=== PATIENT | male | born 1955 | race Caucasian/White ===

== ENCOUNTER → 2018-07-24 08:52 | Outpatient (CLI) | payer BC, SELFPAY | PROVIDERS: Visit Provider Orthopaedic Surgery | DX: S83.241A Other tear of medial meniscus, current injury, right knee, initial encounter (principal); Z01.818 Encounter for other preprocedural examination | CPT/HCPCS: 93005 ==

== ENCOUNTER → 2020-02-23 12:54 | Outpatient (CLI) | payer BC, SELFPAY ==
[2020-02-23 13:15] LABS: COVID19 -Nasal RAPID Negative (Negative)
== END ==
PROVIDERS: Visit Provider Physician Assistant
DX: Z11.59 Encounter for screening for other viral diseases (principal)
CPT/HCPCS: 87635

== ENCOUNTER → 2020-02-23 13:10 | Outpatient (CLI) | payer BC, SELFPAY ==
--- NOTE | 2020-02-23 13:12 | DI.RAD.S_ITS ---
PROCEDURE: XR CHEST 2V INDICATIONS: fever, fatigue, weight loss, 40 yr smoker TECHNIQUE: 2 views of the chest were acquired. COMPARISON: [facility], , CHEST 2 VIEW, 09/23/2009, 16:11. FINDINGS: Surgical changes and devices: None. Lungs and pleura: Lungs are clear. No pleural effusions or pneumothorax. Mediastinum: Mediastinal contours are normal. Heart size is normal. Bones and chest wall: No suspicious bony abnormalities. Soft tissues appear unremarkable. IMPRESSION: No evidence acute pulmonary process. Dictated by: Jenaro Weinberg M.D. on 02/23/2020 at 13:58 Approved by: Jenaro Weinberg M.D. on 02/23/2020 at 13:58
[2020-02-23 13:35] LABS: Add Manual Diff / Slide Review NO; Basophils Absolute Auto 0 /uL (0-100); Basophils Percent Auto 0.4 % (0-2); Eosinophils Absolute Auto 300 /uL (0-450); Eosinophils Percent Auto 2.6 % (2-4); Hematocrit 41.4 % (41-53); Lymphocytes Absolute Auto 2400 /uL (1100-4500); Lymphocytes Percent Auto 25.2 % (25-40); Mean Corpuscular HGB Conc 33.9 % (30-36); Mean Corpuscular Hemoglobin 31.1 PG (26-34); Mean Corpuscular Volume 91.6 fL (80-100); Monocytes Absolute Auto 900 /uL (0-900); Monocytes Percent Auto 9.1 % (3-14); Neutrophils Absolute Auto 6100 /uL (1500-7000); Neutrophils Percent Auto 62.7 % (50-75); Platelet Count 331 X10^3/uL (150-400); Red Blood Cell Count 4.52 X10^6/uL (4.5-5.9); Red Cell Distribution Width 13.1 % (11.6-14.8); White Blood Cell Count 9.7 X10^3/uL (4.5-11.0)
[2020-02-23 13:44] LABS: Monotest Negative (Negative)
[2020-02-23 13:50] LABS: Alanine Aminotransferase 42 IU/L (<50); Albumin 4.7 g/dL (3.5-5.0); Albumin Globulin Ratio 1.2 (1.0-2.8); Alkaline Phosphatase 59 U/L (38-126); Amylase 67 U/L (30-110); Aspartate Aminotransferase 27 IU/L (17-59); BUN Creatinine Ratio 14.3 (6-22); Bilirubin Total 0.5 mg/dL (0.2-1.3); Blood Urea Nitrogen 13 mg/dL (9-20); Calcium 9.5 mg/dL (8.4-10.2); Carbon Dioxide 31 mmol/L (22-32); Chloride 101 mmol/L (98-107); Estimated Glomerular Filt Rate > 60.0 mL/min (>60); Globulin 3.9 g/dL (1.7-4.1); Glucose 96 mg/dL (80-110); HEMOLYSIS < 15 (0-50); Lipase 128 U/L (23-300); Potassium 4.8 mmol/L (3.4-5.1); Sodium 137 mmol/L (137-145); Total Protein 8.6 g/dL (6.3-8.2)
[2020-02-23 14:06] LABS: Procalcitonin < 0.05 ng/mL (<0.5)
[2020-02-23 14:25] LABS: TSH w/ Reflex to FT4 2.14 uIU/mL (0.47-4.68)
[2020-02-23 16:20] LABS: HIV 1 & 2 Ab/Ag 4th Gen Combo NEGATIVE (NEGATIVE)
== END ==
PROVIDERS: Referring Provider Physician Assistant; Visit Provider Physician Assistant
DX: R50.9 Fever, unspecified (principal); R53.83 Other fatigue; R63.4 Abnormal weight loss; Z11.59 Encounter for screening for other viral diseases; F17.200 Nicotine dependence, unspecified, uncomplicated
CPT/HCPCS: 36415; 71046; 80053; 82150; 83690; 84145; 84443; 85025; 86318; 87389; 87635

== ENCOUNTER → 2022-12-31 11:53 | Outpatient (CLI) | payer MEDICARE, OTHER, SELFPAY ==
[2023-01-01 08:57] LABS: Fecal Immunochemical Test Negative (Negative)
== END ==
PROVIDERS: PCP Student in an Organized Health Care Education/Training Program; Referring Provider Student in an Organized Health Care Education/Training Program; Visit Provider Student in an Organized Health Care Education/Training Program
DX: Z12.11 Encounter for screening for malignant neoplasm of colon (principal)
CPT/HCPCS: 82274

== ENCOUNTER → 2023-01-01 07:39 | Outpatient (CLI) | payer MEDICARE, OTHER, SELFPAY ==
[2023-01-01 08:16] LABS: Add Manual Diff / Slide Review NO; Basophils Absolute Auto 0 /uL (0-100); Basophils Percent Auto 0.6 % (0-2); Eosinophils Absolute Auto 300 /uL (0-450); Eosinophils Percent Auto 4.3 % (2-4); Hematocrit 42.2 % (41-53); Hemoglobin 14.4 g/dL (13.5-17.5); Lymphocytes Absolute Auto 1900 /uL (1100-4500); Lymphocytes Percent Auto 28.9 % (25-40); Mean Corpuscular HGB Conc 34.2 % (30-36); Mean Corpuscular Hemoglobin 31.6 PG (26-34); Mean Corpuscular Volume 92.5 fL (80-100); Monocytes Absolute Auto 600 /uL (0-900); Monocytes Percent Auto 8.4 % (3-14); Neutrophils Absolute Auto 3900 /uL (1500-7000); Neutrophils Percent Auto 57.8 % (50-75); Platelet Count 196 X10^3/uL (150-400); Red Blood Cell Count 4.56 X10^6/uL (4.5-5.9); Red Cell Distribution Width 13.6 % (11.6-14.8); White Blood Cell Count 6.7 X10^3/uL (4.5-11.0)
[2023-01-01 08:52] LABS: Alanine Aminotransferase 48 IU/L (<50); Albumin 4.5 g/dL (3.5-5.0); Albumin Globulin Ratio 1.4 (1.0-2.8); Alkaline Phosphatase 52 U/L (38-126); Aspartate Aminotransferase 32 IU/L (17-59); BUN Creatinine Ratio 17.6 (6-22); Bilirubin Total 0.6 mg/dL (0.2-1.3); Blood Urea Nitrogen 19 mg/dL (9-20); Calcium 9.6 mg/dL (8.4-10.2); Carbon Dioxide 27 mmol/L (22-32); Chloride 104 mmol/L (98-107); Cholesterol 255 mg/dL (140-199); Estimated Glomerular Filt Rate > 60 mL/min (>60); Globulin 3.3 g/dL (1.7-4.1); Glucose 111 mg/dL (80-110); HDL Cholesterol 63 mg/dL (40-60); HEMOLYSIS < 15 (0-50); LDL Cholesterol Calculated 168 mg/dL (<100); Potassium 4.5 mmol/L (3.4-5.1); Sodium 139 mmol/L (137-145); Total Protein 7.8 g/dL (6.3-8.2); Triglycerides 121 mg/dL (35-150)
[2023-01-01 09:19] LABS: Prostate Specific Antigen Scrn 0.997 ng/mL (0.1-4.0)
== END ==
PROVIDERS: PCP Student in an Organized Health Care Education/Training Program; Referring Provider Student in an Organized Health Care Education/Training Program; Visit Provider Student in an Organized Health Care Education/Training Program
DX: I10 Essential (primary) hypertension (principal); Z12.5 Encounter for screening for malignant neoplasm of prostate; R53.83 Other fatigue
CPT/HCPCS: 36415; 80053; 80061; 85025; G0103

== ENCOUNTER → 2023-01-07 10:48 | Outpatient (CLI) | payer MEDICARE, OTHER, SELFPAY ==
--- NOTE | 2023-01-07 10:50 | DI.CT.S_ITS ---
PROCEDURE: CT LUNG LOW DOSE SCREENING INDICATIONS: lung cancer screening TECHNIQUE: Noncontrast 2.0-2.5 mm thick sections acquired from the pulmonary apices to the posterior costophrenic angles. 7 mm thick axial MIP, and 5 mm coronal and sagittal reformats were then acquired. A low radiation dose technique was utilized. COMPARISON: None. FINDINGS: Image quality: Diagnostic, given the low radiation dose technique. Lungs and pleura: A 7 mm pulmonary nodule is present within the superior segment of the right lower lobe (series 3/image 122). A pulmonary bleb is present within the anterior aspect of the left upper lobe. Mediastinum: Heart size is normal. No pericardial effusion. No mediastinal adenopathy by size criteria. Thoracic aorta and central pulmonary arteries are normal in size. Scattered atheromatous calcifications are present within the aortic arch. Esophagus is normal in caliber. No hiatal hernia. Bones and chest wall: No suspicious bony lesions. No vertebral body compression fractures. No axillary or supraclavicular adenopathy by size criteria. Thyroid gland is unremarkable. Abdomen: Visualized upper abdomen solid organs and bowel loops appear normal in the absence of contrast. IMPRESSION: 7 mm right lower lobe pulmonary nodule. LUNG-RADS 3; 6 month follow-up CT recommended to ensure stability. Dictated by: Claudia Rice M.D. on 01/07/2023 at 15:45 Approved by: Claudia Rice M.D. on 01/07/2023 at 15:50
== END ==
PROVIDERS: PCP Student in an Organized Health Care Education/Training Program; Referring Provider Student in an Organized Health Care Education/Training Program; Visit Provider Student in an Organized Health Care Education/Training Program
DX: F17.210 Nicotine dependence, cigarettes, uncomplicated (principal); R91.1 Solitary pulmonary nodule
CPT/HCPCS: 71271

== ENCOUNTER 2023-02-21 08:15 | Outpatient (RCR) | payer MEDICARE, OTHER, SELFPAY ==
--- NOTE | 2023-01-15 16:38 | PT.OIE ---
Current Diagnoses Unspecified disorder of synovium and tendon, unspecified ankle and foot (01/15/23) Achilles tendinitis, unspecified leg (01/15/23) Strain of right Achilles tendon, subsequent encounter (01/15/23) Strain of unspecified Achilles tendon, initial encounter (01/15/23) Past Medical History (Last Updated 02/23/20 @ 13:02 by Cris Abernathy PA-C) Fatigue Fever Visit Care Team Role Provider Type Taylor Sarabia MD Attending Provider Physician Family Provider Primary Care Provider Referring Provider Specialty: Family Practice Obstetrics Address: [address] [place] [address] Email: [email or web address] Physical Therapy Initial Evaluation PT-OP-A Visit Information Start: 01/15/23 09:16 Freq: Status: Active Protocol: Document 01/15/23 09:19 AB (Rec: 01/15/23 16:21 AB [id number]) Out-Patient Physical Therapy Visit Information Visit Information Visit Type Initial Evaluation Visit Start Time 09:15 Visit Stop Time 10:00 Total Visit Minutes 45 Visit Number 1 PT-OP-B Current Condition Start: 01/15/23 09:16 Freq: Status: Active Protocol: Document 01/15/23 09:19 AB (Rec: 01/15/23 16:21 AB [id number]) Current Condition History of Current Condition Onset Date 11/28/22 History of Current Condition Pt started running and felt a lot pain in his calf, like some hit him with a baseball bat. Went to ER was diagnosed with Achilles tendon tear. He was given muscle relaxers and was splinted and given crutches. He was on vacation at the time, so he was unable to see an ortho or go to PT. Since then, he no longer uses any pain meds, but does not feel like he is back to 100%. He doesn't has difficulty with ADLs or IADLs, but doesn't feel like he can participate in recreational activities such as hiking, etc. He was referred by PCP. Treatment Goals Patient/Caregiver Goals To return to recreational activities. PT-OP-C Subjective Start: 01/15/23 09:16 Freq: Status: Active Protocol: Document 01/15/23 09:19 AB (Rec: 01/15/23 16:21 AB [id number]) OP-PT Subjective Patient Comments Patient Comments See hx of current condition Patient Questionnaires Foot & Ankle Ability Measure- ADL and Sports FAAM-ADL Score 62/84 FAAM-ADL Impairment 20 to 39% Impaired (Score 50- 66) FAAM-Sport Score 21/32 FAAM-Sport Impairment 20 to 39% Impaired (Score 19- 24) Lower Extremity Functional Scale LEFS Score 53/80 LEFS Impairment 20 to 39% Impaired (Score 48- 62) PT-OP-E Functional Tests Start: 01/15/23 09:16 Freq: Status: Active Protocol: Document 01/15/23 09:19 AB (Rec: 01/15/23 16:21 AB [id number]) Functional Tests Squat Test Comments weight shifts to left side PT-OP-J Posture/Palpation/Skin Start: 01/15/23 09:16 Freq: Status: Active Protocol: Document 01/15/23 09:19 AB (Rec: 01/15/23 16:21 AB [id number]) Palpation Assessment Location right achilles Palpation Location right Achilles Palpation Findings None/Normal Palpation Details Pt reports very mild tenderness at distal portion of calf muscles , however mild increased thickness noted over mid portion of tendon on medial side PT-OP-K Range of Motion Start: 01/15/23 09:16 Freq: Status: Active Protocol: Document 01/15/23 09:19 AB (Rec: 01/15/23 16:21 AB [id number]) Ankle and Foot Goniometric Range of Motion Ankle and Foot Right Active Ankle/Foot ROM WFL Yes Testing Position Sitting Dorsiflexion with Knee Flexed 5 Plantarflexion 45 Inversion 35 Eversion 15 Left Active Ankle/Foot ROM WFL Yes Testing Position Sitting Dorsiflexion with Knee Extended 8 Plantarflexion 45 Inversion 35 Eversion 10 Comments Denies symptoms PT-OP-L Special Tests Start: 01/15/23 09:16 Freq: Status: Active Protocol: Document 01/15/23 09:19 AB (Rec: 01/15/23 16:21 AB [id number]) Special Tests Foot/Ankle Special Tests Wall ankle DF mobility test Test Results R: 2.75 from wall; L: 1.5 from wall Comments Pt is in half kneeling position with foot about a horizontal hand away from wall . Pt tries to touch knee to wall without lifting heel [place] Test Results negative bilaterally PT-OP-M Strength Start: 01/15/23 09:16 Freq: Status: Active Protocol: Document 01/15/23 09:19 AB (Rec: 01/15/23 16:21 AB [id number]) Ankle/Foot Strength Ankle and Foot Manual Muscle Testing Right Dorsiflexion (L4) 5 Normal Plantarflexion (S1) 5 Normal Comments Able to perform 10 heel raises with knee ext and knee flex, but pt reports feeling a difference compared to right side Left Dorsiflexion (L4) 5 Normal Plantarflexion (S1) 5 Normal Comments Able to perform 10 heel raises with knee ext and knee flex PT-OP-Q Treatments Start: 01/15/23 09:16 Freq: Status: Active Protocol: Document 01/15/23 09:19 AB (Rec: 01/15/23 16:21 AB [id number]) Therapeutic Exercises Standing Exercises Lunges Side bilateral Reps/Minutes 1x10 Comments only going down as far as able with knee pain Elevated heel raises Standing Exercise Name Standing with heels off step Side bilateral Reps/Minutes 1x15 ea Comments 1 set toes forward, 1 set toes out, 1 set toes in ankle DF on step Standing Exercise Name foot on step, leaning forward for ankle DF Side right Reps/Minutes 2x30 sec Self-Care/Home Management Treatment Education Patient Education Home Exercise Program,Pain Management PT-OP-T Assessment and Plan Start: 01/15/23 09:16 Freq: Status: Active Protocol: Document 01/15/23 09:19 AB (Rec: 01/15/23 16:21 AB [id number]) Physical Therapy Assessment Rehab Potential Rehabilitation Potential Good Evaluation Complexity Number of Personal Factors/Comorbidities 1-2 Number of Body Systems Impaired 1-2 Clinical Presentation at Evaluation Stable Impairments Impairments Activity Tolerance,Balance, Functional Mobility,Gait,Pain, Posture,ROM,Soft Tissue Mobility,Strength Goals 5 Impairment Return to activity Short Term Goal (STG) Pt to report being able to return to recreational walking with minimal to no symptoms to show improving level of function. STG Duration 4 Senior Care Goal (LTG) Pt to report being able to return to all recreational activities with no symptoms to show return to PLOF. LTG Duration 6 Four Impairment Patient Questionnaire Short Term Goal (STG) LEFS score and FAAM score to improve by 10 points or better to show improving subjective report of symptoms for an improved QOL. STG Duration 4 Senior Care Goal (LTG) LEFS score and FAAM score to improve by 15 points or better to show improving subjective report of symptoms for an improved QOL. LTG Duration 6 Three Impairment Squat mechanics Short Term Goal (STG) Pt to be able to perform squat without weight shift to 120 degrees of knee flexion in order to show improving squat mechanics. STG Duration 4 Industrial Service Technician Goal (LTG) Pt to be able to perform squat without weight shift to 100 degrees of knee flexion in order to show improving squat mechanics. LTG Duration 6 Two Impairment Ankle DF Short Term Goal (STG) Pt's wall ankle DF mobility test to improve to 2 inches or less to show improving ankle mobility to show improving soft tissue and joint mobility to improve squat mechanics and gait mechanics. STG Duration 4 Industrial Service Technician Goal (LTG) Pt's wall ankle DF mobility test to improve to 1.5 inches or less to show improving ankle mobility to show improving soft tissue and joint mobility to improve squat mechanics and gait mechanics. LTG Duration 6 One Impairment Ankle DF Short Term Goal (STG) Pt's ankle DF AROM to improve to 10 degrees or better to show improving soft tissue and joint mobility to improve squat mechanics and gait mechanics. STG Duration 4 Senior Care Goal (LTG) Pt's ankle DF AROM to improve to 15 degrees or better to show improving soft tissue and joint mobility to improve squat mechanics and gait mechanics. LTG Duration 6 Assessment Summary Assessment Giuliano Vickers is a 67 year old male patient presenting to outpatient PT with complaints of right ankle mobility deficits and activity limitations secondary to an Achilles tendon tear which occurred on 11/28/22. Today's PT evaluation revealed ankle mobility deficits, soft tissue mobility deficits and tenderness, and functional mobility deficits. These impairments are limiting the pt's ability to participate in recreational activities. Based on today's findings the pt would benefit from skilled PT as per his established POC to improve these and return to his PLOF and active lifestyle , as well as to reduce future risk of re-injury. Physical Therapy Plan Frequency and Duration Frequency of Treatment 2x/Week Duration of treatment (weeks) 6 Plan of Care Start Date 01/15/23 Plan of Care End Date 02/26/23 Therapeutic Interventions Therapeutic Interventions Balance Training,Coordination Training,Gait Training,Home Exercise Program,Joint Mobilizations,Manual Therapy, Neuromuscular Re-education, Orthotic/Prosthetic Management ,Patient/Caregiver Education, Self-Care/Home Management,Soft Tissue Mobilization,Taping, Therapeutic Activities, Therapeutic Exercises Modalities Cold Pack/Ice Massage,Electric Stimulation,Hot Packs Next Visit Focus/Plan Next Note Type Treatment Note Next Visit Plan Review HEP. Add calf/ankle strengthening exercises, including single leg exercises . Slowly add plyometrics on shuttle recovery as tolerated. Warm up on treadmill or elliptical.
--- NOTE | 2023-01-15 16:39 | PT.OPPOC ---
Physical, Occupational & Speech Therapy At [facility] Current Diagnoses Unspecified disorder of synovium and tendon, unspecified ankle and foot (01/15/23) Achilles tendinitis, unspecified leg (01/15/23) Strain of right Achilles tendon, subsequent encounter (01/15/23) Strain of unspecified Achilles tendon, initial encounter (01/15/23) Visit Care Team Role Provider Type Taylor Sarabia MD Attending Provider Physician Family Provider Primary Care Provider Referring Provider Specialty: Family Practice Obstetrics Address: [address] [place] [address], [facility] Email: [email or web address] Plan Of Care PT-OP-T Assessment and Plan Start: 01/15/23 09:16 Freq: Status: Active Protocol: Document 01/15/23 09:19 AB (Rec: 01/15/23 16:21 AB [id number]) Physical Therapy Assessment Rehab Potential Rehabilitation Potential Good Evaluation Complexity Number of Personal Factors/Comorbidities 1-2 Number of Body Systems Impaired 1-2 Clinical Presentation at Evaluation Stable Impairments Impairments Activity Tolerance,Balance, Functional Mobility,Gait,Pain, Posture,ROM,Soft Tissue Mobility,Strength Goals 5 Impairment Return to activity Short Term Goal (STG) Pt to report being able to return to recreational walking with minimal to no symptoms to show improving level of function. STG Duration 4 Prison Goal (LTG) Pt to report being able to return to all recreational activities with no symptoms to show return to PLOF. LTG Duration 6 Four Impairment Patient Questionnaire Short Term Goal (STG) LEFS score and FAAM score to improve by 10 points or better to show improving subjective report of symptoms for an improved QOL. STG Duration 4 Prison Goal (LTG) LEFS score and FAAM score to improve by 15 points or better to show improving subjective report of symptoms for an improved QOL. LTG Duration 6 Three Impairment Squat mechanics Short Term Goal (STG) Pt to be able to perform squat without weight shift to 120 degrees of knee flexion in order to show improving squat mechanics. STG Duration 4 Exceptional Children Teacher Goal (LTG) Pt to be able to perform squat without weight shift to 100 degrees of knee flexion in order to show improving squat mechanics. LTG Duration 6 Two Impairment Ankle DF Short Term Goal (STG) Pt's wall ankle DF mobility test to improve to 2 inches or less to show improving ankle mobility to show improving soft tissue and joint mobility to improve squat mechanics and gait mechanics. STG Duration 4 Exceptional Children Teacher Goal (LTG) Pt's wall ankle DF mobility test to improve to 1.5 inches or less to show improving ankle mobility to show improving soft tissue and joint mobility to improve squat mechanics and gait mechanics. LTG Duration 6 One Impairment Ankle DF Short Term Goal (STG) Pt's ankle DF AROM to improve to 10 degrees or better to show improving soft tissue and joint mobility to improve squat mechanics and gait mechanics. STG Duration 4 Exceptional Children Teacher Goal (LTG) Pt's ankle DF AROM to improve to 15 degrees or better to show improving soft tissue and joint mobility to improve squat mechanics and gait mechanics. LTG Duration 6 Assessment Summary Assessment Giuliano Vickers is a 67 year old male patient presenting to outpatient PT with complaints of right ankle mobility deficits and activity limitations secondary to an Achilles tendon tear which occurred on 11/28/22. Today's PT evaluation revealed ankle mobility deficits, soft tissue mobility deficits and tenderness, and functional mobility deficits. These impairments are limiting the pt's ability to participate in recreational activities. Based on today's findings the pt would benefit from skilled PT as per his established POC to improve these and return to his PLOF and active lifestyle , as well as to reduce future risk of re-injury. Physical Therapy Plan Frequency and Duration Frequency of Treatment 2x/Week Duration of treatment (weeks) 6 Plan of Care Start Date 01/15/23 Plan of Care End Date 02/26/23 Therapeutic Interventions Therapeutic Interventions Balance Training,Coordination Training,Gait Training,Home Exercise Program,Joint Mobilizations,Manual Therapy, Neuromuscular Re-education, Orthotic/Prosthetic Management ,Patient/Caregiver Education, Self-Care/Home Management,Soft Tissue Mobilization,Taping, Therapeutic Activities, Therapeutic Exercises Modalities Cold Pack/Ice Massage,Electric Stimulation,Hot Packs Next Visit Focus/Plan Next Note Type Treatment Note Next Visit Plan Review HEP. Add calf/ankle strengthening exercises, including single leg exercises . Slowly add plyometrics on shuttle recovery as tolerated. Warm up on treadmill or elliptical. Plan of Care Dates Plan of Care Start Date 01/15/23 Plan of Care End Date 02/26/23 Electronically Signed by: Jf Turner, PT 01/15/23 [id number] If you are in agreement with this Plan of Care, please return a signed and dated copy. I have reviewed this Plan of Care and certify that the skilled therapy services above are required to meet the patient?s needs. Physician Signature Date Printed Name and Credentials Clinical Instructor Signature Printed Name and Credentials
--- NOTE | 2023-01-20 10:57 | PT.OTN ---
Current Diagnoses Unspecified disorder of synovium and tendon, unspecified ankle and foot (01/20/23) Achilles tendinitis, unspecified leg (01/20/23) Strain of right Achilles tendon, subsequent encounter (01/20/23) Strain of unspecified Achilles tendon, initial encounter (01/20/23) Physical Therapy Treatment Note PT-OP-A Visit Information Start: 01/15/23 09:16 Freq: Status: Active Protocol: Document 01/20/23 10:04 AB (Rec: 01/20/23 10:57 AB [id number]) Out-Patient Physical Therapy Visit Information Visit Information Visit Type Treatment Note Visit Start Time 10:00 Visit Stop Time 10:40 Total Visit Minutes 40 Visit Number 2 Evaluation Information Evaluation Date 01/15/23 PT-OP-B Current Condition Start: 01/15/23 09:16 Freq: Status: Active Protocol: Document 01/15/23 09:19 AB (Rec: 01/15/23 16:21 AB [id number]) Current Condition History of Current Condition Onset Date 11/28/22 History of Current Condition Pt started running and felt a lot pain in his calf, like some hit him with a baseball bat. Went to ER was diagnosed with Achilles tendon tear. He was given muscle relaxers and was splinted and given crutches. He was on vacation at the time, so he was unable to see an ortho or go to PT. Since then, he no longer uses any pain meds, but does not feel like he is back to 100%. He doesn't has difficulty with ADLs or IADLs, but doesn't feel like he can participate in recreational activities such as hiking, etc. He was referred by PCP. Treatment Goals Patient/Caregiver Goals To return to recreational activities. PT-OP-C Subjective Start: 01/15/23 09:16 Freq: Status: Active Protocol: Document 01/20/23 10:04 AB (Rec: 01/20/23 10:57 AB [id number]) OP-PT Subjective Patient Comments Patient Comments The pt reports the HEP made him really sore initially, but improved over the last couple of days as he continued to do it. PT-OP-E Functional Tests Start: 01/15/23 09:16 Freq: Status: Active Protocol: Document 01/15/23 09:19 AB (Rec: 01/15/23 16:21 AB [id number]) Functional Tests Squat Test Comments weightshifts to left side PT-OP-J Posture/Palpation/Skin Start: 01/15/23 09:16 Freq: Status: Active Protocol: Document 01/15/23 09:19 AB (Rec: 01/15/23 16:21 AB [id number]) Palpation Assessment Location right achilles Palpation Location right achilles Palpation Findings None/Normal Palpation Details Pt reports very mild tenderness at distal portion of calf muscles , however mild increased thickness noted over mid portion of tendon on medial side PT-OP-K Range of Motion Start: 01/15/23 09:16 Freq: Status: Active Protocol: Document 01/15/23 09:19 AB (Rec: 01/15/23 16:21 AB [id number]) Ankle and Foot Goniometric Range of Motion Ankle and Foot Right Active Ankle/Foot ROM WFL Yes Testing Position Sitting Dorsiflexion with Knee Flexed 5 Plantarflexion 45 Inversion 35 Eversion 15 Left Active Ankle/Foot ROM WFL Yes Testing Position Sitting Dorsiflexion with Knee Extended 8 Plantarflexion 45 Inversion 35 Eversion 10 Comments Denies symptoms PT-OP-L Special Tests Start: 01/15/23 09:16 Freq: Status: Active Protocol: Document 01/15/23 09:19 AB (Rec: 01/15/23 16:21 AB [id number]) Special Tests Foot/Ankle Special Tests Wall ankle DF mobility test Test Results R: 2.75 from wall; L: 1.5 from wall Comments Pt is in half kneeling position with foot about a horizontal hand away from wall . Pt tries to touch knee to wall without lifting heel [place] Test Results negative bilaterally PT-OP-M Strength Start: 01/15/23 09:16 Freq: Status: Active Protocol: Document 01/15/23 09:19 AB (Rec: 01/15/23 16:21 AB [id number]) Ankle/Foot Strength Ankle and Foot Manual Muscle Testing Right Dorsiflexion (L4) 5 Normal Plantarflexion (S1) 5 Normal Comments Able to perform 10 heel raises with knee ext and knee flex, but pt reports feeling a difference compared to right side Left Dorsiflexion (L4) 5 Normal Plantarflexion (S1) 5 Normal Comments Able to perform 10 heel raises with knee ext and knee flex PT-OP-Q Treatments Start: 01/15/23 09:16 Freq: Status: Active Protocol: Document 01/20/23 10:04 AB (Rec: 01/20/23 10:57 AB [id number]) Cardio Equipment Treadmill Duration (Minutes) 6 Incline 0 Therapeutic Exercises Standing Exercises Gastroc and soleus stretch Side right Equipment Used Jose Reps/Minutes 2x30 sec ea Soleus raises Side bilateral Reps/Minutes 2x15 Comments BUE support Toe walking Standing Exercise Name toe walking> heel to heel raise walking Side bilateral Reps/Minutes 1 lap reg toe walking; 2 laps heel to heel raise walking Deep Squats Standing Exercise Name Deep squats with bilat UE support Reps/Minutes 2x10, 5 sec hold Comments focus: deep ROM to improve ankle ROM, stopping if wtshift or pain Step ups on BOSU Side bilateral Equipment Used BOSU ball (flat side down) Reps/Minutes 2x10 ea Lunges Side bilateral Reps/Minutes 1x10 Comments only going down as far as able with knee pain Elevated heel raises Standing Exercise Name Standing with heels off step Side bilateral Reps/Minutes 1x15 ea Comments 1 set toes forward, 1 set toes out, 1 set toes in ankle DF on step Standing Exercise Name foot on step, leaning forward for ankle DF Side right Reps/Minutes 2x30 sec Self-Care/Home Management Treatment Education Patient Education Home Exercise Program,Pain Management PT-OP-T Assessment and Plan Start: 01/15/23 09:16 Freq: Status: Active Protocol: Document 01/20/23 10:04 AB (Rec: 01/20/23 10:57 AB [id number]) Physical Therapy Assessment Goals 5 Impairment Return to activity Short Term Goal (STG) Pt to report being able to return to recreational walking with minimal to no symptoms to show improving level of function. STG Duration 4 Usp Goal (LTG) Pt to report being able to return to all recreational activities with no symptoms to show return to PLOF. LTG Duration 6 Four Impairment Patient Questionnaire Short Term Goal (STG) LEFS score and FAAM score to improve by 10 points or better to show improving subjective report of symptoms for an improved QOL. STG Duration 4 Usp Goal (LTG) LEFS score and FAAM score to improve by 15 points or better to show improving subjective report of symptoms for an improved QOL. LTG Duration 6 Three Impairment Squat mechanics Short Term Goal (STG) Pt to be able to perform squat without weightshift to 120 degress of knee flexion in order to show improving squat mechanics. STG Duration 4 Semicon[employer] Wafers Etch Operator Goal (LTG) Pt to be able to perform squat without weightshift to 100 degress of knee flexion in order to show improving squat mechanics. LTG Duration 6 Two Impairment Ankle DF Short Term Goal (STG) Pt's wall ankle DF mobility test to improve to 2 inches or less to show improving ankle mobility to show improving soft tissue and joint mobility to improve squat mechanics and gait mechanics. STG Duration 4 Usp Goal (LTG) Pt's wall ankle DF mobility test to improve to 1.5 inches or less to show improving ankle mobility to show improving soft tissue and joint mobility to improve squat mechanics and gait mechanics. LTG Duration 6 One Impairment Ankle DF Short Term Goal (STG) Pt's ankle DF AROM to improve to 10 degrees or better to show improving soft tissue and joint mobility to improve squat mechanics and gait mechanics. STG Duration 4 Usp Goal (LTG) Pt's ankle DF AROM to improve to 15 degrees or better to show improving soft tissue and joint mobility to improve squat mechanics and gait mechanics. LTG Duration 6 Assessment Summary Assessment Palomo demonstrated good form with HEP therex, requiring minimal cues to perform with good form. He was progressed through additional LE strengthening and mobility exercises to improve the deficits found during initial evaluation. Towards the end of the session, the pt began to report increased muscular fatigue and required extended breaks to complete exercises. Next visit, assess his tolerance to today's session and regress or progress as indicated. Physical Therapy Plan Frequency and Duration Frequency of Treatment 2x/Week Duration of treatment (weeks) 6 Plan of Care Start Date 01/15/23 Plan of Care End Date 02/26/23 Therapeutic Interventions Therapeutic Interventions Balance Training,Coordination Training,Gait Training,Home Exercise Program,Joint Mobilizations,Manual Therapy, Neuromuscular Re-education, Orthotic/Prosthetic Management ,Patient/Caregiver Education, Self-Care/Home Management,Soft Tissue Mobilization,Taping, Therapeutic Activities, Therapeutic Exercises Modalities Cold Pack/Ice Massage,Electric Stimulation,Hot Packs Next Visit Focus/Plan Next Note Type Treatment Note Next Visit Plan Add calf/ankle strengthening exercises, including single leg exercises. Slowly add plyometrics on shuttle recovery as tolerated. Warm up on treadmill or elliptical.
--- NOTE | 2023-01-22 11:23 | PT.OTN ---
Current Diagnoses Unspecified disorder of synovium and tendon, unspecified ankle and foot (01/22/23) Achilles tendinitis, unspecified leg (01/22/23) Strain of right Achilles tendon, subsequent encounter (01/22/23) Strain of unspecified Achilles tendon, initial encounter (01/22/23) Physical Therapy Treatment Note PT-OP-A Visit Information Start: 01/15/23 09:16 Freq: Status: Active Protocol: Document 01/22/23 10:58 AB (Rec: 01/22/23 11: AB [id number]) Out-Patient Physical Therapy Visit Information Visit Information Visit Type Treatment Note Visit Start Time 10:00 Visit Stop Time 10:40 Total Visit Minutes 40 Visit Number 3 Evaluation Information Evaluation Date 01/15/23 PT-OP-B Current Condition Start: 01/15/23 09:16 Freq: Status: Active Protocol: Document 01/15/23 09:19 AB (Rec: 01/15/23 16:21 AB [id number]) Current Condition History of Current Condition Onset Date 11/28/22 History of Current Condition Pt started running and felt a lot pain in his calf, like some hit him with a baseball bat. Went to ER was diagnosed with achilles tendon tear. He was given muscle relaxers and was splinted and given crtuches. He was on vacation at the time, so he was unable to see an ortho or go to PT. Since then, he no longer uses any pain meds, but does not feel like he is back to 100%. He doesn't has difficulty with ADLs or IADLs, but doesn't feel like he can participate in recreational activities such as hiking, etc. He was referred by PCP. Treatment Goals Patient/Caregiver Goals To return to recreational activities. PT-OP-C Subjective Start: 01/15/23 09:16 Freq: Status: Active Protocol: Document 01/22/23 10:58 AB (Rec: 01/22/23 11: AB [id number]) OP-PT Subjective Patient Comments Patient Comments The pt reports he felt a little sore after Friday's session, but reports he was able to perform daily activities and HEP without issue. PT-OP-E Functional Tests Start: 01/15/23 09:16 Freq: Status: Active Protocol: Document 01/15/23 09:19 AB (Rec: 01/15/23 16:21 AB [id number]) Functional Tests Squat Test Comments weightshifts to left side PT-OP-J Posture/Palpation/Skin Start: 01/15/23 09:16 Freq: Status: Active Protocol: Document 01/15/23 09:19 AB (Rec: 01/15/23 16:21 AB [id number]) Palpation Assessment Location right achilles Palpation Location right achilles Palpation Findings None/Normal Palpation Details Pt reports very mild tnederness at distal portion of calf muscles , however mild increased thickness noted over mid portion of tendon on medial side PT-OP-K Range of Motion Start: 01/15/23 09:16 Freq: Status: Active Protocol: Document 01/15/23 09:19 AB (Rec: 01/15/23 16:21 AB [id number]) Ankle and Foot Goniometric Range of Motion Ankle and Foot Right Active Ankle/Foot ROM WFL Yes Testing Position Sitting Dorsiflexion with Knee Flexed 5 Plantarflexion 45 Inversion 35 Eversion 15 Left Active Ankle/Foot ROM WFL Yes Testing Position Sitting Dorsiflexion with Knee Extended 8 Plantarflexion 45 Inversion 35 Eversion 10 Comments Denies symptoms PT-OP-L Special Tests Start: 01/15/23 09:16 Freq: Status: Active Protocol: Document 01/15/23 09:19 AB (Rec: 01/15/23 16:21 AB [id number]) Special Tests Foot/Ankle Special Tests Wall ankle DF mobility test Test Results R: 2.75 from wall; L: 1.5 from wall Comments Pt is in half kneeling position with foot about a horizontal hand away from wall . Pt tries to touch knee to wall without lifting heel [place] Test Results negative bilaterally PT-OP-M Strength Start: 01/15/23 09:16 Freq: Status: Active Protocol: Document 01/15/23 09:19 AB (Rec: 01/15/23 16:21 AB [id number]) Ankle/Foot Strength Ankle and Foot Manual Muscle Testing Right Dorsiflexion (L4) 5 Normal Plantarflexion (S1) 5 Normal Comments Able to perform 10 heel raises with knee ext and knee flex, but pt reports feeling a difference compared to right side Left Dorsiflexion (L4) 5 Normal Plantarflexion (S1) 5 Normal Comments Able to perform 10 heel raises with knee ext and knee flex PT-OP-Q Treatments Start: 01/15/23 09:16 Freq: Status: Active Protocol: Document 01/22/23 10:58 AB (Rec: 01/22/23 11:23 AB [id number]) Cardio Equipment Treadmill Duration (Minutes) 5 Speed 3 Incline 2.5 Therapeutic Exercises Standing Exercises SLS Side bilateral Equipment Used blue airex pad Reps/Minutes 2x30 sec ea Gastroc and soleus stretch Side right Equipment Used Jose Reps/Minutes 3x30 sec ea (total) Comments Dispersed through session during rest breaks Soleus raises Standing Exercise Name Hlaf squat soleus raises Side bilateral Reps/Minutes 2x10 Comments BUE support Toe walking Standing Exercise Name toe walking> heel to heel raise walking Side bilateral Reps/Minutes 1 lap reg toe walking; 2 laps heel to heel raise walking Deep Squats Standing Exercise Name Deep squats with bilat UE support Reps/Minutes 2x10, 5 sec hold Comments focus: deep ROM to improve ankle ROM, stopping if wtshift or pain Step ups on BOSU Side bilateral Equipment Used BOSU ball (flat side down) Reps/Minutes 2x10 ea Self-Care/Home Management Treatment Education Patient Education Home Exercise Program,Pain Management PT-OP-T Assessment and Plan Start: 01/15/23 09:16 Freq: Status: Active Protocol: Document 01/22/23 10:58 AB (Rec: 01/22/23 11:23 AB [id number]) Physical Therapy Assessment Goals 5 Impairment Return to activity Short Term Goal (STG) Pt to report being able to return to recreational walking with minimal to no symptoms to show improving level of function. STG Duration 4 Senior Quality Methods Specialist Goal (LTG) Pt to report being able to return to all recreational activities with no symptoms to show return to PLOF. LTG Duration 6 Four Impairment Patient Questionnaire Short Term Goal (STG) LEFS score and FAAM score to improve by 10 points or better to show improving subjective report of symptoms for an improved QOL. STG Duration 4 Senior Quality Methods Specialist Goal (LTG) LEFS score and FAAM score to improve by 15 points or better to show improving subjective report of symptoms for an improved QOL. LTG Duration 6 Three Impairment Squat mechanics Short Term Goal (STG) Pt to be able to perform squat without weightshift to 120 degrees of knee flexion in order to show improving squat mechanics. STG Duration 4 Assisted Goal (LTG) Pt to be able to perform squat without weightshift to 100 degrees of knee flexion in order to show improving squat mechanics. LTG Duration 6 Two Impairment Ankle DF Short Term Goal (STG) Pt's wall ankle DF mobility test to improve to 2 inches or less to show improving ankle mobility to show improving soft tissue and joint mobility to improve squat mechanics and gait mechanics. STG Duration 4 Assisted Goal (LTG) Pt's wall ankle DF mobility test to improve to 1.5 inches or less to show improving ankle mobility to show improving soft tissue and joint mobility to improve squat mechanics and gait mechanics. LTG Duration 6 One Impairment Ankle DF Short Term Goal (STG) Pt's ankle DF AROM to improve to 10 degrees or better to show improving soft tissue and joint mobility to improve squat mechanics and gait mechanics. STG Duration 4 Assisted Goal (LTG) Pt's ankle DF AROM to improve to 15 degrees or better to show improving soft tissue and joint mobility to improve squat mechanics and gait mechanics. LTG Duration 6 Assessment Summary Assessment Continued with additions from last session, and added SLS to improve lower leg/ankle/foot strength and neuromuscular control. The pt has better tolerance of session today, though a change that was made today was adding calf stretching throughout session to avoid muscle cramps and decrease muscle fatigue. The pt would benefit from slow addition of plyometrics as indicated.
--- NOTE | 2023-02-03 13:11 | PT.OTN ---
Current Diagnoses Unspecified disorder of synovium and tendon, unspecified ankle and foot (02/03/23) Achilles tendinitis, unspecified leg (02/03/23) Strain of right Achilles tendon, subsequent encounter (02/03/23) Strain of unspecified Achilles tendon, initial encounter (02/03/23) Physical Therapy Treatment Note PT-OP-A Visit Information Start: 01/15/23 09:16 Freq: Status: Active Protocol: Document 02/03/23 09:50 NM (Rec: 02/03/23 10:30 NM [id number]) Out-Patient Physical Therapy Visit Information Visit Information Visit Type Treatment Note Visit Start Time 09:45 Visit Stop Time 10:27 Total Visit Minutes 43 Visit Number 4 PT-OP-B Current Condition Start: 01/15/23 09:16 Freq: Status: Active Protocol: Document 01/15/23 09:19 AB (Rec: 01/15/23 16:21 AB [id number]) Current Condition History of Current Condition Onset Date 11/28/22 History of Current Condition Pt started running and felt a lot pain in his calf, like some hit him with a baseball bat. Went to ER was diagnosed with achilles tendon tear. He was given muscle relaxers and was splinted and given crtuches. He was on vacation at the time, so he was unable to see an ortho or go to PT. Since then, he no longer uses any pain meds, but does not feel like he is back to 100%. He doesn't has difficulty with ADLs or IADLs, but doesn't feel like he can participate in recreational activities such as hiking, etc. He was referred by PCP. Treatment Goals Patient/Caregiver Goals To return to recreational activities. PT-OP-C Subjective Start: 01/15/23 09:16 Freq: Status: Active Protocol: Document 02/03/23 09:50 NM (Rec: 02/03/23 10:30 NM [id number]) OP-PT Subjective Patient Comments Patient Comments Pt reports that he is doing well. He was sick last week and just changed to a new blood pressure medication; he thinks the medication gives him a cough and it makes him feel faint when he changes positions. Overall, he says his Achilles is doing well with no soreness or pain; reports compliance with HEP. He does not think that he needs to come into PT for his Achilles because he is doing his exercises at home. Patient Reported Progress Improving PT-OP-E Functional Tests Start: 01/15/23 09:16 Freq: Status: Active Protocol: Document 01/15/23 09:19 AB (Rec: 01/15/23 16:21 AB [id number]) Functional Tests Squat Test Comments weightshifts to left side PT-OP-J Posture/Palpation/Skin Start: 01/15/23 09:16 Freq: Status: Active Protocol: Document 01/15/23 09:19 AB (Rec: 01/15/23 16:21 AB [id number]) Palpation Assessment Location right achilles Palpation Location right achilles Palpation Findings None/Normal Palpation Details Pt reports very mild tnederness at distal portion of calf muscles , however mild increased thickness noted over mid portion of tendon on medial side PT-OP-K Range of Motion Start: 01/15/23 09:16 Freq: Status: Active Protocol: Document 01/15/23 09:19 AB (Rec: 01/15/23 16:21 AB [id number]) Ankle and Foot Goniometric Range of Motion Ankle and Foot Right Active Ankle/Foot ROM WFL Yes Testing Position Sitting Dorsiflexion with Knee Flexed 5 Plantarflexion 45 Inversion 35 Eversion 15 Left Active Ankle/Foot ROM WFL Yes Testing Position Sitting Dorsiflexion with Knee Extended 8 Plantarflexion 45 Inversion 35 Eversion 10 Comments Denies symptoms PT-OP-L Special Tests Start: 01/15/23 09:16 Freq: Status: Active Protocol: Document 01/15/23 09:19 AB (Rec: 01/15/23 16:21 AB [id number]) Special Tests Foot/Ankle Special Tests Wall ankle DF mobility test Test Results R: 2.75 from wall; L: 1.5 from wall Comments Pt is in half kneeling position with foot about a horizontal hand away from wall . Pt tries to touch knee to wall without lifting heel [place] Test Results negative bilaterally PT-OP-M Strength Start: 01/15/23 09:16 Freq: Status: Active Protocol: Document 01/15/23 09:19 AB (Rec: 01/15/23 16:21 AB [id number]) Ankle/Foot Strength Ankle and Foot Manual Muscle Testing Right Dorsiflexion (L4) 5 Normal Plantarflexion (S1) 5 Normal Comments Able to perform 10 heel raises with knee ext and knee flex, but pt reports feeling a difference compared to right side Left Dorsiflexion (L4) 5 Normal Plantarflexion (S1) 5 Normal Comments Able to perform 10 heel raises with knee ext and knee flex PT-OP-Q Treatments Start: 01/15/23 09:16 Freq: Status: Active Protocol: Document 02/03/23 09:50 NM (Rec: 02/03/23 10:30 NM [id number]) Cardio Equipment Treadmill Duration (Minutes) 6 Speed 2.4 Incline 2.5 Other 5 min fwd, 1 min retro (1.5 mph) Gym Equipment Shuttle Recovery soleus raises Resistance 75# (3 navy) Shuttle Recovery Platform Stable Reps/Time 2x10 Plyometric Details B mini-jumps about 2 with soft B landing to progress loading Resistance 12 # Shuttle Recovery Platform Stable Reps/Time x20 Therapeutic Exercises Standing Exercises SLS Side bilateral Equipment Used blue airex pad Reps/Minutes 2x30 sec ea Comments mod unstable, requires occasional UE support for balace Gastroc and soleus stretch Side right Equipment Used Jose Reps/Minutes 3x30 ea Comments Dispersed through session during rest breaks Soleus raises Standing Exercise Name Half squat soleus raises Side bilateral Reps/Minutes 2x12 Comments BUE support Deep Squats Standing Exercise Name Deep squats with bilat UE support Reps/Minutes 2x10, 5 sec hold Comments for: deep ROM to improve ankle ROM; reports knee pain Step ups on BOSU Side bilateral Equipment Used BOSU ball (flat side down) Reps/Minutes 2x12 ea Comments 1 UE support prn for stability ; mod instability, requires UE assist to stab PT-OP-T Assessment and Plan Start: 01/15/23 09:16 Freq: Status: Active Protocol: Document 02/03/23 09:50 NM (Rec: 02/03/23 10:30 NM [id number]) Physical Therapy Assessment Goals 5 Impairment Return to activity Short Term Goal (STG) Pt to report being able to return to recreational walking with minimal to no symptoms to show improving level of function. STG Duration 4 [facility]ci Goal (LTG) Pt to report being able to return to all recreational activities with no symptoms to show return to PLOF. LTG Duration 6 Four Impairment Patient Questionnaire Short Term Goal (STG) LEFS score and FAAM score to improve by 10 points or better to show improving subjective report of symptoms for an improved QOL. STG Duration 4 Production Corrugator Goal (LTG) LEFS score and FAAM score to improve by 15 points or better to show improving subjective report of symptoms for an improved QOL. LTG Duration 6 Three Impairment Squat mechanics Short Term Goal (STG) Pt to be able to perform squat without weightshift to 120 degress of knee flexion in order to show improving squat mechanics. STG Duration 4 Production Cor[employer]ator Goal (LTG) Pt to be able to perform squat without weightshift to 100 degress of knee flexion in order to show improving squat mechanics. LTG Duration 6 Two Impairment Ankle DF Short Term Goal (STG) Pt's wall ankle DF mobility test to improve to 2 inches or less to show improving ankle mobility to show improving soft tissue and joint mobility to improve squat mechanics and gait mechanics. STG Duration 4 Production Corrugator Goal (LTG) Pt's wall ankle DF mobility test to improve to 1.5 inches or less to show improving ankle mobility to show improving soft tissue and joint mobility to improve squat mechanics and gait mechanics. LTG Duration 6 One Impairment Ankle DF Short Term Goal (STG) Pt's ankle DF AROM to improve to 10 degrees or better to show improving soft tissue and joint mobility to improve squat mechanics and gait mechanics. STG Duration 4 Production Corrugator Goal (LTG) Pt's ankle DF AROM to improve to 15 degrees or better to show improving soft tissue and joint mobility to improve squat mechanics and gait mechanics. LTG Duration 6 Assessment Summary Assessment Pt tolerated treatment well. Continued with strengthening soleus and gastroc, in addition to improving R ankle mobility. Pt demos moderate instability during single leg stance on unstable surface and during step-ups onto bosu; would benefit from further ankle stability training on stable and unstable surfaces to maximize mobility and improve balance. Updated HEP to include SLS on stable surface without compensations to promote improved proprioception and stability. Due to pt concerns on whether PT is necessary, educated pt on benefits of progressive Achilles tendon loading over time to decrease risk of reinjury; pt expressed understanding and is interested in working to progress loads. Initiated higher load soleus raises and mild bilateral plyometric loading on the shuttle recovery, which pt tolerated well with no increased pain to R Achilles. Pt would benefit from continued skilled PT to address impairments in R ankle mobility, strength, endurance , and to maximize function. Physical Therapy Plan Frequency and Duration Frequency of Treatment 2x/Week Duration of treatment (weeks) 6 Plan of Care Start Date 01/15/23 Plan of Care End Date 02/26/23 Therapeutic Interventions Therapeutic Interventions Balance Training,Coordination Training,Gait Training,Home Exercise Program,Joint Mobilizations,Manual Therapy, Neuromuscular Re-education, Orthotic/Prosthetic Management ,Patient/Caregiver Education, Self-Care/Home Management,Soft Tissue Mobilization,Taping, Therapeutic Activities, Therapeutic Exercises Modalities Cold Pack/Ice Massage,Electric Stimulation,Hot Packs Next Visit Focus/Plan Next Note Type Treatment Note Next Visit Plan Progress loading of Achilles on shuttle recovery, improve ROM. Emphasize single leg balance activities on stable and unstable surface with eccentric control
--- NOTE | 2023-02-11 11:59 | PT.OTN ---
Current Diagnoses Unspecified disorder of synovium and tendon, unspecified ankle and foot (02/11/23) Achilles tendinitis, unspecified leg (02/11/23) Strain of right Achilles tendon, subsequent encounter (02/11/23) Strain of unspecified Achilles tendon, initial encounter (02/11/23) Physical Therapy Treatment Note PT-OP-A Visit Information Start: 01/15/23 09:16 Freq: Status: Active Protocol: Document 02/11/23 09:53 NM (Rec: 02/11/23 10:37 NM [id number]) Out-Patient Physical Therapy Visit Information Visit Information Visit Type Treatment Note Visit Note PN next visit Visit Start Time 09:47 Visit Stop Time 10:30 Total Visit Minutes 43 Visit Number 5 PT-OP-B Current Condition Start: 01/15/23 09:16 Freq: Status: Active Protocol: Document 01/15/23 09:19 AB (Rec: 01/15/23 16:21 AB [id number]) Current Condition History of Current Condition Onset Date 11/28/22 History of Current Condition Pt started running and felt a lot pain in his calf, like some hit him with a baseball bat. Went to ER was diagnosed with achilles tendon tear. He was given muscle relaxers and was splinted and given crtuches. He was on vacation at the time, so he was unable to see an ortho or go to PT. Since then, he no longer uses any pain meds, but does not feel like he is back to 100%. He doesn't has difficulty with ADLs or IADLs, but doesn't feel like he can participate in recreational activities such as hiking, etc. He was referred by PCP. Treatment Goals Patient/Caregiver Goals To return to recreational activities. PT-OP-C Subjective Start: 01/15/23 09:16 Freq: Status: Active Protocol: Document 02/11/23 09:53 NM (Rec: 02/11/23 10:37 NM [id number]) OP-PT Subjective Patient Comments Patient Comments Pt reports that he was sore after last session, but he has had no pain. He states that his R Achilles is stiff today which is normal for him. He has been walking and doing some of his home exercises but not all. PT-OP-E Functional Tests Start: 01/15/23 09:16 Freq: Status: Active Protocol: Document 01/15/23 09:19 AB (Rec: 01/15/23 16:21 AB [id number]) Functional Tests Squat Test Comments weightshifts to left side PT-OP-J Posture/Palpation/Skin Start: 01/15/23 09:16 Freq: Status: Active Protocol: Document 01/15/23 09:19 AB (Rec: 01/15/23 16:21 AB [id number]) Palpation Assessment Location right achilles Palpation Location right achilles Palpation Findings None/Normal Palpation Details Pt reports very mild tnederness at distal portion of calf muscles , however mild increased thickness noted over mid portion of tendon on medial side PT-OP-K Range of Motion Start: 01/15/23 09:16 Freq: Status: Active Protocol: Document 01/15/23 09:19 AB (Rec: 01/15/23 16:21 AB [id number]) Ankle and Foot Goniometric Range of Motion Ankle and Foot Right Active Ankle/Foot ROM WFL Yes Testing Position Sitting Dorsiflexion with Knee Flexed 5 Plantarflexion 45 Inversion 35 Eversion 15 Left Active Ankle/Foot ROM WFL Yes Testing Position Sitting Dorsiflexion with Knee Extended 8 Plantarflexion 45 Inversion 35 Eversion 10 Comments Denies symptoms PT-OP-L Special Tests Start: 01/15/23 09:16 Freq: Status: Active Protocol: Document 01/15/23 09:19 AB (Rec: 01/15/23 16:21 AB [id number]) Special Tests Foot/Ankle Special Tests Wall ankle DF mobility test Test Results R: 2.75 from wall; L: 1.5 from wall Comments Pt is in half kneeling position with foot about a horizontal hand away from wall . Pt tries to touch knee to wall without lifting heel [place] Test Results negative bilaterally PT-OP-M Strength Start: 01/15/23 09:16 Freq: Status: Active Protocol: Document 01/15/23 09:19 AB (Rec: 01/15/23 16:21 AB [id number]) Ankle/Foot Strength Ankle and Foot Manual Muscle Testing Right Dorsiflexion (L4) 5 Normal Plantarflexion (S1) 5 Normal Comments Able to perform 10 heel raises with knee ext and knee flex, but pt reports feeling a difference compared to right side Left Dorsiflexion (L4) 5 Normal Plantarflexion (S1) 5 Normal Comments Able to perform 10 heel raises with knee ext and knee flex PT-OP-Q Treatments Start: 01/15/23 09:16 Freq: Status: Active Protocol: Document 02/11/23 09:53 NM (Rec: 02/11/23 10:37 NM [id number]) Cardio Equipment Bicycle (Upright) Duration (Minutes) 4 Resistance 5 Other warm up Gym Equipment Shuttle Recovery soleus raises Details 1. soleus raises, 2. gastroc raises Resistance 75# (3 navy) Shuttle Recovery Platform Stable Reps/Time 1x15 ea Plyometric Details B mini-jumps about 2 with soft B landing to progress loading Resistance 12# Shuttle Recovery Platform Stable Reps/Time 1x15 Therapeutic Exercises Standing Exercises Lunges Standing Exercise Name 1. reverse, 2. foward Side bilateral Resistance body weight Reps/Minutes 2x25' ea Comments cues for bigger step, Elevated heel raises Standing Exercise Name heel raise>calf stretch Side bilateral Resistance body weight Equipment Used 4 stairs Reps/Minutes 2x15x5 1st set gastroc, 2nd soleus Comments gentle stretch, increasing ROM with ea Neuro Re-Education Treatment Balance Activities Single Leg stance Details performed bilaterally in // bars Surface unstable Equipment foam pad Comments 1. Static balance on foam, 2x30 ea 2. Dynamic balance on foam with UE twisting while holding a prydeinig ball, 2x30 ea Demos min-mod sway able to self-correct with min use of UE or contralateral LE to stabilize. Single Leg Squat Surface stable Equipment cones Reps/Duration x8 Comments Y attempted; unable to maintain balance 1. fwd cone taps with L foot, R SL squat 2. lateral/back cone taps with L foot, R SL squat Mod instability, able to catch LOB. Demos knee valgus with squat PT-OP-T Assessment and Plan Start: 01/15/23 09:16 Freq: Status: Active Protocol: Document 02/11/23 09:53 NM (Rec: 02/11/23 10:37 NM [id number]) Physical Therapy Assessment Goals 5 Impairment Return to activity Short Term Goal (STG) Pt to report being able to return to recreational walking with minimal to no symptoms to show improving level of function. STG Duration 4 Jail Goal (LTG) Pt to report being able to return to all recreational activities with no symptoms to show return to PLOF. LTG Duration 6 Four Impairment Patient Questionnaire Short Term Goal (STG) LEFS score and FAAM score to improve by 10 points or better to show improving subjective report of symptoms for an improved QOL. STG Duration 4 Jail Goal (LTG) LEFS score and FAAM score to improve by 15 points or better to show improving subjective report of symptoms for an improved QOL. LTG Duration 6 Three Impairment Squat mechanics Short Term Goal (STG) Pt to be able to perform squat without weightshift to 120 degress of knee flexion in order to show improving squat mechanics. STG Duration 4 Asbestos Cement Sheet Supervisor Goal (LTG) Pt to be able to perform squat without weightshift to 100 degress of knee flexion in order to show improving squat mechanics. LTG Duration 6 Two Impairment Ankle DF Short Term Goal (STG) Pt's wall ankle DF mobility test to improve to 2 inches or less to show improving ankle mobility to show improving soft tissue and joint mobility to improve squat mechanics and gait mechanics. STG Duration 4 Asbestos Cement Sheet Supervisor Goal (LTG) Pt's wall ankle DF mobility test to improve to 1.5 inches or less to show improving ankle mobility to show improving soft tissue and joint mobility to improve squat mechanics and gait mechanics. LTG Duration 6 One Impairment Ankle DF Short Term Goal (STG) Pt's ankle DF AROM to improve to 10 degrees or better to show improving soft tissue and joint mobility to improve squat mechanics and gait mechanics. STG Duration 4 Jail Goal (LTG) Pt's ankle DF AROM to improve to 15 degrees or better to show improving soft tissue and joint mobility to improve squat mechanics and gait mechanics. LTG Duration 6 Assessment Summary Assessment Pt tolerated treatment well and is making improvements in single leg stability since last session. Pt still demos mild instability when placed on an unstable surface, but is able to maintain single leg balance for 15 sec before needing to stabilize with other LE or UE. Continued with heavier resistance during soleus raises, added gastroc raises and deep squats on shuttle recovery for further strengthening and ankle mobility. Initiated more dynamic single leg activities today including a multidirection single leg squat; pt able to perform squat (with knee valugs) and has difficulty maintaining balance while reach with contralateral LE for the cone. HEP issued with SLS on pillow, single leg squat, and reverse lunge. Pt has mentioned that he would like to possibly discharge soon, which will be discussed further after PN next visit. Pt would benefit from skilled PT to maximize ankle mobility, continue with progressive loading of the Achilles, and promote dynamic stability in order to return to PLOF. Physical Therapy Plan Next Visit Focus/Plan Next Note Type Progress Note Next Visit Plan Initiate more single leg strengthening of Achilles tendon on shuttle. Continue with dynamic single leg balance and single leg strengthening.
--- NOTE | 2023-02-18 10:28 | PT.OTN ---
Current Diagnoses Unspecified disorder of synovium and tendon, unspecified ankle and foot (02/18/23) Achilles tendinitis, unspecified leg (02/18/23) Strain of right Achilles tendon, subsequent encounter (02/18/23) Strain of unspecified Achilles tendon, initial encounter (02/18/23) Physical Therapy Treatment Note PT-OP-A Visit Information Start: 01/15/23 09:16 Freq: Status: Active Protocol: Document 02/18/23 08:20 NM (Rec: 02/18/23 09:07 NM [id number]) Out-Patient Physical Therapy Visit Information Visit Information Visit Type Treatment Note Visit Note PN today Visit Start Time 08:15 Visit Stop Time 08:58 Total Visit Minutes 43 Visit Number 6 Evaluation Information Evaluation Date 01/15/23 PT-OP-B Current Condition Start: 01/15/23 09:16 Freq: Status: Active Protocol: Document 01/15/23 09:19 AB (Rec: 01/15/23 16:21 AB [id number]) Current Condition History of Current Condition Onset Date 11/28/22 History of Current Condition Pt started running and felt a lot pain in his calf, like some hit him with a baseball bat. Went to ER was diagnosed with achilles tendon tear. He was given muscle relaxers and was splinted and given crtuches. He was on vacation at the time, so he was unable to see an ortho or go to PT. Since then, he no longer uses any pain meds, but does not feel like he is back to 100%. He doesn't has difficulty with ADLs or IADLs, but doesn't feel like he can participate in recreational activities such as hiking, etc. He was referred by PCP. Treatment Goals Patient/Caregiver Goals To return to recreational activities. PT-OP-C Subjective Start: 01/15/23 09:16 Freq: Status: Active Protocol: Document 02/18/23 08:20 NM (Rec: 02/18/23 09:07 NM [id number]) OP-PT Subjective Patient Comments Patient Comments Pt reports that his ankle is sore after crabbing on a boat yesterday for 14 hours. He has no pain, just sore from the rocking of the boat. Pt is wanting to discharge after next session because he feels he has made good progress. PT-OP-E Functional Tests Start: 01/15/23 09:16 Freq: Status: Active Protocol: Document 01/15/23 09:19 AB (Rec: 01/15/23 16:21 AB [id number]) Functional Tests Squat Test Comments weightshifts to left side PT-OP-J Posture/Palpation/Skin Start: 01/15/23 09:16 Freq: Status: Active Protocol: Document 01/15/23 09:19 AB (Rec: 01/15/23 16:21 AB [id number]) Palpation Assessment Location right achilles Palpation Location right achilles Palpation Findings None/Normal Palpation Details Pt reports very mild tnederness at distal portion of calf muscles , however mild increased thickness noted over mid portion of tendon on medial side PT-OP-K Range of Motion Start: 01/15/23 09:16 Freq: Status: Active Protocol: Document 01/15/23 09:19 AB (Rec: 01/15/23 16:21 AB [id number]) Ankle and Foot Goniometric Range of Motion Ankle and Foot Right Active Ankle/Foot ROM WFL Yes Testing Position Sitting Dorsiflexion with Knee Flexed 5 Plantarflexion 45 Inversion 35 Eversion 15 Left Active Ankle/Foot ROM WFL Yes Testing Position Sitting Dorsiflexion with Knee Extended 8 Plantarflexion 45 Inversion 35 Eversion 10 Comments Denies symptoms PT-OP-L Special Tests Start: 01/15/23 09:16 Freq: Status: Active Protocol: Document 01/15/23 09:19 AB (Rec: 01/15/23 16:21 AB [id number]) Special Tests Foot/Ankle Special Tests Wall ankle DF mobility test Test Results R: 2.75 from wall; L: 1.5 from wall Comments Pt is in half kneeling position with foot about a horizontal hand away from wall . Pt tries to touch knee to wall without lifting heel [place] Test Results negative bilaterally PT-OP-M Strength Start: 01/15/23 09:16 Freq: Status: Active Protocol: Document 01/15/23 09:19 AB (Rec: 01/15/23 16:21 AB [id number]) Ankle/Foot Strength Ankle and Foot Manual Muscle Testing Right Dorsiflexion (L4) 5 Normal Plantarflexion (S1) 5 Normal Comments Able to perform 10 heel raises with knee ext and knee flex, but pt reports feeling a difference compared to right side Left Dorsiflexion (L4) 5 Normal Plantarflexion (S1) 5 Normal Comments Able to perform 10 heel raises with knee ext and knee flex PT-OP-Q Treatments Start: 01/15/23 09:16 Freq: Status: Active Protocol: Document 02/18/23 08:20 NM (Rec: 02/18/23 09:07 NM [id number]) Cardio Equipment Elliptical Duration (Minutes) 6 Resistance 3 Other beginning of session for warm up/for ankle mobility Therapeutic Exercises Standing Exercises Triple Ext Calf Raise Standing Exercise Name lunge > Toe ext, Gastroc ext, hip ext Side right Resistance body weight Equipment Used 2 fingers on wall for balance prn Reps/Minutes 1x10x2 isometric at top of ROM Comments cues for execution rojelio heel raise; mod sway, needs to wall for stab G/S raises single leg Standing Exercise Name 1. gastroc raises, 2. soleus raises Side right Resistance body weight Equipment Used 2 finger support on wall for balance Reps/Minutes 1x10x5 isometric at end range Comments cues for sagittal motion only, full ROM Gastroc and soleus stretch Side right Equipment Used Jose Reps/Minutes 2x30 ea Comments toward end of session after calf raises Neuro Re-Education Treatment Balance Activities Box drops Surface stable Equipment 12box Reps/Duration 8 Comments cues for soft landing, B landing, dropping off box. Difficult for pt, especially coordinating stepping off bilaterally and landing bilaterally. Pt keeps attempting to land on LLE then adding RLE into landing. Will re-attempt next session or similar activity Single leg RDL Details with 5# db in hand, next to wall Surface stable Equipment wall with 2 finger support occasionally Reps/Duration 2x10 Comments Cues for hip hinge, slight knee bend, ext spine. Pt demos mild sway but able to self correct majority of time. Reports some tightness in R Achilles Single Leg Squat Surface stable Reps/Duration x5 Comments Y pattern. Able to maintain better SL balance today, but demos difficulty with SL squat + coordinated reach PT-OP-T Assessment and Plan Start: 01/15/23 09:16 Freq: Status: Active Protocol: Document 02/18/23 08:20 NM (Rec: 02/18/23 09:07 NM [id number]) Physical Therapy Assessment Rehab Potential Rehabilitation Potential Good Evaluation Complexity Number of Personal Factors/Comorbidities 1-2 Number of Body Systems Impaired 1-2 Clinical Presentation at Evaluation Stable Impairments Impairments Activity Tolerance,Balance, Functional Mobility,Gait,Pain, Posture,ROM,Soft Tissue Mobility,Strength Goals 5 Impairment Return to activity Short Term Goal (STG) Pt to report being able to return to recreational walking with minimal to no symptoms to show improving level of function. MET (02/18/23) STG Duration 4 Alf Goal (LTG) Pt to report being able to return to all recreational activities with no symptoms to show return to PLOF. MET (02/18/23): Pt reports that he can perform all recreational activities with no symptoms LTG Duration 6 Four Impairment Patient Questionnaire Short Term Goal (STG) LEFS score and FAAM score to improve by 10 points or better to show improving subjective report of symptoms for an improved QOL. STG Duration 4 Supervisor Public Message Service Goal (LTG) LEFS score and FAAM score to improve by 15 points or better to show improving subjective report of symptoms for an improved QOL. MET (02/18/23): New FAAM 79/84 (increased by 17 points), LEFS 64/80 (increased 11) LTG Duration 6 Three Impairment Squat mechanics Short Term Goal (STG) Pt to be able to perform squat without weightshift to 120 degress of knee flexion in order to show improving squat mechanics. STG Duration 4 Supervisor Public Message Service Goal (LTG) Pt to be able to perform squat without weightshift to 100 degress of knee flexion in order to show improving squat mechanics. MET (02/18/23): able to perform squat with equal WB to 100 deg of knee flexion before heels elevate LTG Duration 6 Two Impairment Ankle DF Short Term Goal (STG) Pt's wall ankle DF mobility test to improve to 2 inches or less to show improving ankle mobility to show improving soft tissue and joint mobility to improve squat mechanics and gait mechanics. MET 02/18/23 STG Duration 4 Alf Goal (LTG) Pt's wall ankle DF mobility test to improve to 1.5 inches or less to show improving ankle mobility to show improving soft tissue and joint mobility to improve squat mechanics and gait mechanics. PARTIALLY MET (02/18/23): R ankle DF mobility test 2 active, 1.75 passively LTG Duration 6 One Impairment Ankle DF Short Term Goal (STG) Pt's ankle DF AROM to improve to 10 degrees or better to show improving soft tissue and joint mobility to improve squat mechanics and gait mechanics. MET 02/18/23 STG Duration 4 Alf Goal (LTG) Pt's ankle DF AROM to improve to 15 degrees or better to show improving soft tissue and joint mobility to improve squat mechanics and gait mechanics. NOT MET (02/18/23): Ankle DF AROM 10 deg LTG Duration 6 Assessment Summary Assessment Pt tolerated treatment well. Emphasis today on dynamic plantarflexion strengthening with some added plyometrics. Pt demos improved single leg balance overall but still demos mild-mod sway when combined with functional dynamic activities (squat, RDL , triple ext lunge). Initiated box drops to address higher impacts on Achilles against gravity; pt reports no pain in his Achilles but he does have difficulty with correct execution and soft landings to protect knees/hips. Will address in next session. Pt is wanting to discharge after next session because he feels like he has met his max here in PT; will issue an HEP at next session. Pt would benefit from skilled PT to address impairments in balance, end range mobility, and single leg stability/plyometrics to return to PLOF. Physical Therapy Plan Frequency and Duration Frequency of Treatment 2x/Week Duration of treatment (weeks) 6 Plan of Care Start Date 01/15/23 Plan of Care End Date 02/26/23 Therapeutic Interventions Therapeutic Interventions Balance Training,Coordination Training,Gait Training,Home Exercise Program,Joint Mobilizations,Manual Therapy, Neuromuscular Re-education, Orthotic/Prosthetic Management ,Patient/Caregiver Education, Self-Care/Home Management,Soft Tissue Mobilization,Taping, Therapeutic Activities, Therapeutic Exercises Modalities Cold Pack/Ice Massage,Electric Stimulation,Hot Packs Next Visit Focus/Plan Next Note Type Discharge Summary Next Visit Plan Initiate more single leg strengthening of Achilles tendon on shuttle. Continue with dynamic single leg balance and single leg strengthening. HEP for discharge: strengthening, balance, mobility
--- NOTE | 2023-02-18 11:07 | PT.OPPN ---
Current Diagnoses Unspecified disorder of synovium and tendon, unspecified ankle and foot (02/18/23) Achilles tendinitis, unspecified leg (02/18/23) Strain of right Achilles tendon, subsequent encounter (02/18/23) Strain of unspecified Achilles tendon, initial encounter (02/18/23) Physical Therapy Progress Note PT-OP-A Visit Information Start: 01/15/23 09:16 Freq: Status: Active Protocol: Document 02/18/23 08:20 NM (Rec: 02/18/23 11:06 NM [id number]) Out-Patient Physical Therapy Visit Information Visit Information Visit Type Progress Note Visit Start Time 08:15 Visit Stop Time 08:58 Total Visit Minutes 43 Visit Number 6 Evaluation Information Evaluation Date 01/15/23 PT-OP-B Current Condition Start: 01/15/23 09:16 Freq: Status: Active Protocol: Document 01/15/23 09:19 AB (Rec: 01/15/23 16:21 AB [id number]) Current Condition History of Current Condition Onset Date 11/28/22 History of Current Condition Pt started running and felt a lot pain in his calf, like some hit him with a baseball bat. Went to ER was diagnosed with achilles tendon tear. He was given muscle relaxers and was splinted and given crtuches. He was on vacation at the time, so he was unable to see an ortho or go to PT. Since then, he no longer uses any pain meds, but does not feel like he is back to 100%. He doesn't has difficulty with ADLs or IADLs, but doesn't feel like he can participate in recreational activities such as hiking, etc. He was referred by PCP. Treatment Goals Patient/Caregiver Goals To return to recreational activities. PT-OP-C Subjective Start: 01/15/23 09:16 Freq: Status: Active Protocol: Document 02/18/23 08:20 NM (Rec: 02/18/23 11:06 NM [id number]) OP-PT Subjective Patient Comments Patient Comments Pt reports that his ankle is sore after crabbing on a boat yesterday for 14 hours. He has no pain, just sore from the rocking of the boat. Pt is wanting to discharge after next session because he feels he has made good progress. He reports that he can perform all of his ADLs and recreational activities without limitation. He feels that he can do an HEP and still benefit without having to drive to PT, especially as the holidays approach. Patient Reported Progress Improving Patient Questionnaires Foot & Ankle Ability Measure- ADL and Sports FAAM-ADL Score 79/84 FAAM-ADL Impairment 1 to 19% Impaired (Score 67-83 ) FAAM-Sport Score 9/12 Lower Extremity Functional Scale LEFS Score 64/80 LEFS Impairment 1 to 19% Impaired (Score 63-79 ) PT-OP-E Functional Tests Start: 01/15/23 09:16 Freq: Status: Active Protocol: Document 01/15/23 09:19 AB (Rec: 01/15/23 16:21 AB [id number]) Functional Tests Squat Test Comments weightshifts to left side PT-OP-J Posture/Palpation/Skin Start: 01/15/23 09:16 Freq: Status: Active Protocol: Document 01/15/23 09:19 AB (Rec: 01/15/23 16:21 AB [id number]) Palpation Assessment Location right achilles Palpation Location right achilles Palpation Findings None/Normal Palpation Details Pt reports very mild tnederness at distal portion of calf muscles , however mild increased thickness noted over mid portion of tendon on medial side PT-OP-K Range of Motion Start: 01/15/23 09:16 Freq: Status: Active Protocol: Document 01/15/23 09:19 AB (Rec: 01/15/23 16:21 AB [id number]) Ankle and Foot Goniometric Range of Motion Ankle and Foot Measured in Degrees Right Active Ankle/Foot ROM WFL Yes Testing Position Sitting Dorsiflexion with Knee Flexed 5 Plantarflexion 45 Inversion 35 Eversion 15 Left Active Ankle/Foot ROM WFL Yes Testing Position Sitting Dorsiflexion with Knee Extended 8 Plantarflexion 45 Inversion 35 Eversion 10 Comments Denies symptoms PT-OP-L Special Tests Start: 01/15/23 09:16 Freq: Status: Active Protocol: Document 01/15/23 09:19 AB (Rec: 01/15/23 16:21 AB [id number]) Special Tests Foot/Ankle Special Tests Wall ankle DF mobility test Test Results R: 2.75 from wall; L: 1.5 from wall Comments Pt is in half kneeling position with foot about a horizontal hand away from wall . Pt tries to touch knee to wall without lifting heel [place] Test Results negative bilaterally PT-OP-M Strength Start: 01/15/23 09:16 Freq: Status: Active Protocol: Document 01/15/23 09:19 AB (Rec: 01/15/23 16:21 AB [id number]) Ankle/Foot Strength Ankle and Foot Manual Muscle Testing Right Dorsiflexion (L4) 5 Normal Plantarflexion (S1) 5 Normal Comments Able to perform 10 heel raises with knee ext and knee flex, but pt reports feeling a difference compared to right side Left Dorsiflexion (L4) 5 Normal Plantarflexion (S1) 5 Normal Comments Able to perform 10 heel raises with knee ext and knee flex PT-OP-T Assessment and Plan Start: 01/15/23 09:16 Freq: Status: Active Protocol: Document 02/18/23 08:20 NM (Rec: 02/18/23 11:06 NM [id number]) Physical Therapy Assessment Rehab Potential Rehabilitation Potential Good Evaluation Complexity Number of Personal Factors/Comorbidities 1-2 Number of Body Systems Impaired 1-2 Clinical Presentation at Evaluation Stable Impairments Impairments Activity Tolerance,Balance, Functional Mobility,Gait,Pain, Posture,ROM,Soft Tissue Mobility,Strength Goals 5 Impairment Return to activity Short Term Goal (STG) Pt to report being able to return to recreational walking with minimal to no symptoms to show improving level of function. MET (02/18/23) STG Duration 4 Land Acquisition Manager Goal (LTG) Pt to report being able to return to all recreational activities with no symptoms to show return to PLOF. MET (02/18/23): Pt reports that he can perform all recreational activities with no symptoms LTG Duration 6 Four Impairment Patient Questionnaire Short Term Goal (STG) LEFS score and FAAM score to improve by 10 points or better to show improving subjective report of symptoms for an improved QOL. STG Duration 4 Land Acquisition Manager Goal (LTG) LEFS score and FAAM score to improve by 15 points or better to show improving subjective report of symptoms for an improved QOL. MET (02/18/23): New FAAM 79/84 (increased by 17 points), LEFS 64/80 (increased 11) LTG Duration 6 Three Impairment Squat mechanics Short Term Goal (STG) Pt to be able to perform squat without weightshift to 120 degress of knee flexion in order to show improving squat mechanics. STG Duration 4 Land Acquisition Manager Goal (LTG) Pt to be able to perform squat without weightshift to 100 degress of knee flexion in order to show improving squat mechanics. MET (02/18/23): able to perform squat with equal WB to 100 deg of knee flexion before heels elevate LTG Duration 6 Two Impairment Ankle DF Short Term Goal (STG) Pt's wall ankle DF mobility test to improve to 2 inches or less to show improving ankle mobility to show improving soft tissue and joint mobility to improve squat mechanics and gait mechanics. MET 02/18/23 STG Duration 4 Residential Goal (LTG) Pt's wall ankle DF mobility test to improve to 1.5 inches or less to show improving ankle mobility to show improving soft tissue and joint mobility to improve squat mechanics and gait mechanics. PARTIALLY MET (02/18/23): R ankle DF mobility test 2 active, 1.75 passively LTG Duration 6 One Impairment Ankle DF Short Term Goal (STG) Pt's ankle DF AROM to improve to 10 degrees or better to show improving soft tissue and joint mobility to improve squat mechanics and gait mechanics. MET 02/18/23 STG Duration 4 Residential Goal (LTG) Pt's ankle DF AROM to improve to 15 degrees or better to show improving soft tissue and joint mobility to improve squat mechanics and gait mechanics. NOT MET (02/18/23): Ankle DF AROM 10 deg LTG Duration 6 Progress Towards Goals Progress Towards Goals Progressing Toward Goals,Goals Met Assessment Summary Assessment Pt tolerates treatment well since initial evaluation. Pt has met 3/5 goals with another partially met and 1 unmet. Pt demos improved R ankle ROM with minor limitations in ankle dorsiflexion (10 deg). He is able to perform >10 single leg heel raises with knee ext and flexed on his RLE , demonstrating 5/5 functional strength. His single limb stability and strength has improved since IE. Pt is able to perform SLS on unstable surfaces for at least 30 sec without LOB, in addition to maintaining balance during higher level functional activties including single leg squats and lunges. He also reports improvement in overall activity tolerance and his ability to participate in ADLs /recreational activities (97% PLOF). Pt would like to discharge after next visit when POC ends because he feels like he is back to PLOF and will not get more benefit from PT. PT discussed with pt the possibility of extending POC for a few more weeks to address higher level strengthening, higher impact plyometics and balance training; however, pt states that he was not interested in continuing and would like to continue to strengthen at home instead. Pt would benefit from skilled PT to address HEP and to continue to improve higher impact single limb balance/strength to maximize return to PLOF. Physical Therapy Plan Frequency and Duration Frequency of Treatment 2x/Week Duration of treatment (weeks) 6 Plan of Care Start Date 01/15/23 Plan of Care End Date 02/26/23 Therapeutic Interventions Therapeutic Interventions Balance Training,Coordination Training,Gait Training,Home Exercise Program,Joint Mobilizations,Manual Therapy, Neuromuscular Re-education, Orthotic/Prosthetic Management ,Patient/Caregiver Education, Self-Care/Home Management,Soft Tissue Mobilization,Taping, Therapeutic Activities, Therapeutic Exercises Modalities Cold Pack/Ice Massage,Electric Stimulation,Hot Packs Next Visit Focus/Plan Next Note Type Discharge Summary Next Visit Plan Initiate more single leg strengthening of Achilles tendon on shuttle. Continue with dynamic single leg balance and single leg strengthening. HEP for discharge: strengthening, balance, mobility
--- NOTE | 2023-02-21 12:52 | PT.OTN ---
Current Diagnoses Unspecified disorder of synovium and tendon, unspecified ankle and foot (02/21/23) Achilles tendinitis, unspecified leg (02/21/23) Strain of right Achilles tendon, subsequent encounter (02/21/23) Strain of unspecified Achilles tendon, initial encounter (02/21/23) Physical Therapy Treatment Note PT-OP-A Visit Information Start: 01/15/23 09:16 Freq: Status: Active Protocol: Document 02/21/23 08:30 NM (Rec: 02/21/23 09:30 NM [id number]) Out-Patient Physical Therapy Visit Information Visit Information Visit Type Treatment Note Visit Note D/c today Visit Start Time 08:15 Visit Stop Time 09:00 Total Visit Minutes 45 Visit Number 7 Evaluation Information Evaluation Date 01/15/23 PT-OP-B Current Condition Start: 01/15/23 09:16 Freq: Status: Active Protocol: Document 01/15/23 09:19 AB (Rec: 01/15/23 16:21 AB [id number]) Current Condition History of Current Condition Onset Date 11/28/22 History of Current Condition Pt started running and felt a lot pain in his calf, like some hit him with a baseball bat. Went to ER was diagnosed with achilles tendon tear. He was given muscle relaxers and was splinted and given crtuches. He was on vacation at the time, so he was unable to see an ortho or go to PT. Since then, he no longer uses any pain meds, but does not feel like he is back to 100%. He doesn't has difficulty with ADLs or IADLs, but doesn't feel like he can participate in recreational activities such as hiking, etc. He was referred by PCP. Treatment Goals Patient/Caregiver Goals To return to recreational activities. PT-OP-C Subjective Start: 01/15/23 09:16 Freq: Status: Active Protocol: Document 02/21/23 08:30 NM (Rec: 02/21/23 09:30 NM [id number]) OP-PT Subjective Patient Comments Patient Comments Pt reports that his legs are sore after last session but denies pain. He reports that he can perform all of his ADLs and recreational activities without limitation. He wants to discharge from PT today. Patient Reported Progress Improving PT-OP-E Functional Tests Start: 01/15/23 09:16 Freq: Status: Active Protocol: Document 01/15/23 09:19 AB (Rec: 01/15/23 16:21 AB [id number]) Functional Tests Squat Test Comments weightshifts to left side PT-OP-J Posture/Palpation/Skin Start: 01/15/23 09:16 Freq: Status: Active Protocol: Document 01/15/23 09:19 AB (Rec: 01/15/23 16:21 AB [id number]) Palpation Assessment Location right achilles Palpation Location right achilles Palpation Findings None/Normal Palpation Details Pt reports very mild tnederness at distal portion of calf muscles , however mild increased thickness noted over mid portion of tendon on medial side PT-OP-K Range of Motion Start: 01/15/23 09:16 Freq: Status: Active Protocol: Document 01/15/23 09:19 AB (Rec: 01/15/23 16:21 AB [id number]) Ankle and Foot Goniometric Range of Motion Ankle and Foot Right Active Ankle/Foot ROM WFL Yes Testing Position Sitting Dorsiflexion with Knee Flexed 5 Plantarflexion 45 Inversion 35 Eversion 15 Left Active Ankle/Foot ROM WFL Yes Testing Position Sitting Dorsiflexion with Knee Extended 8 Plantarflexion 45 Inversion 35 Eversion 10 Comments Denies symptoms PT-OP-L Special Tests Start: 01/15/23 09:16 Freq: Status: Active Protocol: Document 01/15/23 09:19 AB (Rec: 01/15/23 16:21 AB [id number]) Special Tests Foot/Ankle Special Tests Wall ankle DF mobility test Test Results R: 2.75 from wall; L: 1.5 from wall Comments Pt is in half kneeling position with foot about a horizontal hand away from wall . Pt tries to touch knee to wall without lifting heel [place] Test Results negative bilaterally PT-OP-M Strength Start: 01/15/23 09:16 Freq: Status: Active Protocol: Document 01/15/23 09:19 AB (Rec: 01/15/23 16:21 AB [id number]) Ankle/Foot Strength Ankle and Foot Manual Muscle Testing Right Dorsiflexion (L4) 5 Normal Plantarflexion (S1) 5 Normal Comments Able to perform 10 heel raises with knee ext and knee flex, but pt reports feeling a difference compared to right side Left Dorsiflexion (L4) 5 Normal Plantarflexion (S1) 5 Normal Comments Able to perform 10 heel raises with knee ext and knee flex PT-OP-Q Treatments Start: 01/15/23 09:16 Freq: Status: Active Protocol: Document 02/21/23 08:30 NM (Rec: 02/21/23 09:30 NM [id number]) Cardio Equipment Bicycle (Upright) Duration (Minutes) 3 Resistance 0 Other RPM as fast as possible; warm up Therapeutic Exercises Standing Exercises G/S raises single leg Standing Exercise Name 1. gastroc raises, 2. soleus raises Side right Resistance body weight Equipment Used 2 finger support for balance Reps/Minutes 2x15x2 at end range Comments HEP Gastroc and soleus stretch Side right Equipment Used Jose Reps/Minutes 2x30 ea Comments HEP Lunges Standing Exercise Name Foward > reverse Side bilateral Resistance body weight Reps/Minutes 2x5x5 pause at bottom of movement Comments cues for slower motion Neuro Re-Education Treatment Balance Activities Bosu single leg step up Details RLE step up > LLE hip flex Surface unstable Equipment bosu blue side up Reps/Duration 2x10x2 Comments With hip flex once step up on top of bosu (~ runner's pose) for additional challenge to balance. UE use (2 fingers) for stability prn once in top of range, but pt able to control motion majority of reps. Cues to drive L knee up, step with RLE in center of bosu for better balance Bosu squats Surface unstable Equipment blue side of bosu Reps/Duration 2x15x5 pause at bottom of range Comments Ue support for balance prn Pt cued for post weight shift (push bottom back) during downward translation to allow for better control during squat and to keep trunk from excess fwd flexion. Demos mild sway but able to control and maintain balance during motion Single Leg stance Surface unstable Equipment foam airex Reps/Duration 4x30 ea LE Comments 1. static stance with cognitive activities (visual scanning/answering questions) 2. dynamic balance moving small ball multidirectionally at PT's direction Self-Care/Home Management Treatment Education Patient Education Home Exercise Program Other Education Issued HEP: single leg heel raise gastroc/soleus, gastroc stretch, soleus stretch, Ankle DF mobilization, fwd lunge, lateral lunge, squat + single leg squat. Pt and PT discussed in depth (~8 min) about continuing stretching and strengthening R ankle at home after discharge to maintain gains made during POC. Exercises provided target both mobility and strengthening the ankles/knees/hips ( unilaterally and bilaterally). PT-OP-T Assessment and Plan Start: 01/15/23 09:16 Freq: Status: Active Protocol: Document 02/21/23 08:30 NM (Rec: 02/21/23 09:30 NM [id number]) Physical Therapy Assessment Rehab Potential Rehabilitation Potential Good Evaluation Complexity Number of Personal Factors/Comorbidities 1-2 Number of Body Systems Impaired 1-2 Clinical Presentation at Evaluation Stable Impairments Impairments Activity Tolerance,Balance, Functional Mobility,Gait,Pain, Posture,ROM,Soft Tissue Mobility,Strength Goals 5 Impairment Return to activity Short Term Goal (STG) Pt to report being able to return to recreational walking with minimal to no symptoms to show improving level of function. MET (02/18/23) STG Duration 4 Residential Goal (LTG) Pt to report being able to return to all recreational activities with no symptoms to show return to PLOF. MET (02/18/23): Pt reports that he can perform all recreational activities with no symptoms LTG Duration 6 Four Impairment Patient Questionnaire Short Term Goal (STG) LEFS score and FAAM score to improve by 10 points or better to show improving subjective report of symptoms for an improved QOL. STG Duration 4 Residential Goal (LTG) LEFS score and FAAM score to improve by 15 points or better to show improving subjective report of symptoms for an improved QOL. MET (02/18/23): New FAAM 79/84 (increased by 17 points), LEFS 64/80 (increased 11) LTG Duration 6 Three Impairment Squat mechanics Short Term Goal (STG) Pt to be able to perform squat without weightshift to 120 degress of knee flexion in order to show improving squat mechanics. STG Duration 4 Residential Goal (LTG) Pt to be able to perform squat without weightshift to 100 degress of knee flexion in order to show improving squat mechanics. MET (02/18/23): able to perform squat with equal WB to 100 deg of knee flexion before heels elevate LTG Duration 6 Two Impairment Ankle DF Short Term Goal (STG) Pt's wall ankle DF mobility test to improve to 2 inches or less to show improving ankle mobility to show improving soft tissue and joint mobility to improve squat mechanics and gait mechanics. MET 02/18/23 STG Duration 4 Residential Goal (LTG) Pt's wall ankle DF mobility test to improve to 1.5 inches or less to show improving ankle mobility to show improving soft tissue and joint mobility to improve squat mechanics and gait mechanics. MET (02/21/23): R Ankle DF with knee 1 from wall LTG Duration 6 One Impairment Ankle DF Short Term Goal (STG) Pt's ankle DF AROM to improve to 10 degrees or better to show improving soft tissue and joint mobility to improve squat mechanics and gait mechanics. MET 02/18/23 STG Duration 4 Drier And Evaporator Operator Goal (LTG) Pt's ankle DF AROM to improve to 15 degrees or better to show improving soft tissue and joint mobility to improve squat mechanics and gait mechanics. NOT MET (02/21/23): Ankle DF 11 deg NOT MET (02/18/23): Ankle DF AROM 10 deg LTG Duration 6 Progress Towards Goals Progress Towards Goals Progressing Toward Goals,Goals Met Progress Comments Has met all goals except 1 ( partially met for Ankle DF ROM ) Assessment Summary Assessment Pt tolerated treatment well today. Tmt focus on RLE strengthening using functional , multi-directional motions and dynamic balance activities . He is able to perform single limb stance on unstable surfaces, multi-planar movements on stable/unstable surfaces, in addition to higher level static & dynamic balance activities on both stable/unstable surfaces with no or minimal LOB. Pt is able to perform weight shifts and utilize good ankle strategy to correct and maintain his TERESITA; he is not limited by RLE mobility or strength. Pt demos overall improvments R ankle strength and mobility since IE . He has met 4/5 goals for ankle strength, mobility, and function. The last goal is partially met for ankle DF ROM , but his R ankle dorsiflexion ROM is comparable to his L ankle and improved since IE. He is able to perform >15 single limb heel raises bilaterally. Pt reports that he has no pain with any activity, and he is able to perform all activities/ADLs without restriction. Pt issued HEP with mobility and strengthening exercises for continuity of care and to promote independence. PT and pt discussed discharging today as pt has met most goals, is nearing end of POC, and does not have any more appointments scheduled; pt is agreeable to discharge. At this time, pt is safe to discharge from PT and was instructed to follow up with his PCP for a new referral if there are any changes. Physical Therapy Plan Frequency and Duration Frequency of Treatment discharge from PT Duration of treatment (weeks) 6 Plan of Care Start Date 01/15/23 Plan of Care End Date 02/26/23 Therapeutic Interventions Therapeutic Interventions Balance Training,Coordination Training,Gait Training,Home Exercise Program,Joint Mobilizations,Manual Therapy, Neuromuscular Re-education, Orthotic/Prosthetic Management ,Patient/Caregiver Education, Self-Care/Home Management,Soft Tissue Mobilization,Taping, Therapeutic Activities, Therapeutic Exercises Modalities Cold Pack/Ice Massage,Electric Stimulation,Hot Packs Discharge Physical Therapy Discharge Reasons Goals Met Discharge Comments Pt has met 4/5 goals; his partially met 5th goal is comparable ROM to LLE. Issued HEP for continuity and maintenance Next Visit Focus/Plan Next Note Type Discharge Summary Next Visit Plan Issued HEP; discharged from PT services for this POC
--- NOTE | 2023-02-21 13:00 | PT.OPDS ---
Current Diagnoses Unspecified disorder of synovium and tendon, unspecified ankle and foot (02/21/23) Achilles tendinitis, unspecified leg (02/21/23) Strain of right Achilles tendon, subsequent encounter (02/21/23) Strain of unspecified Achilles tendon, initial encounter (02/21/23) Visit Care Team Role Provider Type Taylor Sarabia MD Attending Provider Physician Family Provider Primary Care Provider Referring Provider Specialty: Family Practice Obstetrics Address: [address] [place] [address], [facility] Email: [email or web address] Visit Number Visit Number 7 Discharge Summary PT-OP-B Current Condition Start: 01/15/23 09:16 Freq: Status: Active Protocol: Document 01/15/23 09:19 AB (Rec: 01/15/23 16:21 AB [id number]) Current Condition History of Current Condition Onset Date 11/28/22 History of Current Condition Pt started running and felt a lot pain in his calf, like some hit him with a baseball bat. Went to ER was diagnosed with achilles tendon tear. He was given muscle relaxers and was splinted and given crtuches. He was on vacation at the time, so he was unable to see an ortho or go to PT. Since then, he no longer uses any pain meds, but does not feel like he is back to 100%. He doesn't has difficulty with ADLs or IADLs, but doesn't feel like he can participate in recreational activities such as hiking, etc. He was referred by PCP. Treatment Goals Patient/Caregiver Goals To return to recreational activities. PT-OP-C Subjective Start: 01/15/23 09:16 Freq: Status: Active Protocol: Document 02/21/23 08:30 NM (Rec: 02/21/23 13:00 NM [id number]) OP-PT Subjective Patient Comments Patient Comments Pt reports that his legs are sore after last session but denies pain. He reports that he can perform all of his ADLs and recreational activities without limitation. He wants to discharge from PT today. Patient Reported Progress Improving PT-OP-E Functional Tests Start: 01/15/23 09:16 Freq: Status: Active Protocol: Document 01/15/23 09:19 AB (Rec: 01/15/23 16:21 AB [id number]) Functional Tests Squat Test Comments weightshifts to left side PT-OP-J Posture/Palpation/Skin Start: 01/15/23 09:16 Freq: Status: Active Protocol: Document 01/15/23 09:19 AB (Rec: 01/15/23 16:21 AB [id number]) Palpation Assessment Location right achilles Palpation Location right achilles Palpation Findings None/Normal Palpation Details Pt reports very mild tnederness at distal portion of calf muscles , however mild increased thickness noted over mid portion of tendon on medial side PT-OP-K Range of Motion Start: 01/15/23 09:16 Freq: Status: Active Protocol: Document 01/15/23 09:19 AB (Rec: 01/15/23 16:21 AB [id number]) Ankle and Foot Goniometric Range of Motion Ankle and Foot Right Active Ankle/Foot ROM WFL Yes Testing Position Sitting Dorsiflexion with Knee Flexed 5 Plantarflexion 45 Inversion 35 Eversion 15 Left Active Ankle/Foot ROM WFL Yes Testing Position Sitting Dorsiflexion with Knee Extended 8 Plantarflexion 45 Inversion 35 Eversion 10 Comments Denies symptoms PT-OP-L Special Tests Start: 01/15/23 09:16 Freq: Status: Active Protocol: Document 01/15/23 09:19 AB (Rec: 01/15/23 16:21 AB [id number]) Special Tests Foot/Ankle Special Tests Wall ankle DF mobility test Test Results R: 2.75 from wall; L: 1.5 from wall Comments Pt is in half kneeling position with foot about a horizontal hand away from wall . Pt tries to touch knee to wall without lifting heel [place] Test Results negative bilaterally PT-OP-M Strength Start: 01/15/23 09:16 Freq: Status: Active Protocol: Document 01/15/23 09:19 AB (Rec: 01/15/23 16:21 AB [id number]) Ankle/Foot Strength Ankle and Foot Manual Muscle Testing Right Dorsiflexion (L4) 5 Normal Plantarflexion (S1) 5 Normal Comments Able to perform 10 heel raises with knee ext and knee flex, but pt reports feeling a difference compared to right side Left Dorsiflexion (L4) 5 Normal Plantarflexion (S1) 5 Normal Comments Able to perform 10 heel raises with knee ext and knee flex PT-OP-T Assessment and Plan Start: 01/15/23 09:16 Freq: Status: Active Protocol: Document 02/21/23 08:30 NM (Rec: 02/21/23 13:00 NM [id number]) Physical Therapy Assessment Rehab Potential Rehabilitation Potential Good Evaluation Complexity Number of Personal Factors/Comorbidities 1-2 Number of Body Systems Impaired 1-2 Clinical Presentation at Evaluation Stable Impairments Impairments Activity Tolerance,Balance, Functional Mobility,Gait,Pain, Posture,ROM,Soft Tissue Mobility,Strength Goals 5 Impairment Return to activity Short Term Goal (STG) Pt to report being able to return to recreational walking with minimal to no symptoms to show improving level of function. MET (02/18/23) STG Duration 4 Mcc Goal (LTG) Pt to report being able to return to all recreational activities with no symptoms to show return to PLOF. MET (02/18/23): Pt reports that he can perform all recreational activities with no symptoms LTG Duration 6 Four Impairment Patient Questionnaire Short Term Goal (STG) LEFS score and FAAM score to improve by 10 points or better to show improving subjective report of symptoms for an improved QOL. STG Duration 4 Ip Network Architect Goal (LTG) LEFS score and FAAM score to improve by 15 points or better to show improving subjective report of symptoms for an improved QOL. MET (02/18/23): New FAAM 79/84 (increased by 17 points), LEFS 64/80 (increased 11) LTG Duration 6 Three Impairment Squat mechanics Short Term Goal (STG) Pt to be able to perform squat without weightshift to 120 degress of knee flexion in order to show improving squat mechanics. STG Duration 4 Ip Network Architect Goal (LTG) Pt to be able to perform squat without weightshift to 100 degress of knee flexion in order to show improving squat mechanics. MET (02/18/23): able to perform squat with equal WB to 100 deg of knee flexion before heels elevate LTG Duration 6 Two Impairment Ankle DF Short Term Goal (STG) Pt's wall ankle DF mobility test to improve to 2 inches or less to show improving ankle mobility to show improving soft tissue and joint mobility to improve squat mechanics and gait mechanics. MET 02/18/23 STG Duration 4 Ip Network Architect Goal (LTG) Pt's wall ankle DF mobility test to improve to 1.5 inches or less to show improving ankle mobility to show improving soft tissue and joint mobility to improve squat mechanics and gait mechanics. MET (02/21/23): R Ankle DF with knee 1 from wall LTG Duration 6 One Impairment Ankle DF Short Term Goal (STG) Pt's ankle DF AROM to improve to 10 degrees or better to show improving soft tissue and joint mobility to improve squat mechanics and gait mechanics. MET 02/18/23 STG Duration 4 Mcc Goal (LTG) Pt's ankle DF AROM to improve to 15 degrees or better to show improving soft tissue and joint mobility to improve squat mechanics and gait mechanics. NOT MET (02/21/23): Ankle DF 11 deg NOT MET (02/18/23): Ankle DF AROM 10 deg LTG Duration 6 Progress Towards Goals Progress Towards Goals Progressing Toward Goals,Goals Met Progress Comments Has met all goals except 1 ( partially met for Ankle DF ROM ) Assessment Summary Assessment Pt tolerates sessions well with no reported pain or restrictions during activity. He is able to perform single limb stance balance on unstable surfaces, multi- planar movements on stable/ unstable surfaces, in addition to higher level static & dynamic balance activities on both stable/unstable surfaces with no or minimal LOB. Pt is able to perform weight shifts and utilize good ankle strategy to correct and maintain his TERESITA when challenged on unstable surfaces; he is not limited by RLE mobility or strength. Pt demos overall improvements R ankle strength and mobility since IE. He has met 4/5 goals for ankle strength, mobility, and function. The last goal is partially met for ankle DF ROM, but his R ankle dorsiflexion ROM is comparable to his L ankle and improved since IE. He is able to perform >15 single limb heel raises to end range bilaterally. Pt reports that he has no pain with any activity, and he is able to perform all activities/ADLs without restriction (including hiking and boating). Pt issued HEP with BLE mobility and strengthening exercises for continuity of care and to promote independence. PT and pt discussed discharging today as pt has met most goals, is nearing end of POC, and does not have any more appointments scheduled; pt is agreeable to discharge. At this time, pt is safe to discharge from PT and was instructed to follow up with his PCP for a new referral if there are any changes. Physical Therapy Plan Frequency and Duration Frequency of Treatment discharge from PT Duration of treatment (weeks) 6 Plan of Care Start Date 01/15/23 Plan of Care End Date 02/26/23 Therapeutic Interventions Therapeutic Interventions Balance Training,Coordination Training,Gait Training,Home Exercise Program,Joint Mobilizations,Manual Therapy, Neuromuscular Re-education, Orthotic/Prosthetic Management ,Patient/Caregiver Education, Self-Care/Home Management,Soft Tissue Mobilization,Taping, Therapeutic Activities, Therapeutic Exercises Modalities Cold Pack/Ice Massage,Electric Stimulation,Hot Packs Discharge Physical Therapy Discharge Reasons Goals Met Discharge Comments Pt has met 4/5 goals; his partially met 5th goal is comparable ROM to LLE. Issued HEP for continuity and maintenance Next Visit Focus/Plan Next Note Type Discharge Summary Next Visit Plan Issued HEP; discharged from PT services for this POC
== END 2023-02-25 10:39 | disposition home or self-care (01) ==
LOC: PHYS 08:15
PROVIDERS: Family Provider Student in an Organized Health Care Education/Training Program; PCP Student in an Organized Health Care Education/Training Program; Referring Provider Student in an Organized Health Care Education/Training Program; Visit Provider Student in an Organized Health Care Education/Training Program
DX: S86.011D Strain of right Achilles tendon, subsequent encounter; M76.60 Achilles tendinitis, unspecified leg; M67.979 Unspecified disorder of synovium and tendon, unspecified ankle and foot
CPT/HCPCS: 97110; 97112; 97161; 97530; 97535

== ENCOUNTER → 2023-04-09 07:57 | Outpatient (CLI) | payer MEDICARE, OTHER, SELFPAY ==
[2023-04-09 08:37] LABS: Cholesterol 156 mg/dL (140-199); HDL Cholesterol 68 mg/dL (40-60); LDL Cholesterol Calculated 65 mg/dL (<100); Triglycerides 114 mg/dL (35-150)
== END ==
PROVIDERS: Family Provider Student in an Organized Health Care Education/Training Program; PCP Student in an Organized Health Care Education/Training Program; Referring Provider Student in an Organized Health Care Education/Training Program; Visit Provider Student in an Organized Health Care Education/Training Program
DX: E78.5 Hyperlipidemia, unspecified (principal)
CPT/HCPCS: 36415; 80061

== ENCOUNTER → 2023-07-28 11:41 | Outpatient (CLI) | payer MEDICARE, OTHER, SELFPAY ==
--- NOTE | 2023-07-28 11:42 | DI.CT.S_ITS ---
PROCEDURE: CT CHEST WO CON INDICATIONS: lung nodule TECHNIQUE: Noncontrast 2.0-2.5 mm thick sections acquired from the pulmonary apices to the posterior costophrenic angles. 7 mm thick axial MIP and 5 mm coronal and sagittal reformats were then acquired. For radiation dose reduction, the following was used: automated exposure control, adjustment of mA and/or kV according to patient size. COMPARISON: [facility], CT, CT LUNG LOW DOSE SCREENING, 01/07/2023, 10:57. FINDINGS: Image quality: Diagnostic. Lower Neck: No enlarged lymph nodes. Thyroid: No thyroid nodules which require sonographic follow up, per consensus guidelines. Axillae: No enlarged lymph nodes. Chest Wall: Unremarkable. Bones: Unremarkable. Lungs and Pleura: Right lower lobe nodule appears unchanged in size. -7 mm; right lower lobe abutting the major fissure; series 3, image 121. Mild emphysema. No pneumothorax or pleural effusions. No consolidation or suspicious nodules. Heart: Heart size is normal. No pericardial effusion. Moderate coronary artery calcification. Thoracic Vessels: The aorta and pulmonary arteries demonstrate normal size. Mediastinum and Felicity: No enlarged lymph nodes. Esophagus: No wall thickening. Small hiatal hernia. Upper Abdomen: Visualized upper abdomen solid organs and bowel loops appear normal. IMPRESSION: 1. Stable 7 mm right lower lobe nodule. Recommend continue annual screening lung CT in 12 months. 2. Moderate coronary artery atherosclerosis. Fleischner Society criteria for SOLID lung nodule followup. Nodule size (mm)Low-risk patientHigh-risk patient<6 (single or multiple)No routine followup.Optional CT at 12 months. 6-8 (single or multiple)CT at 6-12 months, then optional CT at 18-24 mo.CT at 6-12 months, then CT at 18-24 months. >8 (single)CT at 3 months, PET-CT, or biopsy. Same as for low-risk pts. >8 (multiple)CT at 3-6 months, then optional CT at 18-24 mo.CT at 3-6 months, then CT at 18-24 months. Fleischner Society criteria for SUB-SOLID lung nodule followup. Solitary pure ground-glass nodules<6 mm (ground glass or part solid)No followup needed. 6 mm or larger (ground glass)CT at 6-12 months to confirm persistence, then CT every 2 years until 5 years.6 mm or larger (part solid)CT at 3-6 months to confirm persistence, then annual CT until 5 years if unchanged and solid component remains <6 mm. Multiple sub-solid nodules<6 mmCT at 3-6 months, then CT consider at 2 & 4 years for high risk patients. [address] at 3-6 months. Subsequent management based on most suspicious lesions. Recommendations do not apply to lung cancer screening, patients with immunosuppression, or patients with known primary cancer. Dictated by: Pascual Petty M.D. on 07/28/2023 at 13:16 Approved by: Pascual Petty M.D. on 07/28/2023 at 13:22
== END ==
LOC: CT 11:42
PROVIDERS: Family Provider Student in an Organized Health Care Education/Training Program; PCP Student in an Organized Health Care Education/Training Program; Referring Provider Student in an Organized Health Care Education/Training Program; Visit Provider Student in an Organized Health Care Education/Training Program
DX: R91.1 Solitary pulmonary nodule (principal); I25.10 Atherosclerotic heart disease of native coronary artery without angina pectoris; K44.9 Diaphragmatic hernia without obstruction or gangrene
CPT/HCPCS: 71250

== ENCOUNTER 2023-08-14 16:45 | Outpatient (RCR) | payer MEDICARE, OTHER, SELFPAY ==
--- NOTE | 2023-06-09 15:16 | PT.OIE ---
Current Diagnoses Unilateral primary osteoarthritis, left knee (06/09/23) Difficulty in walking, not elsewhere classified (06/09/23) Weakness (06/09/23) Past Medical History (Last Updated 02/09/23 @ 20:48 by Anuja Lim) Fatigue Fever Hearing decreased Wears glasses Past Surgical History (Last Updated 02/09/23 @ 20:48 by Anuja Lim) Anesthesia History of knee surgery Visit Care Team Role Provider Type Taylor Sarabia MD Family Provider Physician Primary Care Provider Specialty: Family Practice Obstetrics Address: [address] [place] [address], [id number] Email: [email or web address] Steven Franklin DO Attending Provider Non-Staff Referring Provider Specialty: Orthopedics Address: [address] [place] [address], [id number] Email: Physical Therapy Initial Evaluation PT-OP-A Visit Information Start: 06/09/23 12:58 Freq: Status: Active Protocol: Document 06/09/23 12:58 [facility] (Rec: 06/09/23 15:16 [facility] [id number]) Out-Patient Physical Therapy Visit Information Visit Information Visit Type Initial Evaluation Visit Note 04/02 Visit Start Time 13:02 Visit Stop Time 13:47 Visit Number 1 Number of MOBILE UI DESIGNER Visits 0 PT-OP-B Current Condition Start: 06/09/23 12:58 Freq: Status: Active Protocol: Document 06/09/23 12:58 [facility] (Rec: 06/09/23 15:16 [facility] [id number]) Current Condition History of Current Condition Onset Date 06/05/23 Current Complaints L UKA History of Current Condition Pt reports he had a menisectomy 45 years ago and was having cortizone shots and was tat the point needed surgery. He is typically really active and wants to get back to that especially this summer. Pt had a partial tear of achilles last fall and is now recovered. Pt reports he is woosy when it comes to pain. Has a trigger finger in left hand. He hasn't been doing exercises besides some general ROM. He has a FWW and elevated toilet seat but hasn' t needed it. HE showered for the first time today besides inc pain. He has a walk in shower. He has been using a hunting cot so he doesn't ahve to go upstairs. He did go upstairs to shower today. meniscectomy done in R knee 2 years ago but still painful Treatment Goals Patient/Caregiver Goals Fishing, crabbing, biking, hiking, work on 5 acre yard and around house PT-OP-C Subjective Start: 06/09/23 12:58 Freq: Status: Active Protocol: Document 06/09/23 12:58 [facility] (Rec: 06/09/23 15:16 [facility] [id number]) Patient Questionnaires Lower Extremity Functional Scale LEFS Score 0 PT-OP-F Manual Assessment Start: 06/09/23 12:58 Freq: Status: Active Protocol: Document 06/09/23 12:58 [facility] (Rec: 06/09/23 15:16 [facility] [id number]) Manual Assessments Other Manual Assessments Other Manual Assessments He took off the surgical dressing yesterday adn changed to what was recommended. He is wearing thigh high compression stockings. mild bruising noted in med quad PT-OP-G Mobility & Gait Start: 06/09/23 12:58 Freq: Status: Active Protocol: Document 06/09/23 12:58 [facility] (Rec: 06/09/23 15:16 [facility] [id number]) OP Gait Assessment Comments Gait Comments Amb w/sig dec stance on LLE, lat lean to LLE; dec step length RLE step through and amb w/pole on L PT-OP-K Range of Motion Start: 06/09/23 12:58 Freq: Status: Active Protocol: Document 06/09/23 12:58 [facility] (Rec: 06/09/23 15:16 [facility] [id number]) Knee Goniometric Range of Motion Knee Right Flexion Active (degrees) 118 Extension Active (degrees) 5 Left Flexion Active (degrees) 76 Extension Active (degrees) 12 Comments pain PT-OP-M Strength Start: 06/09/23 12:58 Freq: Status: Active Protocol: Document 06/09/23 12:58 [facility] (Rec: 06/09/23 15:16 [facility] [id number]) Hip Strength Hip Manual Muscle Testing Right Flexion (L2) 5 Normal Abduction 4 Good External Rotation 5 Normal Internal Rotation 5 Normal Left Flexion (L2) 3- Fair- Abduction 3+ Fair+ External Rotation 3 Fair Internal Rotation 3+ Fair+ Knee Strength Knee Manual Muscle Testing Right Flexion (S2) 5 Normal Extension (L3) 5 Normal Left Flexion (S2) 3+ Fair+ Extension (L3) 3- Fair- Ankle/Foot Strength Ankle and Foot Manual Muscle Testing Right Dorsiflexion (L4) 5 Normal Plantarflexion (S1) 5 Normal Left Dorsiflexion (L4) 5 Normal Plantarflexion (S1) 5 Normal Comments PF tested seated B PT-OP-Q Treatments Start: 06/09/23 12:58 Freq: Status: Active Protocol: Document 06/09/23 12:58 [facility] (Rec: 06/09/23 15:16 [facility] [id number]) Therapeutic Exercises Supine Exercises SAQ Side left Reps/Minutes 6 heel slides Side left Reps/Minutes 6x5 sec quad set Side left Reps/Minutes 5 sec x10 Sitting Exercises march Side bilateral Reps/Minutes 8 LAQ Side left Reps/Minutes 6 knee flex Side left Equipment Used towel under Reps/Minutes 6x6sec Self-Care/Home Management Treatment Education Other Education 10 min: edu on icing for 10-15 min mult times a day. Discussed use of walker to improve gait pattern instead of using walking stick at this [facility] and why walking stick needs to be in R hand. Edu on frequent bouts of activity w/ walking every hour for small distances along w/APs and importance of doing exercises 2-3x/day PT-OP-T Assessment and Plan Start: 06/09/23 12:58 Freq: Status: Active Protocol: Document 06/09/23 12:58 [facility] (Rec: 06/09/23 15:16 [facility] [id number]) Physical Therapy Assessment Rehab Potential Rehabilitation Potential Good Evaluation Complexity Number of Personal Factors/Comorbidities 3 or More Number of Body Systems Impaired 4 or More Clinical Presentation at Evaluation Evolving Impairments Impairments Activity Tolerance,Balance, Edema,Functional Activities, Functional Mobility,Gait,Pain, Posture,ROM,Soft Tissue Mobility,Strength,Transfers Goals strength Short Term Goal (STG) pt will be indep w/HEP STG Duration 07/22/23 Immigration Inspector Goal (LTG) Pt will score 5/5 on all B LE MMT in order to allow ease w/ typical active lifestyle. LTG Duration 09/01/23 ROM Short Term Goal (STG) Pt will improved L knee AROM to at least 5-100 STG Duration 07/21 Alf Goal (LTG) Pt will have at least 0-125 deg L Knee ROM in order to allow pt to do stairs and squatting down activities. LTG Duration 09/01/23 activity Short Term Goal (STG) pt will be able to go for walks on flat ground up to 1/2 mile w/o inc pain greater than 4/10 STG Duration 07/23/23 Alf Goal (LTG) pt will be able to go for walks on uneven ground/trails for 2 miles w/o inc pain greater than 1/10 LTG Duration 09/01/23 LEFS Impairment 0 Short Term Goal (STG) Pt will be to improve LEFS to at least 35/80 to show improved functional ability. STG Duration 07/23/23 Immigration Inspector Goal (LTG) Pt will be to improve LEFS to at least 60/80 to show improved functional ability. LTG Duration 09/01/23 Assessment Summary Assessment Pt presents 4 days s/p L partial knee replacement w/ overall good pain controla nd ROM but presents amb w/walking stick in LUE with signficant gait deviations. Pt was educated on appropriate use of walking stick and encouraged to use walker until knee feels better and he is not as unstable w/his gait. He is limited in ROM into both flex and ext and notes pain w/both ranges. He would benefit from skilled PT to work on ROM, pain,s trength, gait and balance in order for pt to return to hiking, biking, yard work and house work w/o inc pain. Physical Therapy Plan Frequency and Duration Frequency of Treatment 2x/Week Duration of treatment (weeks) 12 Plan of Care Start Date 06/09/23 Plan of Care End Date 09/01/23 Therapeutic Interventions Therapeutic Interventions Balance Training,Gait Training ,Home Exercise Program,Joint Mobilizations,Manual Therapy, Neuromuscular Re-education, Orthotic/Prosthetic Management ,Patient/Caregiver Education, Self-Care/Home Management,Soft Tissue Mobilization,Taping, Therapeutic Activities, Therapeutic Exercises Modalities Cold Pack/Ice Massage,Electric Stimulation,Hot Packs, Ultrasound Next Visit Focus/Plan Next Note Type Treatment Note Next Visit Plan review exercises; try stepper and light weight leg press; AAROM w/ball and use of belt for flex; work on gait mechanics manual to improve ROM
--- NOTE | 2023-06-09 15:16 | PT.OPPOC ---
Addendum entered and electronically signed by Christy Martinez PT 07/17/23 13:16: POC sent DOS and 07/16 Original Note: Physical, Occupational & Speech Therapy At [facility] Current Diagnoses Unilateral primary osteoarthritis, left knee (06/09/23) Difficulty in walking, not elsewhere classified (06/09/23) Weakness (06/09/23) Visit Care Team Role Provider Type Taylor Sarabia MD Family Provider Physician Primary Care Provider Specialty: Family Practice Obstetrics Address: [address] [place] [address], [id number] Email: [email or web address] Steven Franklin DO Attending Provider Non-Staff Referring Provider Specialty: Orthopedics Address: [address] [place] [address], [id number] Email: Plan Of Care PT-OP-T Assessment and Plan Start: 06/09/23 12:58 Freq: Status: Active Protocol: Document 06/09/23 12:58 [facility] (Rec: 06/09/23 15:16 [facility] [id number]) Physical Therapy Assessment Rehab Potential Rehabilitation Potential Good Evaluation Complexity Number of Personal Factors/Comorbidities 3 or More Number of Body Systems Impaired 4 or More Clinical Presentation at Evaluation Evolving Impairments Impairments Activity Tolerance,Balance, Edema,Functional Activities, Functional Mobility,Gait,Pain, Posture,ROM,Soft Tissue Mobility,Strength,Transfers Goals strength Short Term Goal (STG) pt will be indep w/HEP STG Duration 07/22/23 Residential Goal (LTG) Pt will score 5/5 on all B LE MMT in order to allow ease w/ typical active lifestyle. LTG Duration 09/01/23 ROM Short Term Goal (STG) Pt will improved L knee AROM to at least 5-100 STG Duration 07/21 Core Winder Machine Operator Goal (LTG) Pt will have at least 0-125 deg L Knee ROM in order to allow pt to do stairs and squatting down activities. LTG Duration 09/01/23 activity Short Term Goal (STG) pt will be able to go for walks on flat ground up to 1/2 mile w/o inc pain greater than 4/10 STG Duration 07/23/23 Core Winder Machine Operator Goal (LTG) pt will be able to go for walks on uneven ground/trails for 2 miles w/o inc pain greater than 1/10 LTG Duration 09/01/23 LEFS Impairment 0 Short Term Goal (STG) Pt will be to improve LEFS to at least 35/80 to show improved functional ability. STG Duration 07/23/23 Core Winder Machine Operator Goal (LTG) Pt will be to improve LEFS to at least 60/80 to show improved functional ability. LTG Duration 09/01/23 Assessment Summary Assessment Pt presents 4 days s/p L partial knee replacement w/ overall good pain controla nd ROM but presents amb w/walking stick in LUE with signficant gait deviations. Pt was educated on appropriate use of walking stick and encouraged to use walker until knee feels better and he is not as unstable w/his gait. He is limited in ROM into both flex and ext and notes pain w/both ranges. He would benefit from skilled PT to work on ROM, pain,s trength, gait and balance in order for pt to return to hiking, biking, yard work and house work w/o inc pain. Physical Therapy Plan Frequency and Duration Frequency of Treatment 2x/Week Duration of treatment (weeks) 12 Plan of Care Start Date 06/09/23 Plan of Care End Date 09/01/23 Therapeutic Interventions Therapeutic Interventions Balance Training,Gait Training ,Home Exercise Program,Joint Mobilizations,Manual Therapy, Neuromuscular Re-education, Orthotic/Prosthetic Management ,Patient/Caregiver Education, Self-Care/Home Management,Soft Tissue Mobilization,Taping, Therapeutic Activities, Therapeutic Exercises Modalities Cold Pack/Ice Massage,Electric Stimulation,Hot Packs, Ultrasound Next Visit Focus/Plan Next Note Type Treatment Note Next Visit Plan review exercises; try stepper and light weight leg press; AAROM w/ball and use of belt for flex; work on gait mechanics manual to improve ROM Plan of Care Dates Plan of Care Start Date 06/09/23 Plan of Care End Date 09/01/23 Electronically Signed by: Christy Martinez, PT 06/09/23 1484 If you are in agreement with this Plan of Care, please return a signed and dated copy. I have reviewed this Plan of Care and certify that the skilled therapy services above are required to meet the patient?s needs. Physician Signature Date Printed Name and Credentials Clinical Instructor Signature Printed Name and Credentials
--- NOTE | 2023-06-11 13:43 | PT-OP ANOTE ---
Phoned patient regarding patient cancel today to advise patient of openings for additional appointments tomorrow. Patient reports he is already scheduled for .
--- NOTE | 2023-06-16 10:54 | PT.OTN ---
Current Diagnoses Unilateral primary osteoarthritis, left knee (06/16/23) Difficulty in walking, not elsewhere classified (06/16/23) Weakness (06/16/23) Physical Therapy Treatment Note PT-OP-A Visit Information Start: 06/09/23 12:58 Freq: Status: Active Protocol: Document 06/16/23 08:13 [facility] (Rec: 06/16/23 10:54 [facility] [id number]) Out-Patient Physical Therapy Visit Information Visit Information Visit Type Initial Evaluation Visit Note 05/03 Access Code [email or web address] Visit Start Time 09:03 Visit Stop Time 09:45 Visit Number 2 Number of ART HISTORY PROFESSOR Visits 1 PT-OP-B Current Condition Start: 06/09/23 12:58 Freq: Status: Active Protocol: Document 06/09/23 12:58 [facility] (Rec: 06/09/23 15:16 [facility] [id number]) Current Condition History of Current Condition Onset Date 06/05/23 Current Complaints L UKA History of Current Condition Pt reports he had a menisectomy 45 years ago and was having cortizone shots and was tat the point needed surgery. He is typically really active and wants to get back to that especially this summer. Pt had a partial tear of achilles last fall and is now recovered. Pt reports he is woosy when it comes to pain. Has a trigger finger in left hand. He hasn't been doing exercises besides some general ROM. He has a FWW and elevated toilet seat but hasn' t needed it. HE showered for the first time today besides inc pain. He has a walk in shower. He has been using a hunting cot so he doesn't ahve to go upstairs. He did go upstairs to shower today. meniscectomy done in R knee 2 years ago but still painful Treatment Goals Patient/Caregiver Goals Fishing, crabbing, biking, hiking, work on 5 acre yard and around house PT-OP-C Subjective Start: 06/09/23 12:58 Freq: Status: Active Protocol: Document 06/16/23 08:13 [facility] (Rec: 06/16/23 10:54 [facility] [id number]) OP-PT Subjective Patient Comments Patient Comments Patient reports last week was a mess, had to cancel appointment, reports ended up with constipation, couldn't sleep isn't sure how the knee compared to previous session. Patient comments he doesn't even remember last session. Patient questioning if he could wear a brace for walking . lacking 14 deg extension to 95 deg flexion AROM left knee PT-OP-F Manual Assessment Start: 06/09/23 12:58 Freq: Status: Active Protocol: Document 06/09/23 12:58 [facility] (Rec: 06/09/23 15:16 [facility] [id number]) Manual Assessments Other Manual Assessments Other Manual Assessments He took off the surgical dressing yesterday adn changed to what was recommended. He is wearing thigh high compression stockings. mild bruising noted in med quad PT-OP-G Mobility & Gait Start: 06/09/23 12:58 Freq: Status: Active Protocol: Document 06/09/23 12:58 [facility] (Rec: 06/09/23 15:16 [facility] [id number]) OP Gait Assessment Comments Gait Comments Amb w/sig dec stance on LLE, lat lean to LLE; dec step length RLE step through and amb w/pole on L PT-OP-K Range of Motion Start: 06/09/23 12:58 Freq: Status: Active Protocol: Document 06/09/23 12:58 [facility] (Rec: 06/09/23 15:16 [facility] [id number]) Knee Goniometric Range of Motion Knee Right Flexion Active (degrees) 118 Extension Active (degrees) 5 Left Flexion Active (degrees) 76 Extension Active (degrees) 12 Comments pain PT-OP-M Strength Start: 06/09/23 12:58 Freq: Status: Active Protocol: Document 06/09/23 12:58 [facility] (Rec: 06/09/23 15:16 [facility] [id number]) Hip Strength Hip Manual Muscle Testing Right Flexion (L2) 5 Normal Abduction 4 Good External Rotation 5 Normal Internal Rotation 5 Normal Left Flexion (L2) 3- Fair- Abduction 3+ Fair+ External Rotation 3 Fair Internal Rotation 3+ Fair+ Knee Strength Knee Manual Muscle Testing Right Flexion (S2) 5 Normal Extension (L3) 5 Normal Left Flexion (S2) 3+ Fair+ Extension (L3) 3- Fair- Ankle/Foot Strength Ankle and Foot Manual Muscle Testing Right Dorsiflexion (L4) 5 Normal Plantarflexion (S1) 5 Normal Left Dorsiflexion (L4) 5 Normal Plantarflexion (S1) 5 Normal Comments PF tested seated B PT-OP-Q Treatments Start: 06/09/23 12:58 Freq: Status: Active Protocol: Document 06/16/23 08:13 [facility] (Rec: 06/16/23 10:54 [facility] [id number]) Therapeutic Exercises Supine Exercises knee flexion with feet on ball Side bilateral Reps/Minutes 2 min HS stretch Supine Exercise Name from hooklying Side left Equipment Used towel to hold LE Reps/Minutes 15 sec X 2 Comments discontinued due to reports of discomfort knee joint vs sensation at hamstr knee flexion with feet on wall Side bilateral Reps/Minutes 5 min Comments Verbal cues to lower foot down the wall a little more every minute heel slides Supine Exercise Name AROM Side left Reps/Minutes X10 Sitting Exercises seated hip abduction with band Side bilateral Equipment Used level 2 band Reps/Minutes one minute hold Comments verbal cues for direction of force and duration of hold hamstring stretch Sitting Exercise Name LE on mat then seated in a chair Side left Reps/Minutes 60 sec X 1 each verson of seated stretch Therapeutic Activity Therapeutic Activity sit to stand Name with and without UE use Reps/Minutes X3 Comments verbal cues to increase left knee flexion to the same amount of flexion right knee is positioned in prior to sit to stand. Manual Therapy Treatment Soft Tissue Mobilization STM left knee Body Location quad, hamstring and for swelling. Mobilization Type Cross-Friction,Rolling,Other Intensity/Depth Moderate Body Position Hooklying Comments monitored for pain, performed prior to stretches Self-Care/Home Management Treatment Activities Self-Care/Home Management Activities HEP, knee flexion on wall, AROM heel slide, seated HS stretch, seated quad set, SLR PT-OP-T Assessment and Plan Start: 06/09/23 12:58 Freq: Status: Active Protocol: Document 06/16/23 08:13 [facility] (Rec: 06/16/23 10:54 [facility] [id number]) Physical Therapy Assessment Goals strength Short Term Goal (STG) pt will be indep w/HEP STG Duration 07/22/23 Correction Goal (LTG) Pt will score 5/5 on all B LE MMT in order to allow ease w/ typical active lifestyle. LTG Duration 09/01/23 ROM Short Term Goal (STG) Pt will improved L knee AROM to at least 5-100 STG Duration 07/21 Supervisor Roving Goal (LTG) Pt will have at least 0-125 deg L Knee ROM in order to allow pt to do stairs and squatting down activities. LTG Duration 09/01/23 activity Short Term Goal (STG) pt will be able to go for walks on flat ground up to 1/2 mile w/o inc pain greater than 4/10 STG Duration 07/23/23 Supervisor Roving Goal (LTG) pt will be able to go for walks on uneven ground/trails for 2 miles w/o inc pain greater than 1/10 LTG Duration 09/01/23 LEFS Impairment 0 Short Term Goal (STG) Pt will be to improve LEFS to at least 35/80 to show improved functional ability. STG Duration 07/23/23 Supervisor Roving Goal (LTG) Pt will be to improve LEFS to at least 60/80 to show improved functional ability. LTG Duration 09/01/23 Assessment Summary Assessment Patient reports feeling better end session, AROM left knee lacking 10 deg extension to 102 deg flexion, end of session. Physical Therapy Plan Frequency and Duration Frequency of Treatment 2x/Week Duration of treatment (weeks) 12 Plan of Care Start Date 06/09/23 Plan of Care End Date 09/01/23 Next Visit Focus/Plan Next Visit Plan review exercises; try stepper and light weight leg press; AAROM w/ball and use of belt for flex; work on gait mechanics manual to improve ROM
--- NOTE | 2023-06-18 12:16 | PT.OTN ---
Current Diagnoses Unilateral primary osteoarthritis, left knee (06/18/23) Difficulty in walking, not elsewhere classified (06/18/23) Weakness (06/18/23) Physical Therapy Treatment Note PT-OP-A Visit Information Start: 06/09/23 12:58 Freq: Status: Active Protocol: Document 06/18/23 08:15 AB (Rec: 06/18/23 08:18 AB [id number]) Out-Patient Physical Therapy Visit Information Visit Information Visit Type Treatment Note Visit Note 05/31 Access Code [email or web address] Visit Start Time 09:07 Visit Stop Time 09:48 Visit Number 3 Number of ADULT REMEDIAL EDUCATION INSTRUCTOR Visits 1 PT-OP-B Current Condition Start: 06/09/23 12:58 Freq: Status: Active Protocol: Document 06/09/23 12:58 [facility] (Rec: 06/09/23 15:16 [facility] [id number]) Current Condition History of Current Condition Onset Date 06/05/23 Current Complaints L UKA History of Current Condition Pt reports he had a menisectomy 45 years ago and was having cortizone shots and was tat the point needed surgery. He is typically really active and wants to get back to that especially this summer. Pt had a partial tear of achilles last fall and is now recovered. Pt reports he is woosy when it comes to pain. Has a trigger finger in left hand. He hasn't been doing exercises besides some general ROM. He has a FWW and elevated toilet seat but hasn' t needed it. HE showered for the first time today besides inc pain. He has a walk in shower. He has been using a hunting cot so he doesn't ahve to go upstairs. He did go upstairs to shower today. meniscectomy done in R knee 2 years ago but still painful Treatment Goals Patient/Caregiver Goals Fishing, crabbing, biking, hiking, work on 5 acre yard and around house PT-OP-C Subjective Start: 06/09/23 12:58 Freq: Status: Active Protocol: Document 06/18/23 08:15 AB (Rec: 06/18/23 09:06 AB [id number]) OP-PT Subjective Patient Comments Patient Comments Patient reports he was pretty sore post previous session, Patient reports he took pain medication prior to this session, was pretty sore this morning lacking 10 deg extension to 99 deg flexion AROM left knee start of session PT-OP-F Manual Assessment Start: 06/09/23 12:58 Freq: Status: Active Protocol: Document 06/09/23 12:58 [facility] (Rec: 06/09/23 15:16 [facility] [id number]) Manual Assessments Other Manual Assessments Other Manual Assessments He took off the surgical dressing yesterday adn changed to what was recommended. He is wearing thigh high compression stockings. mild bruising noted in med quad PT-OP-G Mobility & Gait Start: 06/09/23 12:58 Freq: Status: Active Protocol: Document 06/09/23 12:58 [facility] (Rec: 06/09/23 15:16 [facility] [id number]) OP Gait Assessment Comments Gait Comments Amb w/sig dec stance on LLE, lat lean to LLE; dec step length RLE step through and amb w/pole on L PT-OP-K Range of Motion Start: 06/09/23 12:58 Freq: Status: Active Protocol: Document 06/09/23 12:58 [facility] (Rec: 06/09/23 15:16 [facility] [id number]) Knee Goniometric Range of Motion Knee Right Flexion Active (degrees) 118 Extension Active (degrees) 5 Left Flexion Active (degrees) 76 Extension Active (degrees) 12 Comments pain PT-OP-M Strength Start: 06/09/23 12:58 Freq: Status: Active Protocol: Document 06/09/23 12:58 [facility] (Rec: 06/09/23 15:16 [facility] [id number]) Hip Strength Hip Manual Muscle Testing Right Flexion (L2) 5 Normal Abduction 4 Good External Rotation 5 Normal Internal Rotation 5 Normal Left Flexion (L2) 3- Fair- Abduction 3+ Fair+ External Rotation 3 Fair Internal Rotation 3+ Fair+ Knee Strength Knee Manual Muscle Testing Right Flexion (S2) 5 Normal Extension (L3) 5 Normal Left Flexion (S2) 3+ Fair+ Extension (L3) 3- Fair- Ankle/Foot Strength Ankle and Foot Manual Muscle Testing Right Dorsiflexion (L4) 5 Normal Plantarflexion (S1) 5 Normal Left Dorsiflexion (L4) 5 Normal Plantarflexion (S1) 5 Normal Comments PF tested seated B PT-OP-Q Treatments Start: 06/09/23 12:58 Freq: Status: Active Protocol: Document 06/18/23 08:15 AB (Rec: 06/18/23 09:06 AB [id number]) Gym Equipment Shuttle Recovery knee extension Details verbal cues to avoid locking knees Resistance one light blue Reps/Time 2X15 Therapeutic Exercises Supine Exercises knee flexion with feet on ball Side bilateral Reps/Minutes 2 min HS stretch Supine Exercise Name with strap knee flexion with feet on wall Side bilateral Reps/Minutes 5 min Comments Verbal cues to lower foot down the wall a little more every minute heel slides Supine Exercise Name AROM Side left Reps/Minutes X10 Sitting Exercises SAQ Reps/Minutes 2X10 Comments verbal cues to fully extend the knee Manual Therapy Treatment Soft Tissue Mobilization STM left knee Body Location quad, hamstring and for swelling. Mobilization Type Cross-Friction,Rolling,Other Intensity/Depth Moderate Body Position Hooklying Comments . PT-OP-T Assessment and Plan Start: 06/09/23 12:58 Freq: Status: Active Protocol: Document 06/18/23 08:15 AB (Rec: 06/18/23 08:18 AB [id number]) Physical Therapy Assessment Goals strength Short Term Goal (STG) pt will be indep w/HEP STG Duration 07/22/23 Channel Business Manager Goal (LTG) Pt will score 5/5 on all B LE MMT in order to allow ease w/ typical active lifestyle. LTG Duration 09/01/23 ROM Short Term Goal (STG) Pt will improved L knee AROM to at least 5-100 STG Duration 07/21 Channel Business Manager Goal (LTG) Pt will have at least 0-125 deg L Knee ROM in order to allow pt to do stairs and squatting down activities. LTG Duration 09/01/23 activity Short Term Goal (STG) pt will be able to go for walks on flat ground up to 1/2 mile w/o inc pain greater than 4/10 STG Duration 07/23/23 Fpc Goal (LTG) pt will be able to go for walks on uneven ground/trails for 2 miles w/o inc pain greater than 1/10 LTG Duration 09/01/23 LEFS Impairment 0 Short Term Goal (STG) Pt will be to improve LEFS to at least 35/80 to show improved functional ability. STG Duration 07/23/23 Channel Business Manager Goal (LTG) Pt will be to improve LEFS to at least 60/80 to show improved functional ability. LTG Duration 09/01/23 Assessment Summary Assessment lacking 7 deg extension to 103 deg AROM end of session. Patient reports the leg feels better than when he came it Physical Therapy Plan Frequency and Duration Frequency of Treatment 2x/Week Duration of treatment (weeks) 12 Plan of Care Start Date 06/09/23 Plan of Care End Date 09/01/23 Next Visit Focus/Plan Next Note Type Treatment Note Next Visit Plan review exercises; try stepper and light weight leg press; AAROM w/ball and use of belt for flex; work on gait mechanics manual to improve ROM
--- NOTE | 2023-06-24 15:17 | PT.OTN ---
Current Diagnoses Unilateral primary osteoarthritis, left knee (06/24/23) Difficulty in walking, not elsewhere classified (06/24/23) Weakness (06/24/23) Physical Therapy Treatment Note PT-OP-A Visit Information Start: 06/09/23 12:58 Freq: Status: Active Protocol: Document 06/24/23 14:34 [facility] (Rec: 06/24/23 15:17 [facility] [id number]) Out-Patient Physical Therapy Visit Information Visit Information Visit Type Treatment Note Visit Note 07/01 Access Code [email or web address] Visit Start Time 14:35 Visit Stop Time 15:15 Visit Number 4 Number of SERVICE EMPLOYEE Visits 0 PT-OP-B Current Condition Start: 06/09/23 12:58 Freq: Status: Active Protocol: Document 06/09/23 12:58 [facility] (Rec: 06/09/23 15:16 [facility] [id number]) Current Condition History of Current Condition Onset Date 06/05/23 Current Complaints L UKA History of Current Condition Pt reports he had a menisectomy 45 years ago and was having cortizone shots and was tat the point needed surgery. He is typically really active and wants to get back to that especially this summer. Pt had a partial tear of achilles last fall and is now recovered. Pt reports he is woosy when it comes to pain. Has a trigger finger in left hand. He hasn't been doing exercises besides some general ROM. He has a FWW and elevated toilet seat but hasn' t needed it. HE showered for the first time today besides inc pain. He has a walk in shower. He has been using a hunting cot so he doesn't ahve to go upstairs. He did go upstairs to shower today. meniscectomy done in R knee 2 years ago but still painful Treatment Goals Patient/Caregiver Goals Fishing, crabbing, biking, hiking, work on 5 acre yard and around house PT-OP-C Subjective Start: 06/09/23 12:58 Freq: Status: Active Protocol: Document 06/24/23 14:34 [facility] (Rec: 06/24/23 15:17 [facility] [id number]) OP-PT Subjective Patient Comments Patient Comments Pt reports he has been working hard at his exercises. PA said he was doing well PT-OP-F Manual Assessment Start: 06/09/23 12:58 Freq: Status: Active Protocol: Document 06/09/23 12:58 [facility] (Rec: 06/09/23 15:16 [facility] [id number]) Manual Assessments Other Manual Assessments Other Manual Assessments He took off the surgical dressing yesterday adn changed to what was recommended. He is wearing thigh high compression stockings. mild bruising noted in med quad PT-OP-G Mobility & Gait Start: 06/09/23 12:58 Freq: Status: Active Protocol: Document 06/09/23 12:58 [facility] (Rec: 06/09/23 15:16 [facility] [id number]) OP Gait Assessment Comments Gait Comments Amb w/sig dec stance on LLE, lat lean to LLE; dec step length RLE step through and amb w/pole on L PT-OP-K Range of Motion Start: 06/09/23 12:58 Freq: Status: Active Protocol: Document 06/09/23 12:58 [facility] (Rec: 06/09/23 15:16 [facility] [id number]) Knee Goniometric Range of Motion Knee Right Flexion Active (degrees) 118 Extension Active (degrees) 5 Left Flexion Active (degrees) 76 Extension Active (degrees) 12 Comments pain PT-OP-M Strength Start: 06/09/23 12:58 Freq: Status: Active Protocol: Document 06/09/23 12:58 [facility] (Rec: 06/09/23 15:16 [facility] [id number]) Hip Strength Hip Manual Muscle Testing Right Flexion (L2) 5 Normal Abduction 4 Good External Rotation 5 Normal Internal Rotation 5 Normal Left Flexion (L2) 3- Fair- Abduction 3+ Fair+ External Rotation 3 Fair Internal Rotation 3+ Fair+ Knee Strength Knee Manual Muscle Testing Right Flexion (S2) 5 Normal Extension (L3) 5 Normal Left Flexion (S2) 3+ Fair+ Extension (L3) 3- Fair- Ankle/Foot Strength Ankle and Foot Manual Muscle Testing Right Dorsiflexion (L4) 5 Normal Plantarflexion (S1) 5 Normal Left Dorsiflexion (L4) 5 Normal Plantarflexion (S1) 5 Normal Comments PF tested seated B PT-OP-Q Treatments Start: 06/09/23 12:58 Freq: Status: Active Protocol: Document 06/24/23 14:34 [facility] (Rec: 06/24/23 15:17 [facility] [id number]) Cardio Equipment Bicycle (Upright) Duration (Minutes) 6 Resistance 6 Seat Position 9 Therapeutic Exercises Supine Exercises knee flexion with feet on ball Side bilateral Reps/Minutes 2 min Standing Exercises flex Side left Equipment Used rail Reps/Minutes 10 calf stretch Side bilateral Reps/Minutes 1 min step ups Standing Exercise Name rail prn Side left Equipment Used 6 in Reps/Minutes 10 TKE Standing Exercise Name staggered stance Side left Equipment Used L2 Reps/Minutes 2 sec x12 heel raises Standing Exercise Name stairs Side bilateral Reps/Minutes 15 squat Side bilateral Reps/Minutes 10 Comments partial-about 70 deg sit to stand Side bilateral Reps/Minutes 10 Comments cues for control Manual Therapy Treatment Soft Tissue Mobilization STM left knee Body Location quad, hamstring & ITB & calf Mobilization Type Rolling Intensity/Depth Moderate Body Position Hooklying Comments w/flex and ext Joint Mobilizations patellofemoral Joint sup, inf, med PT-OP-T Assessment and Plan Start: 06/09/23 12:58 Freq: Status: Active Protocol: Document 06/24/23 14:34 [facility] (Rec: 06/24/23 15:17 [facility] [id number]) Physical Therapy Assessment Goals strength Short Term Goal (STG) pt will be indep w/HEP STG Duration 07/22/23 Retirement Goal (LTG) Pt will score 5/5 on all B LE MMT in order to allow ease w/ typical active lifestyle. LTG Duration 09/01/23 ROM Short Term Goal (STG) Pt will improved L knee AROM to at least 5-100 STG Duration 07/21 Retirement Goal (LTG) Pt will have at least 0-125 deg L Knee ROM in order to allow pt to do stairs and squatting down activities. LTG Duration 09/01/23 activity Short Term Goal (STG) pt will be able to go for walks on flat ground up to 1/2 mile w/o inc pain greater than 4/10 STG Duration 07/23/23 Road Mixer Operator Goal (LTG) pt will be able to go for walks on uneven ground/trails for 2 miles w/o inc pain greater than 1/10 LTG Duration 09/01/23 LEFS Impairment 0 Short Term Goal (STG) Pt will be to improve LEFS to at least 35/80 to show improved functional ability. STG Duration 07/23/23 Road Mixer Operator Goal (LTG) Pt will be to improve LEFS to at least 60/80 to show improved functional ability. LTG Duration 09/01/23 Assessment Summary Assessment 1-107 deg after exercise and prior to manual. He does report some pain w/exercise but no more than 5/10 and is progressing well with difficulty of exercise Physical Therapy Plan Frequency and Duration Frequency of Treatment 2x/Week Duration of treatment (weeks) 12 Plan of Care Start Date 06/09/23 Plan of Care End Date 09/01/23 Next Visit Focus/Plan Next Note Type Treatment Note Next Visit Plan bike, advance strength and ROM exercises Add balance board and unstable surfaces for progression back to fishing
--- NOTE | 2023-06-26 11:10 | PT.OTN ---
Current Diagnoses Unilateral primary osteoarthritis, left knee (06/26/23) Difficulty in walking, not elsewhere classified (06/26/23) Weakness (06/26/23) Physical Therapy Treatment Note PT-OP-A Visit Information Start: 06/09/23 12:58 Freq: Status: Active Protocol: Document 06/26/23 08:00 AB (Rec: 06/26/23 11:10 AB [id number]) Out-Patient Physical Therapy Visit Information Visit Information Visit Type Treatment Note Visit Note 07/01 Access Code [email or web address] Visit Start Time 09:02 Visit Stop Time 09:46 Visit Number 5 Number of EMERGENCY DEPARTMENT COORDINATOR Visits 1 PT-OP-B Current Condition Start: 06/09/23 12:58 Freq: Status: Active Protocol: Document 06/09/23 12:58 [facility] (Rec: 06/09/23 15:16 [facility] [id number]) Current Condition History of Current Condition Onset Date 06/05/23 Current Complaints L UKA History of Current Condition Pt reports he had a menisectomy 45 years ago and was having cortizone shots and was tat the point needed surgery. He is typically really active and wants to get back to that especially this summer. Pt had a partial tear of achilles last fall and is now recovered. Pt reports he is woosy when it comes to pain. Has a trigger finger in left hand. He hasn't been doing exercises besides some general ROM. He has a FWW and elevated toilet seat but hasn' t needed it. HE showered for the first time today besides inc pain. He has a walk in shower. He has been using a hunting cot so he doesn't ahve to go upstairs. He did go upstairs to shower today. meniscectomy done in R knee 2 years ago but still painful Treatment Goals Patient/Caregiver Goals Fishing, crabbing, biking, hiking, work on 5 acre yard and around house PT-OP-C Subjective Start: 06/09/23 12:58 Freq: Status: Active Protocol: Document 06/26/23 08:00 AB (Rec: 06/26/23 11:10 AB [id number]) OP-PT Subjective Patient Comments Patient Comments Patient reports he has been more sore, didn't sleep well, did some of the exercises yesterday, but not the full amount. lacking 5 deg extension to 112 deg flexion AROM left knee start of session, SLS 15+ seconds with immediate LOB ipsilateral trunk sidebend with head turns when initiated at 15 seconds. PT-OP-F Manual Assessment Start: 06/09/23 12:58 Freq: Status: Active Protocol: Document 06/09/23 12:58 [facility] (Rec: 06/09/23 15:16 [facility] [id number]) Manual Assessments Other Manual Assessments Other Manual Assessments He took off the surgical dressing yesterday adn changed to what was recommended. He is wearing thigh high compression stockings. mild bruising noted in med quad PT-OP-G Mobility & Gait Start: 06/09/23 12:58 Freq: Status: Active Protocol: Document 06/09/23 12:58 [facility] (Rec: 06/09/23 15:16 [facility] [id number]) OP Gait Assessment Comments Gait Comments Amb w/sig dec stance on LLE, lat lean to LLE; dec step length RLE step through and amb w/pole on L PT-OP-K Range of Motion Start: 06/09/23 12:58 Freq: Status: Active Protocol: Document 06/09/23 12:58 [facility] (Rec: 06/09/23 15:16 [facility] [id number]) Knee Goniometric Range of Motion Knee Right Flexion Active (degrees) 118 Extension Active (degrees) 5 Left Flexion Active (degrees) 76 Extension Active (degrees) 12 Comments pain PT-OP-M Strength Start: 06/09/23 12:58 Freq: Status: Active Protocol: Document 06/09/23 12:58 [facility] (Rec: 06/09/23 15:16 [facility] [id number]) Hip Strength Hip Manual Muscle Testing Right Flexion (L2) 5 Normal Abduction 4 Good External Rotation 5 Normal Internal Rotation 5 Normal Left Flexion (L2) 3- Fair- Abduction 3+ Fair+ External Rotation 3 Fair Internal Rotation 3+ Fair+ Knee Strength Knee Manual Muscle Testing Right Flexion (S2) 5 Normal Extension (L3) 5 Normal Left Flexion (S2) 3+ Fair+ Extension (L3) 3- Fair- Ankle/Foot Strength Ankle and Foot Manual Muscle Testing Right Dorsiflexion (L4) 5 Normal Plantarflexion (S1) 5 Normal Left Dorsiflexion (L4) 5 Normal Plantarflexion (S1) 5 Normal Comments PF tested seated B PT-OP-Q Treatments Start: 03/18/24 12:58 Freq: Status: Active Protocol: Document 06/26/23 08:00 AB (Rec: 06/26/23 11:10 AB [id number]) Therapeutic Exercises Supine Exercises knee flexion with feet on ball Side bilateral Reps/Minutes 2 min HS stretch Supine Exercise Name from hooklying holding behind knee with towel Reps/Minutes X2 60 seconds knee flexion with feet on wall Side bilateral Reps/Minutes 3 min Comments Verbal cues to lower foot down the wall a little more every minute Sitting Exercises seated hip abduction with band Side bilateral Equipment Used level 2 band Reps/Minutes one minute hold Comments verbal cues for direction of force and duration of hold Standing Exercises mini squat with band Standing Exercise Name 25% of the way to the chair Side bilateral Resistance level 3 green band Reps/Minutes X10 sit to stand Side bilateral Resistance level 3 green band Reps/Minutes 3 Comments not sri Manual Therapy Treatment Soft Tissue Mobilization STM left knee Body Location hamstring, quad for swelling Mobilization Type Cross-Friction,Rolling Body Position Hooklying Comments and prone for hamstring stretch for hamstring/ hooklying elevated for swelling Neuro Re-Education Treatment Balance Activities SLS Details with without head turns Reps/Duration 1 min Comments Supervision tilt board Details with head turns and visual scanning Reps/Duration one minute Comments one mini squat trial not sri, reports increased pain Self-Care/Home Management Treatment Activities Self-Care/Home Management Activities seated hip abduction with band with one minute hold added to HEP and mini squat with band to HEP PT-OP-T Assessment and Plan Start: 06/09/23 12:58 Freq: Status: Active Protocol: Document 06/26/23 08:00 AB (Rec: 06/26/23 11:10 AB [id number]) Physical Therapy Assessment Goals strength Short Term Goal (STG) pt will be indep w/HEP STG Duration 07/22/23 Motocross Racer Goal (LTG) Pt will score 5/5 on all B LE MMT in order to allow ease w/ typical active lifestyle. LTG Duration 09/01/23 ROM Short Term Goal (STG) Pt will improved L knee AROM to at least 5-100 STG Duration 07/21 [facility] Goal (LTG) Pt will have at least 0-125 deg L Knee ROM in order to allow pt to do stairs and squatting down activities. LTG Duration 09/01/23 activity Short Term Goal (STG) pt will be able to go for walks on flat ground up to 1/2 mile w/o inc pain greater than 4/10 STG Duration 07/23/23 Motocross Racer Goal (LTG) pt will be able to go for walks on uneven ground/trails for 2 miles w/o inc pain greater than 1/10 LTG Duration 09/01/23 LEFS Impairment 0 Short Term Goal (STG) Pt will be to improve LEFS to at least 35/80 to show improved functional ability. STG Duration 07/23/23 [facility] Goal (LTG) Pt will be to improve LEFS to at least 60/80 to show improved functional ability. LTG Duration 09/01/23 Assessment Summary Assessment 115 deg AROM left knee post manual therapy and exercise. SLS with head turns increased to 3-4 seconds post glute med activation. Physical Therapy Plan Frequency and Duration Frequency of Treatment 2x/Week Duration of treatment (weeks) 12 Plan of Care Start Date 06/09/23 Plan of Care End Date 09/01/23 Next Visit Focus/Plan Next Note Type Treatment Note Next Visit Plan bike, advance strength and ROM exercises Add/Focus balance board and unstable surfaces for progression back to fishing
--- NOTE | 2023-07-01 11:20 | PT.OTN ---
Current Diagnoses Unilateral primary osteoarthritis, left knee (07/01/23) Difficulty in walking, not elsewhere classified (07/01/23) Weakness (07/01/23) Physical Therapy Treatment Note PT-OP-A Visit Information Start: 06/09/23 12:58 Freq: Status: Active Protocol: Document 07/01/23 09:08 [facility] (Rec: 07/01/23 11:20 [facility] [id number]) Out-Patient Physical Therapy Visit Information Visit Information Visit Type Treatment Note Visit Note 08/31 Access Code [id number] Visit Start Time 09:06 Visit Stop Time 09:45 Visit Number 6 Number of CHARTER DRIVER Visits 0 PT-OP-B Current Condition Start: 06/09/23 12:58 Freq: Status: Active Protocol: Document 06/09/23 12:58 [facility] (Rec: 06/09/23 15:16 [facility] [id number]) Current Condition History of Current Condition Onset Date 06/05/23 Current Complaints L UKA History of Current Condition Pt reports he had a menisectomy 45 years ago and was having cortizone shots and was tat the point needed surgery. He is typically really active and wants to get back to that especially this summer. Pt had a partial tear of achilles last fall and is now recovered. Pt reports he is woosy when it comes to pain. Has a trigger finger in left hand. He hasn't been doing exercises besides some general ROM. He has a FWW and elevated toilet seat but hasn' t needed it. HE showered for the first time today besides inc pain. He has a walk in shower. He has been using a hunting cot so he doesn't ahve to go upstairs. He did go upstairs to shower today. meniscectomy done in R knee 2 years ago but still painful Treatment Goals Patient/Caregiver Goals Fishing, crabbing, biking, hiking, work on 5 acre yard and around house PT-OP-C Subjective Start: 06/09/23 12:58 Freq: Status: Active Protocol: Document 07/01/23 09:08 [facility] (Rec: 07/01/23 11:20 [facility] [id number]) OP-PT Subjective Patient Comments Patient Comments Pt reports he wants to start working on scar tissue. He is going to launch a row boat to spray weeds and move his boat to its slip but has friends helping. Did okay after last session. PT-OP-F Manual Assessment Start: 06/09/23 12:58 Freq: Status: Active Protocol: Document 06/09/23 12:58 [facility] (Rec: 06/09/23 15:16 [facility] [id number]) Manual Assessments Other Manual Assessments Other Manual Assessments He took off the surgical dressing yesterday adn changed to what was recommended. He is wearing thigh high compression stockings. mild bruising noted in med quad PT-OP-G Mobility & Gait Start: 06/09/23 12:58 Freq: Status: Active Protocol: Document 06/09/23 12:58 [facility] (Rec: 06/09/23 15:16 [facility] [id number]) OP Gait Assessment Comments Gait Comments Amb w/sig dec stance on LLE, lat lean to LLE; dec step length RLE step through and amb w/pole on L PT-OP-K Range of Motion Start: 06/09/23 12:58 Freq: Status: Active Protocol: Document 06/09/23 12:58 [facility] (Rec: 06/09/23 15:16 [facility] [id number]) Knee Goniometric Range of Motion Knee Right Flexion Active (degrees) 118 Extension Active (degrees) 5 Left Flexion Active (degrees) 76 Extension Active (degrees) 12 Comments pain PT-OP-M Strength Start: 06/09/23 12:58 Freq: Status: Active Protocol: Document 06/09/23 12:58 [facility] (Rec: 06/09/23 15:16 [facility] [id number]) Hip Strength Hip Manual Muscle Testing Right Flexion (L2) 5 Normal Abduction 4 Good External Rotation 5 Normal Internal Rotation 5 Normal Left Flexion (L2) 3- Fair- Abduction 3+ Fair+ External Rotation 3 Fair Internal Rotation 3+ Fair+ Knee Strength Knee Manual Muscle Testing Right Flexion (S2) 5 Normal Extension (L3) 5 Normal Left Flexion (S2) 3+ Fair+ Extension (L3) 3- Fair- Ankle/Foot Strength Ankle and Foot Manual Muscle Testing Right Dorsiflexion (L4) 5 Normal Plantarflexion (S1) 5 Normal Left Dorsiflexion (L4) 5 Normal Plantarflexion (S1) 5 Normal Comments PF tested seated B PT-OP-Q Treatments Start: 06/09/23 12:58 Freq: Status: Active Protocol: Document 04/09/24 09:08 [facility] (Rec: 07/01/23 11:20 [facility] [id number]) Cardio Equipment Bicycle (Upright) Duration (Minutes) 6 Resistance 7 Seat Position 8 Gym Equipment Shuttle Recovery Unilateral Squats Resistance 25# Shuttle Recovery Platform Stable Reps/Time 15 Bilateral Squats Resistance 62# Shuttle Recovery Platform Stable Reps/Time 20 Shuttle Balance red clips Comments fwd & side: WBOS & NBOS fwd: staggered stance B Therapeutic Exercises Supine Exercises knee flexion with feet on ball Side bilateral Resistance L2 Reps/Minutes 15 Standing Exercises mini squat with band Standing Exercise Name 25% of the way to the chair Side bilateral Resistance level 3 green band Reps/Minutes X10 Manual Therapy Treatment Soft Tissue Mobilization STM left knee Body Location hamstring, quad Mobilization Type Rolling,Strumming Body Position Hooklying Comments knee flex, ext and aaron test Neuro Re-Education Treatment Balance Activities foam Details EC and head turn trials Comments WBOS, NBOS& staggered stance SLS Details with without head turns Reps/Duration B trials Comments Supervision by baldemar PT-OP-T Assessment and Plan Start: 06/09/23 12:58 Freq: Status: Active Protocol: Document 07/01/23 09:08 [facility] (Rec: 07/01/23 11:20 [facility] [id number]) Physical Therapy Assessment Goals strength Short Term Goal (STG) pt will be indep w/HEP STG Duration 07/22/23 Penitentiary Goal (LTG) Pt will score 5/5 on all B LE MMT in order to allow ease w/ typical active lifestyle. LTG Duration 09/01/23 ROM Short Term Goal (STG) Pt will improved L knee AROM to at least 5-100 STG Duration 07/21 Penitentiary Goal (LTG) Pt will have at least 0-125 deg L Knee ROM in order to allow pt to do stairs and squatting down activities. LTG Duration 09/01/23 activity Short Term Goal (STG) pt will be able to go for walks on flat ground up to 1/2 mile w/o inc pain greater than 4/10 STG Duration 07/23/23 Candy Starch Mold Printer Goal (LTG) pt will be able to go for walks on uneven ground/trails for 2 miles w/o inc pain greater than 1/10 LTG Duration 09/01/23 LEFS Impairment 0 Short Term Goal (STG) Pt will be to improve LEFS to at least 35/80 to show improved functional ability. STG Duration 07/23/23 Candy Starch Mold Printer Goal (LTG) Pt will be to improve LEFS to at least 60/80 to show improved functional ability. LTG Duration 09/01/23 Assessment Summary Assessment Pt did well with exercises today w/min c/o pain. He is improving ROM and had 0-114 prior to manual and imrpoved to 119 flex after manual. Cont to encourage pt to ask for help for stability w/boat today and icing. Physical Therapy Plan Frequency and Duration Frequency of Treatment 2x/Week Duration of treatment (weeks) 12 Plan of Care Start Date 06/09/23 Plan of Care End Date 09/01/23 Next Visit Focus/Plan Next Note Type Treatment Note Next Visit Plan bike, advance strength and ROM exercises, manual to improve ROM Add/Focus balance board and unstable surfaces for progression back to fishing
--- NOTE | 2023-07-03 16:19 | PT.OTN ---
Current Diagnoses Unilateral primary osteoarthritis, left knee (07/03/23) Difficulty in walking, not elsewhere classified (07/03/23) Weakness (07/03/23) Physical Therapy Treatment Note PT-OP-A Visit Information Start: 06/09/23 12:58 Freq: Status: Active Protocol: Document 07/03/23 13:00 [facility] (Rec: 07/03/23 13:47 [facility] [id number]) Out-Patient Physical Therapy Visit Information Visit Information Visit Type Treatment Note Visit Note 08/31 Access Code [email or web address] Visit Start Time 01:02 Visit Stop Time 01:43 Visit Number 7 Number of SOFTWARE QUALITY TEST ENGINEER Visits 1 PT-OP-B Current Condition Start: 06/09/23 12:58 Freq: Status: Active Protocol: Document 06/09/23 12:58 [facility] (Rec: 06/09/23 15:16 [facility] [id number]) Current Condition History of Current Condition Onset Date 06/05/23 Current Complaints L UKA History of Current Condition Pt reports he had a menisectomy 45 years ago and was having cortizone shots and was tat the point needed surgery. He is typically really active and wants to get back to that especially this summer. Pt had a partial tear of achilles last fall and is now recovered. Pt reports he is woosy when it comes to pain. Has a trigger finger in left hand. He hasn't been doing exercises besides some general ROM. He has a FWW and elevated toilet seat but hasn' t needed it. HE showered for the first time today besides inc pain. He has a walk in shower. He has been using a hunting cot so he doesn't ahve to go upstairs. He did go upstairs to shower today. meniscectomy done in R knee 2 years ago but still painful Treatment Goals Patient/Caregiver Goals Fishing, crabbing, biking, hiking, work on 5 acre yard and around house PT-OP-C Subjective Start: 06/09/23 12:58 Freq: Status: Active Protocol: Document 07/03/23 13:00 [facility] (Rec: 07/03/23 13:47 [facility] [id number]) OP-PT Subjective Patient Comments Patient Comments Patient reports he was able to launch his boat with help, was able to walk 1.5 miles. AROM left knee 0 to 115 deg. Great toe 5 cm from wall with knee to wall prior to heel off floor left ankle PROM DF. PT-OP-F Manual Assessment Start: 06/09/23 12:58 Freq: Status: Active Protocol: Document 06/09/23 12:58 [facility] (Rec: 06/09/23 15:16 [facility] [id number]) Manual Assessments Other Manual Assessments Other Manual Assessments He took off the surgical dressing yesterday adn changed to what was recommended. He is wearing thigh high compression stockings. mild bruising noted in med quad PT-OP-G Mobility & Gait Start: 06/09/23 12:58 Freq: Status: Active Protocol: Document 06/09/23 12:58 [facility] (Rec: 06/09/23 15:16 [facility] [id number]) OP Gait Assessment Comments Gait Comments Amb w/sig dec stance on LLE, lat lean to LLE; dec step length RLE step through and amb w/pole on L PT-OP-K Range of Motion Start: 06/09/23 12:58 Freq: Status: Active Protocol: Document 06/09/23 12:58 [facility] (Rec: 06/09/23 15:16 [facility] [id number]) Knee Goniometric Range of Motion Knee Right Flexion Active (degrees) 118 Extension Active (degrees) 5 Left Flexion Active (degrees) 76 Extension Active (degrees) 12 Comments pain PT-OP-M Strength Start: 06/09/23 12:58 Freq: Status: Active Protocol: Document 06/09/23 12:58 [facility] (Rec: 06/09/23 15:16 [facility] [id number]) Hip Strength Hip Manual Muscle Testing Right Flexion (L2) 5 Normal Abduction 4 Good External Rotation 5 Normal Internal Rotation 5 Normal Left Flexion (L2) 3- Fair- Abduction 3+ Fair+ External Rotation 3 Fair Internal Rotation 3+ Fair+ Knee Strength Knee Manual Muscle Testing Right Flexion (S2) 5 Normal Extension (L3) 5 Normal Left Flexion (S2) 3+ Fair+ Extension (L3) 3- Fair- Ankle/Foot Strength Ankle and Foot Manual Muscle Testing Right Dorsiflexion (L4) 5 Normal Plantarflexion (S1) 5 Normal Left Dorsiflexion (L4) 5 Normal Plantarflexion (S1) 5 Normal Comments PF tested seated B PT-OP-Q Treatments Start: 06/09/23 12:58 Freq: Status: Active Protocol: Document 07/03/23 13:00 [facility] (Rec: 07/03/23 13:47 [facility] [id number]) Gym Equipment Shuttle Balance red clips Details outside of 4's, stagger stance Comments with mini squat outside of 4's X 10, visual scanning and head turns in stagger stance positions, CGA to minimal and briefly mod assist. 3 min Therapeutic Exercises Supine Exercises heel slides Supine Exercise Name AROM Side left Reps/Minutes X10 Prone Exercises prone quad stretch Prone Exercise Name using opposite LE for overpressure Reps/Minutes 60 sec X 3 Sitting Exercises seated hip abduction with band Side bilateral Equipment Used level 5 band Reps/Minutes one minute X 10, 2X10 without band Comments monitored for pain Standing Exercises squat with band Side bilateral Resistance level 5 band Reps/Minutes X10 2 Comments VC to squat to a depth that does not increase pain calf stretch Standing Exercise Name with knee straight and knee bent Side left Reps/Minutes 1 min each Manual Therapy Treatment Soft Tissue Mobilization STM left knee Body Location scar tissue and quad Mobilization Type Cross-Friction,Rolling Body Position Hooklying Comments prior to quad stretch prone PT-OP-T Assessment and Plan Start: 06/09/23 12:58 Freq: Status: Active Protocol: Document 07/03/23 13:00 [facility] (Rec: 07/03/23 13:47 [facility] [id number]) Physical Therapy Assessment Goals strength Short Term Goal (STG) pt will be indep w/HEP STG Duration 07/22/23 Snf Goal (LTG) Pt will score 5/5 on all B LE MMT in order to allow ease w/ typical active lifestyle. LTG Duration 09/01/23 ROM Short Term Goal (STG) Pt will improved L knee AROM to at least 5-100 STG Duration 07/21 Reconnaissance Man Goal (LTG) Pt will have at least 0-125 deg L Knee ROM in order to allow pt to do stairs and squatting down activities. LTG Duration 09/01/23 activity Short Term Goal (STG) pt will be able to go for walks on flat ground up to 1/2 mile w/o inc pain greater than 4/10 STG Duration 07/23/23 Snf Goal (LTG) pt will be able to go for walks on uneven ground/trails for 2 miles w/o inc pain greater than 1/10 LTG Duration 09/01/23 LEFS Impairment 0 Short Term Goal (STG) Pt will be to improve LEFS to at least 35/80 to show improved functional ability. STG Duration 07/23/23 Snf Goal (LTG) Pt will be to improve LEFS to at least 60/80 to show improved functional ability. LTG Duration 09/01/23 Assessment Summary Assessment AROM left knee flexion to 121 deg post manual therapy and exercise. Patient reports the shuttle balance was easier this session. Physical Therapy Plan Frequency and Duration Frequency of Treatment 2x/Week Duration of treatment (weeks) 12 Plan of Care Start Date 06/09/23 Plan of Care End Date 09/01/23 Next Visit Focus/Plan Next Note Type Treatment Note Next Visit Plan bike, advance strength and ROM exercises, manual to improve ROM Add/Focus balance board and unstable surfaces for progression back to fishing, assess calf strength left LE
--- NOTE | 2023-07-07 14:30 | PT.OTN ---
Current Diagnoses Unilateral primary osteoarthritis, left knee (07/07/23) Difficulty in walking, not elsewhere classified (07/07/23) Weakness (07/07/23) Physical Therapy Treatment Note PT-OP-A Visit Information Start: 06/09/23 12:58 Freq: Status: Active Protocol: Document 07/07/23 13:48 [facility] (Rec: 07/07/23 14:30 [facility] [id number]) Out-Patient Physical Therapy Visit Information Visit Information Visit Type Treatment Note Visit Note 09/30 Access Code [id number] Visit Start Time 13:48 Visit Stop Time 14:29 Visit Number 8 Number of EMPLOYEE OPERATIONS EXAMINER Visits 0 PT-OP-B Current Condition Start: 06/09/23 12:58 Freq: Status: Active Protocol: Document 06/09/23 12:58 [facility] (Rec: 06/09/23 15:16 [facility] [id number]) Current Condition History of Current Condition Onset Date 06/05/23 Current Complaints L UKA History of Current Condition Pt reports he had a menisectomy 45 years ago and was having cortizone shots and was tat the point needed surgery. He is typically really active and wants to get back to that especially this summer. Pt had a partial tear of achilles last fall and is now recovered. Pt reports he is woosy when it comes to pain. Has a trigger finger in left hand. He hasn't been doing exercises besides some general ROM. He has a FWW and elevated toilet seat but hasn' t needed it. HE showered for the first time today besides inc pain. He has a walk in shower. He has been using a hunting cot so he doesn't ahve to go upstairs. He did go upstairs to shower today. meniscectomy done in R knee 2 years ago but still painful Treatment Goals Patient/Caregiver Goals Fishing, crabbing, biking, hiking, work on 5 acre yard and around house PT-OP-C Subjective Start: 06/09/23 12:58 Freq: Status: Active Protocol: Document 07/07/23 13:48 [facility] (Rec: 07/07/23 14:30 [facility] [id number]) OP-PT Subjective Patient Comments Patient Comments Went to a green party sat and was standing for a long period and wandered around and woke up friday and was swollen and quad and knee very painful. He took it easy and iced and its better today but not back to normal. Prior to that was doing a lot friday also. Patient Reported Progress Worse PT-OP-F Manual Assessment Start: 06/09/23 12:58 Freq: Status: Active Protocol: Document 06/09/23 12:58 [facility] (Rec: 06/09/23 15:16 [facility] [id number]) Manual Assessments Other Manual Assessments Other Manual Assessments He took off the surgical dressing yesterday adn changed to what was recommended. He is wearing thigh high compression stockings. mild bruising noted in med quad PT-OP-G Mobility & Gait Start: 06/09/23 12:58 Freq: Status: Active Protocol: Document 06/09/23 12:58 [facility] (Rec: 06/09/23 15:16 [facility] [id number]) OP Gait Assessment Comments Gait Comments Amb w/sig dec stance on LLE, lat lean to LLE; dec step length RLE step through and amb w/pole on L PT-OP-K Range of Motion Start: 06/09/23 12:58 Freq: Status: Active Protocol: Document 07/07/23 13:48 [facility] (Rec: 07/07/23 14:30 [facility] [id number]) Knee Goniometric Range of Motion Knee Left Flexion Active (degrees) 112 Extension Active (degrees) 2 Comments pain PT-OP-M Strength Start: 06/09/23 12:58 Freq: Status: Active Protocol: Document 06/09/23 12:58 [facility] (Rec: 06/09/23 15:16 [facility] [id number]) Hip Strength Hip Manual Muscle Testing Right Flexion (L2) 5 Normal Abduction 4 Good External Rotation 5 Normal Internal Rotation 5 Normal Left Flexion (L2) 3- Fair- Abduction 3+ Fair+ External Rotation 3 Fair Internal Rotation 3+ Fair+ Knee Strength Knee Manual Muscle Testing Right Flexion (S2) 5 Normal Extension (L3) 5 Normal Left Flexion (S2) 3+ Fair+ Extension (L3) 3- Fair- Ankle/Foot Strength Ankle and Foot Manual Muscle Testing Right Dorsiflexion (L4) 5 Normal Plantarflexion (S1) 5 Normal Left Dorsiflexion (L4) 5 Normal Plantarflexion (S1) 5 Normal Comments PF tested seated B PT-OP-Q Treatments Start: 06/09/23 12:58 Freq: Status: Active Protocol: Document 07/07/23 13:48 [facility] (Rec: 07/07/23 14:30 [facility] [id number]) Cardio Equipment Bicycle (Upright) Duration (Minutes) 6 Resistance 8 Seat Position 8 Therapeutic Exercises Sitting Exercises hamstring stretch Sitting Exercise Name in chair fwd lean Side left Reps/Minutes 60 sec Standing Exercises stretches Standing Exercise Name 1. quad on chair Side left Reps/Minutes 30 sec calf stretch Standing Exercise Name with knee straight and knee bent Side left Reps/Minutes 1 min each TKE Standing Exercise Name staggered stance Side left Equipment Used L3 Reps/Minutes 2 sec x10 heel raises Standing Exercise Name SL Side left Reps/Minutes 10 Comments noted some inc pain Manual Therapy Treatment Soft Tissue Mobilization STM left knee Body Location scar tissue and quad Mobilization Type Cross-Friction,Rolling Body Position Hooklying Joint Mobilizations tibfem Comments PA FM tibfib Comments proximal fib PA FM patellofemoral Joint sup, inf, med PT-OP-T Assessment and Plan Start: 06/09/23 12:58 Freq: Status: Active Protocol: Document 07/07/23 13:48 [facility] (Rec: 07/07/23 14:30 [facility] [id number]) Physical Therapy Assessment Goals strength Short Term Goal (STG) pt will be indep w/HEP STG Duration achieved advancing as able Penitentiary Goal (LTG) Pt will score 5/5 on all B LE MMT in order to allow ease w/ typical active lifestyle. LTG Duration 09/01/23 ROM Short Term Goal (STG) Pt will improved L knee AROM to at least 5-100 STG Duration achieved Penitentiary Goal (LTG) Pt will have at least 0-125 deg L Knee ROM in order to allow pt to do stairs and squatting down activities. LTG Duration 09/01/23 activity Short Term Goal (STG) pt will be able to go for walks on flat ground up to 1/2 mile w/o inc pain greater than 4/10 STG Duration achieved Room Service Bellhop Goal (LTG) pt will be able to go for walks on uneven ground/trails for 2 miles w/o inc pain greater than 1/10 LTG Duration 09/01/23 LEFS Impairment 0 Short Term Goal (STG) Pt will be to improve LEFS to at least 35/80 to show improved functional ability. STG Duration 5/1/24 Penitentiary Goal (LTG) Pt will be to improve LEFS to at least 60/80 to show improved functional ability. LTG Duration 09/01/23 Assessment Summary Assessment pt presented w/2-112 and after manual improved to 121 flex. He presented limping today w/ dec knee flex during gait and dec stance time. After manual, gait pattern imrpoved also. instructed to do gentle stretching the next couple days and call doctor if pain worsens or has issues w/WB Physical Therapy Plan Frequency and Duration Frequency of Treatment 2x/Week Duration of treatment (weeks) 12 Plan of Care Start Date 06/09/23 Plan of Care End Date 09/01/23 Therapeutic Interventions Therapeutic Interventions Balance Training,Gait Training ,Home Exercise Program,Joint Mobilizations,Manual Therapy, Neuromuscular Re-education, Orthotic/Prosthetic Management ,Patient/Caregiver Education, Self-Care/Home Management,Soft Tissue Mobilization,Taping, Therapeutic Activities, Therapeutic Exercises Modalities Cold Pack/Ice Massage,Electric Stimulation,Hot Packs, Ultrasound Next Visit Focus/Plan Next Note Type Progress Note Next Visit Plan bike, advance strength and ROM exercises, manual to improve ROM Add/Focus balance board and unstable surfaces for progression back to fishing, assess calf strength left LE
--- NOTE | 2023-07-10 10:32 | PT.OTN ---
Current Diagnoses Unilateral primary osteoarthritis, left knee (07/10/23) Difficulty in walking, not elsewhere classified (07/10/23) Weakness (07/10/23) Physical Therapy Treatment Note PT-OP-A Visit Information Start: 06/09/23 12:58 Freq: Status: Active Protocol: Document 07/10/23 09:52 [facility] (Rec: 07/10/23 10:32 [facility] [id number]) Out-Patient Physical Therapy Visit Information Visit Information Visit Type Progress Note Visit Note 04/02 Access Code [email or web address] Visit Start Time 09:49 Visit Stop Time 10:29 Visit Number 9 Number of NATURAL GAS TRADER Visits 0 PT-OP-B Current Condition Start: 06/09/23 12:58 Freq: Status: Active Protocol: Document 06/09/23 12:58 [facility] (Rec: 06/09/23 15:16 [facility] [id number]) Current Condition History of Current Condition Onset Date 06/05/23 Current Complaints L UKA History of Current Condition Pt reports he had a menisectomy 45 years ago and was having cortizone shots and was tat the point needed surgery. He is typically really active and wants to get back to that especially this summer. Pt had a partial tear of achilles last fall and is now recovered. Pt reports he is woosy when it comes to pain. Has a trigger finger in left hand. He hasn't been doing exercises besides some general ROM. He has a FWW and elevated toilet seat but hasn' t needed it. HE showered for the first time today besides inc pain. He has a walk in shower. He has been using a hunting cot so he doesn't ahve to go upstairs. He did go upstairs to shower today. meniscectomy done in R knee 2 years ago but still painful Treatment Goals Patient/Caregiver Goals Fishing, crabbing, biking, hiking, work on 5 acre yard and around house PT-OP-C Subjective Start: 06/09/23 12:58 Freq: Status: Active Protocol: Document 07/10/23 09:52 [facility] (Rec: 07/10/23 10:32 [facility] [id number]) OP-PT Subjective Patient Comments Patient Comments Pt reports sees doctor wed. Pain still in sup quad. He called doctor and they didn't seem concerned. pt reports he plans to get in his hot tub tonight PT-OP-F Manual Assessment Start: 06/09/23 12:58 Freq: Status: Active Protocol: Document 06/09/23 12:58 [facility] (Rec: 06/09/23 15:16 [facility] [id number]) Manual Assessments Other Manual Assessments Other Manual Assessments He took off the surgical dressing yesterday adn changed to what was recommended. He is wearing thigh high compression stockings. mild bruising noted in med quad PT-OP-G Mobility & Gait Start: 06/09/23 12:58 Freq: Status: Active Protocol: Document 06/09/23 12:58 [facility] (Rec: 06/09/23 15:16 [facility] [id number]) OP Gait Assessment Comments Gait Comments Amb w/sig dec stance on LLE, lat lean to LLE; dec step length RLE step through and amb w/pole on L PT-OP-K Range of Motion Start: 06/09/23 12:58 Freq: Status: Active Protocol: Document 07/10/23 09:52 [facility] (Rec: 07/10/23 10:32 [facility] [id number]) Knee Goniometric Range of Motion Knee Left Flexion Active (degrees) 117 Extension Active (degrees) 0 Comments pain PT-OP-M Strength Start: 06/09/23 12:58 Freq: Status: Active Protocol: Document 07/10/23 09:52 [facility] (Rec: 07/10/23 10:32 [facility] [id number]) Hip Strength Hip Manual Muscle Testing Right Flexion (L2) 5 Normal Extension (S1) 5 Normal Abduction 5 Normal Adduction 4+ Good+ External Rotation 5 Normal Internal Rotation 5 Normal Left Flexion (L2) 5 Normal Extension (S1) 3+ Fair+ Abduction 4+ Good+ Adduction 4+ Good+ External Rotation 5 Normal Internal Rotation 5 Normal Knee Strength Knee Manual Muscle Testing Right Flexion (S2) 5 Normal Extension (L3) 5 Normal Left Flexion (S2) 4+ Good+ Extension (L3) 4+ Good+ Ankle/Foot Strength Ankle and Foot Manual Muscle Testing Right Dorsiflexion (L4) 5 Normal Plantarflexion (S1) 5 Normal Comments 20 heel raises Left Dorsiflexion (L4) 5 Normal Plantarflexion (S1) 4 Good Comments 11 heel raises-pain in quad PT-OP-Q Treatments Start: 06/09/23 12:58 Freq: Status: Active Protocol: Document 07/10/23 09:52 [facility] (Rec: 07/10/23 10:32 [facility] [id number]) Therapeutic Exercises Supine Exercises bridge Side bilateral Reps/Minutes 30 sec x4 SAQ Side left Equipment Used 4# Reps/Minutes 10x5 sec Prone Exercises hip ext Side left Reps/Minutes 8 Comments pain noted Manual Therapy Treatment Soft Tissue Mobilization STM left knee Body Location scar tissue and quad & HS Mobilization Type Cross-Friction,Rolling Body Position Hooklying Comments w/flex/ext Joint Mobilizations tibfem Comments PA FM & AP femur FM tibfib Comments proximal fib PA FM patellofemoral Joint sup, inf, med PT-OP-T Assessment and Plan Start: 06/09/23 12:58 Freq: Status: Active Protocol: Document 07/10/23 09:52 [facility] (Rec: 07/10/23 10:32 [facility] [id number]) Physical Therapy Assessment Goals strength Short Term Goal (STG) pt will be indep w/HEP STG Duration achieved advancing as able Glue Maker Bone Goal (LTG) Pt will score 5/5 on all B LE MMT in order to allow ease w/ typical active lifestyle. 07/09-improving LTG Duration 09/01/23 ROM Short Term Goal (STG) Pt will improved L knee AROM to at least 5-100 STG Duration achieved Usp Goal (LTG) Pt will have at least 0-125 deg L Knee ROM in order to allow pt to do stairs and squatting down activities. LTG Duration 09/01/23 activity Short Term Goal (STG) pt will be able to go for walks on flat ground up to 1/2 mile w/o inc pain greater than 4/10 STG Duration achieved Usp Goal (LTG) pt will be able to go for walks on uneven ground/trails for 2 miles w/o inc pain greater than 1/10 LTG Duration 09/01/23 LEFS Impairment 0 Short Term Goal (STG) Pt will be to improve LEFS to at least 35/80 to show improved functional ability. STG Duration achieved to 36 Usp Goal (LTG) Pt will be to improve LEFS to at least 60/80 to show improved functional ability. LTG Duration 09/01/23 Assessment Summary Assessment PT cont to improve ROM w/0-117 present after exercise and improved to 124 flex. he cont to have dec terminal ext strength. Physical Therapy Plan Frequency and Duration Frequency of Treatment 2x/Week Duration of treatment (weeks) 12 Plan of Care Start Date 06/09/23 Plan of Care End Date 09/01/23 Therapeutic Interventions Therapeutic Interventions Balance Training,Gait Training ,Home Exercise Program,Joint Mobilizations,Manual Therapy, Neuromuscular Re-education, Orthotic/Prosthetic Management ,Patient/Caregiver Education, Self-Care/Home Management,Soft Tissue Mobilization,Taping, Therapeutic Activities, Therapeutic Exercises Modalities Cold Pack/Ice Massage,Electric Stimulation,Hot Packs, Ultrasound Next Visit Focus/Plan Next Note Type Progress Note Next Visit Plan bike, advance strength and ROM exercises, manual to improve ROM Add/Focus balance board and unstable surfaces for progression back to fishing, assess calf strength left LE
--- NOTE | 2023-07-15 08:20 | PT.OTN ---
Current Diagnoses Unilateral primary osteoarthritis, left knee (07/15/23) Difficulty in walking, not elsewhere classified (07/15/23) Weakness (07/15/23) Physical Therapy Treatment Note PT-OP-A Visit Information Start: 06/09/23 12:58 Freq: Status: Active Protocol: Document 07/15/23 07:34 [facility] (Rec: 07/15/23 08:20 [facility] [id number]) Out-Patient Physical Therapy Visit Information Visit Information Visit Type Treatment Note Visit Note 05/03 Access Code [email or web address] Visit Start Time 07:32 Visit Stop Time 08:13 Visit Number 10 Number of DIRECTOR LEARNING SERVICES Visits 0 PT-OP-B Current Condition Start: 06/09/23 12:58 Freq: Status: Active Protocol: Document 06/09/23 12:58 [facility] (Rec: 06/09/23 15:16 [facility] [id number]) Current Condition History of Current Condition Onset Date 06/05/23 Current Complaints L UKA History of Current Condition Pt reports he had a menisectomy 45 years ago and was having cortizone shots and was tat the point needed surgery. He is typically really active and wants to get back to that especially this summer. Pt had a partial tear of achilles last fall and is now recovered. Pt reports he is woosy when it comes to pain. Has a trigger finger in left hand. He hasn't been doing exercises besides some general ROM. He has a FWW and elevated toilet seat but hasn' t needed it. HE showered for the first time today besides inc pain. He has a walk in shower. He has been using a hunting cot so he doesn't ahve to go upstairs. He did go upstairs to shower today. meniscectomy done in R knee 2 years ago but still painful Treatment Goals Patient/Caregiver Goals Fishing, crabbing, biking, hiking, work on 5 acre yard and around house PT-OP-C Subjective Start: 06/09/23 12:58 Freq: Status: Active Protocol: Document 07/15/23 07:34 [facility] (Rec: 07/15/23 08:20 [facility] [id number]) OP-PT Subjective Patient Comments Patient Comments pt reports sore after last ession w/mmt etc. He has been stretching mostly and did yard work. Pain dec fri, sat friday. PT-OP-F Manual Assessment Start: 06/09/23 12:58 Freq: Status: Active Protocol: Document 06/09/23 12:58 [facility] (Rec: 06/09/23 15:16 [facility] [id number]) Manual Assessments Other Manual Assessments Other Manual Assessments He took off the surgical dressing yesterday adn changed to what was recommended. He is wearing thigh high compression stockings. mild bruising noted in med quad PT-OP-G Mobility & Gait Start: 06/09/23 12:58 Freq: Status: Active Protocol: Document 06/09/23 12:58 [facility] (Rec: 06/09/23 15:16 [facility] [id number]) OP Gait Assessment Comments Gait Comments Amb w/sig dec stance on LLE, lat lean to LLE; dec step length RLE step through and amb w/pole on L PT-OP-K Range of Motion Start: 06/09/23 12:58 Freq: Status: Active Protocol: Document 07/10/23 09:52 [facility] (Rec: 07/10/23 10:32 [facility] [id number]) Knee Goniometric Range of Motion Knee Left Flexion Active (degrees) 117 Extension Active (degrees) 0 Comments pain PT-OP-M Strength Start: 06/09/23 12:58 Freq: Status: Active Protocol: Document 07/10/23 09:52 [facility]10[id number] Hip Strength Hip Manual Muscle Testing Right Flexion (L2) 5 Normal Extension (S1) 5 Normal Abduction 5 Normal Adduction 4+ Good+ External Rotation 5 Normal Internal Rotation 5 Normal Left Flexion (L2) 5 Normal Extension (S1) 3+ Fair+ Abduction 4+ Good+ Adduction 4+ Good+ External Rotation 5 Normal Internal Rotation 5 Normal Knee Strength Knee Manual Muscle Testing Right Flexion (S2) 5 Normal Extension (L3) 5 Normal Left Flexion (S2) 4+ Good+ Extension (L3) 4+ Good+ Ankle/Foot Strength Ankle and Foot Manual Muscle Testing Right Dorsiflexion (L4) 5 Normal Plantarflexion (S1) 5 Normal Comments 20 heel raises Left Dorsiflexion (L4) 5 Normal Plantarflexion (S1) 4 Good Comments 11 heel raises-pain in quad PT-OP-Q Treatments Start: 06/09/23 12:58 Freq: Status: Active Protocol: Document 07/15/23 07:34 [facility] (Rec: 07/15/23 08:20 [facility] [id number]) Cardio Equipment Bicycle (Upright) Duration (Minutes) 6 Resistance 9 Seat Position 8 Therapeutic Exercises Supine Exercises stretch Supine Exercise Name 1. piriformis 2. figure 4 3. SKTC Side left Reps/Minutes 1 min ea bridge Side bilateral Reps/Minutes 20 sec x3 Manual Therapy Treatment Soft Tissue Mobilization STM left knee Body Location scar tissue and ITB & HS Mobilization Type Rolling Body Position Hooklying Comments w/flex/ext Joint Mobilizations tibfem Comments PA FM patellofemoral Joint sup, inf, med PT-OP-T Assessment and Plan Start: 06/09/23 12:58 Freq: Status: Active Protocol: Document 07/15/23 07:34 [facility] (Rec: 07/15/23 08:20 [facility] [id number]) Physical Therapy Assessment Goals strength Short Term Goal (STG) pt will be indep w/HEP STG Duration achieved advancing as able Long-Term Goal (LTG) Pt will score 5/5 on all B LE MMT in order to allow ease w/ typical active lifestyle. 07/09-improving LTG Duration 09/01/23 ROM Short Term Goal (STG) Pt will improved L knee AROM to at least 5-100 STG Duration achieved Carding Utility Tender Goal (LTG) Pt will have at least 0-125 deg L Knee ROM in order to allow pt to do stairs and squatting down activities. LTG Duration 09/01/23 activity Short Term Goal (STG) pt will be able to go for walks on flat ground up to 1/2 mile w/o inc pain greater than 4/10 STG Duration achieved Long-Term Goal (LTG) pt will be able to go for walks on uneven ground/trails for 2 miles w/o inc pain greater than 1/10 LTG Duration 09/01/23 LEFS Impairment 0 Short Term Goal (STG) Pt will be to improve LEFS to at least 35/80 to show improved functional ability. STG Duration achieved to 36 Long-Term Goal (LTG) Pt will be to improve LEFS to at least 60/80 to show improved functional ability. LTG Duration 09/01/23 Assessment Summary Assessment Pt tolerating more activity at this time and had good response to stretching activties. He is to cont these . Physical Therapy Plan Frequency and Duration Frequency of Treatment 2x/Week Duration of treatment (weeks) 12 Plan of Care Start Date 06/09/23 Plan of Care End Date 09/01/23 Next Visit Focus/Plan Next Note Type Treatment Note Next Visit Plan resume strength and review mobility exercises
--- NOTE | 2023-07-17 13:48 | PT.OTN ---
Current Diagnoses Unilateral primary osteoarthritis, left knee (07/17/23) Difficulty in walking, not elsewhere classified (07/17/23) Weakness (07/17/23) Physical Therapy Treatment Note PT-OP-A Visit Information Start: 06/09/23 12:58 Freq: Status: Active Protocol: Document 07/17/23 13:04 [facility] (Rec: 07/17/23 13:48 [facility] [id number]) Out-Patient Physical Therapy Visit Information Visit Information Visit Type Treatment Note Visit Note 05/31 Access Code [email or web address] Visit Start Time 13:02 Visit Stop Time 13:42 Visit Number 11 Number of BASEBALL SEWER HAND Visits 0 PT-OP-B Current Condition Start: 06/09/23 12:58 Freq: Status: Active Protocol: Document 06/09/23 12:58 [facility] (Rec: 06/09/23 15:16 [facility] [id number]) Current Condition History of Current Condition Onset Date 06/05/23 Current Complaints L UKA History of Current Condition Pt reports he had a menisectomy 45 years ago and was having cortizone shots and was tat the point needed surgery. He is typically really active and wants to get back to that especially this summer. Pt had a partial tear of achilles last fall and is now recovered. Pt reports he is woosy when it comes to pain. Has a trigger finger in left hand. He hasn't been doing exercises besides some general ROM. He has a FWW and elevated toilet seat but hasn' t needed it. HE showered for the first time today besides inc pain. He has a walk in shower. He has been using a hunting cot so he doesn't ahve to go upstairs. He did go upstairs to shower today. meniscectomy done in R knee 2 years ago but still painful Treatment Goals Patient/Caregiver Goals Fishing, crabbing, biking, hiking, work on 5 acre yard and around house PT-OP-C Subjective Start: 06/09/23 12:58 Freq: Status: Active Protocol: Document 07/17/23 13:04 [facility] (Rec: 07/17/23 13:48 [facility] [id number]) OP-PT Subjective Patient Comments Patient Comments Pt reports his appt went well and doctor was pleased. He can't ride his bike unitl 6 weeks incase of fall. did a lot of gardening the past couple days PT-OP-F Manual Assessment Start: 06/09/23 12:58 Freq: Status: Active Protocol: Document 06/09/23 12:58 [facility] (Rec: 06/09/23 15:16 [facility] [id number]) Manual Assessments Other Manual Assessments Other Manual Assessments He took off the surgical dressing yesterday adn changed to what was recommended. He is wearing thigh high compression stockings. mild bruising noted in med quad PT-OP-G Mobility & Gait Start: 06/09/23 12:58 Freq: Status: Active Protocol: Document 06/09/23 12:58 [facility] (Rec: 06/09/23 15:16 [facility] [id number]) OP Gait Assessment Comments Gait Comments Amb w/sig dec stance on LLE, lat lean to LLE; dec step length RLE step through and amb w/pole on L PT-OP-K Range of Motion Start: 06/09/23 12:58 Freq: Status: Active Protocol: Document 07/10/23 09:52 [facility] (Rec: 07/10/23 10:32 [facility] [id number]) Knee Goniometric Range of Motion Knee Left Flexion Active (degrees) 117 Extension Active (degrees) 0 Comments pain PT-OP-M Strength Start: 06/09/23 12:58 Freq: Status: Active Protocol: Document 07/10/23 09:52 [facility] (Rec: 07/10/23 10:32 [facility] [id number]) Hip Strength Hip Manual Muscle Testing Right Flexion (L2) 5 Normal Extension (S1) 5 Normal Abduction 5 Normal Adduction 4+ Good+ External Rotation 5 Normal Internal Rotation 5 Normal Left Flexion (L2) 5 Normal Extension (S1) 3+ Fair+ Abduction 4+ Good+ Adduction 4+ Good+ External Rotation 5 Normal Internal Rotation 5 Normal Knee Strength Knee Manual Muscle Testing Right Flexion (S2) 5 Normal Extension (L3) 5 Normal Left Flexion (S2) 4+ Good+ Extension (L3) 4+ Good+ Ankle/Foot Strength Ankle and Foot Manual Muscle Testing Right Dorsiflexion (L4) 5 Normal Plantarflexion (S1) 5 Normal Comments 20 heel raises Left Dorsiflexion (L4) 5 Normal Plantarflexion (S1) 4 Good Comments 11 heel raises-pain in quad PT-OP-Q Treatments Start: 06/09/23 12:58 Freq: Status: Active Protocol: Document 07/17/23 13:04 [facility] (Rec: 07/17/23 13:48 [facility] [id number]) Cardio Equipment Bicycle (Upright) Duration (Minutes) 6 Resistance 9 Seat Position 8 Gym Equipment Shuttle Balance red clips Details head turns Comments fwd & side: WBOS & NBOS fwd:staggered stance B Therapeutic Exercises Standing Exercises step down Side left Equipment Used 4 in step Reps/Minutes 12 Comments cues control squat with band Side bilateral Equipment Used lvl 3 Reps/Minutes 2x10 Comments VC to squat to a depth that does not increase pain calf stretch Standing Exercise Name stair gastroc Side bilateral Reps/Minutes 1 min each step ups Standing Exercise Name 1.fwd step up/back down 2.lat up/down Side left Equipment Used 6 in rail prn Reps/Minutes 12 ea Comments cues control Manual Therapy Treatment Soft Tissue Mobilization STM left knee Body Location scar tissue Mobilization Type Rolling Body Position Hooklying Comments w/flex/ext Joint Mobilizations tibfem Comments PA FM tibfib Comments proximal fib PA FM patellofemoral Joint sup, inf, med Neuro Re-Education Treatment Balance Activities bosu Comments 1. step up x10 L-rail prn SLS Comments 1. on firm B 2. on foam B 3. Y reach SL B x3 PT-OP-T Assessment and Plan Start: 06/09/23 12:58 Freq: Status: Active Protocol: Document 07/17/23 13:04 [facility] (Rec: 07/17/23 13:48 [facility] [id number]) Physical Therapy Assessment Goals strength Short Term Goal (STG) pt will be indep w/HEP STG Duration achieved advancing as able Long-Term Goal (LTG) Pt will score 5/5 on all B LE MMT in order to allow ease w/ typical active lifestyle. 07/09-improving LTG Duration 09/01/23 ROM Short Term Goal (STG) Pt will improved L knee AROM to at least 5-100 STG Duration achieved Class C Driver Goal (LTG) Pt will have at least 0-125 deg L Knee ROM in order to allow pt to do stairs and squatting down activities. LTG Duration 09/01/23 activity Short Term Goal (STG) pt will be able to go for walks on flat ground up to 1/2 mile w/o inc pain greater than 4/10 STG Duration achieved Class C Driver Goal (LTG) pt will be able to go for walks on uneven ground/trails for 2 miles w/o inc pain greater than 1/10 LTG Duration 09/01/23 LEFS Impairment 0 Short Term Goal (STG) Pt will be to improve LEFS to at least 35/80 to show improved functional ability. STG Duration achieved to 36 Class C Driver Goal (LTG) Pt will be to improve LEFS to at least 60/80 to show improved functional ability. LTG Duration 09/01/23 Assessment Summary Assessment Pt did well with resume w/ strengthening exercises and balance activities. Difficulty and some pain noted w/Y reaches w/o knee bending. He does need cues for control w/ decent down stairs Physical Therapy Plan Frequency and Duration Frequency of Treatment 2x/Week Duration of treatment (weeks) 12 Plan of Care Start Date 06/09/23 Plan of Care End Date 09/01/23 Next Visit Focus/Plan Next Note Type Treatment Note Next Visit Plan cont to advance strength and balance
--- NOTE | 2023-07-21 14:38 | PT.OTN ---
Current Diagnoses Unilateral primary osteoarthritis, left knee (07/21/23) Difficulty in walking, not elsewhere classified (07/21/23) Weakness (07/21/23) Physical Therapy Treatment Note PT-OP-A Visit Information Start: 06/09/23 12:58 Freq: Status: Active Protocol: Document 07/21/23 12:41 AB (Rec: 07/21/23 14:38 AB [id number]) Out-Patient Physical Therapy Visit Information Visit Information Visit Type Treatment Note Visit Note 05/31 Access Code [email or web address] Visit Start Time 13:00 Visit Stop Time 13:45 Visit Number 12 Number of CELLAR PACKER Visits 1 PT-OP-B Current Condition Start: 06/09/23 12:58 Freq: Status: Active Protocol: Document 06/09/23 12:58 [facility] (Rec: 06/09/23 15:16 [facility] [id number]) Current Condition History of Current Condition Onset Date 06/05/23 Current Complaints L UKA History of Current Condition Pt reports he had a menisectomy 45 years ago and was having cortizone shots and was tat the point needed surgery. He is typically really active and wants to get back to that especially this summer. Pt had a partial tear of achilles last fall and is now recovered. Pt reports he is woosy when it comes to pain. Has a trigger finger in left hand. He hasn't been doing exercises besides some general ROM. He has a FWW and elevated toilet seat but hasn' t needed it. HE showered for the first time today besides inc pain. He has a walk in shower. He has been using a hunting cot so he doesn't ahve to go upstairs. He did go upstairs to shower today. meniscectomy done in R knee 2 years ago but still painful Treatment Goals Patient/Caregiver Goals Fishing, crabbing, biking, hiking, work on 5 acre yard and around house PT-OP-C Subjective Start: 06/09/23 12:58 Freq: Status: Active Protocol: Document 07/21/23 12:41 AB (Rec: 07/21/23 14:38 AB [id number]) OP-PT Subjective Patient Comments Patient Comments Patient reports that he tweaked the knee this morning, walking to the bathroom, comments the knee is swollen. AROM 0 to 122 deg noted area of swelling lateral left knee proximal to joint line PT-OP-F Manual Assessment Start: 06/09/23 12:58 Freq: Status: Active Protocol: Document 06/09/23 12:58 [facility] (Rec: 06/09/23 15:16 [facility] [id number]) Manual Assessments Other Manual Assessments Other Manual Assessments He took off the surgical dressing yesterday adn changed to what was recommended. He is wearing thigh high compression stockings. mild bruising noted in med quad PT-OP-G Mobility & Gait Start: 06/09/23 12:58 Freq: Status: Active Protocol: Document 06/09/23 12:58 [facility] (Rec: 06/09/23 15:16 [facility] [id number]) OP Gait Assessment Comments Gait Comments Amb w/sig dec stance on LLE, lat lean to LLE; dec step length RLE step through and amb w/pole on L PT-OP-K Range of Motion Start: 06/09/23 12:58 Freq: Status: Active Protocol: Document 07/10/23 09:52 [facility] (Rec: 07/10/23 10:32 [facility] [id number]) Knee Goniometric Range of Motion Knee Left Flexion Active (degrees) 117 Extension Active (degrees) 0 Comments pain PT-OP-M Strength Start: 06/09/23 12:58 Freq: Status: Active Protocol: Document 07/10/23 09:52 [facility] (Rec: 07/10/23 10:32 [facility] [id number]) Hip Strength Hip Manual Muscle Testing Right Flexion (L2) 5 Normal Extension (S1) 5 Normal Abduction 5 Normal Adduction 4+ Good+ External Rotation 5 Normal Internal Rotation 5 Normal Left Flexion (L2) 5 Normal Extension (S1) 3+ Fair+ Abduction 4+ Good+ Adduction 4+ Good+ External Rotation 5 Normal Internal Rotation 5 Normal Knee Strength Knee Manual Muscle Testing Right Flexion (S2) 5 Normal Extension (L3) 5 Normal Left Flexion (S2) 4+ Good+ Extension (L3) 4+ Good+ Ankle/Foot Strength Ankle and Foot Manual Muscle Testing Right Dorsiflexion (L4) 5 Normal Plantarflexion (S1) 5 Normal Comments 20 heel raises Left Dorsiflexion (L4) 5 Normal Plantarflexion (S1) 4 Good Comments 11 heel raises-pain in quad PT-OP-Q Treatments Start: 06/09/23 12:58 Freq: Status: Active Protocol: Document 07/21/23 12:41 AB (Rec: 07/21/23 14:38 AB [id number]) Therapeutic Exercises Supine Exercises knee flexion with feet on ball Side bilateral Reps/Minutes 2 minutes Sitting Exercises seated hip abduction with band Side bilateral Equipment Used level 5 band Reps/Minutes one minute X 1, 2X10 without band Comments monitored for pain Standing Exercises glute med isometric Side bilateral Reps/Minutes one minute X 30 to 35 sec each LE Comments Verbal and visual cues mini squat with band Standing Exercise Name 25% of the way to the chair Side bilateral Resistance level 3 green band Reps/Minutes X10 Therapeutic Activity Therapeutic Activity stair training Reps/Minutes 4 steps X X 3( 6 inch steps ) Comments Verbal and visual cues for descending stairs with a less quad dominant pattern, monitored for pain Manual Therapy Treatment Soft Tissue Mobilization STM left knee Body Location Scar tissue and for swelling Mobilization Type Cross-Friction,Rolling,Other Body Position Hooklying Joint Mobilizations patellofemoral Joint sup, inf, med Taping Patellar taping Body Location left knee Treatment Focus unload fat pad and track medially Type of Tape Leukotape and coverroll Skin Inspection WNL PT-OP-T Assessment and Plan Start: 06/09/23 12:58 Freq: Status: Active Protocol: Document 07/21/23 12:41 AB (Rec: 07/21/23 14:38 AB [id number]) Physical Therapy Assessment Goals strength Short Term Goal (STG) pt will be indep w/HEP STG Duration achieved advancing as able Student Affairs Dean Goal (LTG) Pt will score 5/5 on all B LE MMT in order to allow ease w/ typical active lifestyle. 07/09-improving LTG Duration 09/01/23 ROM Short Term Goal (STG) Pt will improved L knee AROM to at least 5-100 STG Duration achieved Half-Way Goal (LTG) Pt will have at least 0-125 deg L Knee ROM in order to allow pt to do stairs and squatting down activities. LTG Duration 09/01/23 activity Short Term Goal (STG) pt will be able to go for walks on flat ground up to 1/2 mile w/o inc pain greater than 4/10 STG Duration achieved Half-Way Goal (LTG) pt will be able to go for walks on uneven ground/trails for 2 miles w/o inc pain greater than 1/10 LTG Duration 09/01/23 LEFS Impairment 0 Short Term Goal (STG) Pt will be to improve LEFS to at least 35/80 to show improved functional ability. STG Duration achieved to 36 Half-Way Goal (LTG) Pt will be to improve LEFS to at least 60/80 to show improved functional ability. LTG Duration 09/01/23 Assessment Summary Assessment Giuliano reports the knee feels better than when he came in. Giuliano able to descend stairs with a less quad dominant pattern and reports of decreased pain, and less pain descending stairs post taping. Physical Therapy Plan Frequency and Duration Frequency of Treatment 2x/Week Duration of treatment (weeks) 12 Plan of Care Start Date 06/09/23 Plan of Care End Date 09/01/23 Next Visit Focus/Plan Next Note Type Treatment Note Next Visit Plan cont to advance strength and balance
--- NOTE | 2023-07-24 13:47 | PT.OTN ---
Current Diagnoses Unilateral primary osteoarthritis, left knee (07/24/23) Difficulty in walking, not elsewhere classified (07/24/23) Weakness (07/24/23) Physical Therapy Treatment Note PT-OP-A Visit Information Start: 06/09/23 12:58 Freq: Status: Active Protocol: Document 07/24/23 13:05 [facility] (Rec: 07/24/23 13:46 [facility] [id number]) Out-Patient Physical Therapy Visit Information Visit Information Visit Type Treatment Note Visit Note 07/01 Access Code [email or web address] Visit Start Time 13:01 Visit Stop Time 13:42 Visit Number 13 Number of ONLINE JOURNALIST Visits 0 PT-OP-B Current Condition Start: 06/09/23 12:58 Freq: Status: Active Protocol: Document 06/09/23 12:58 [facility] (Rec: 06/09/23 15:16 [facility] [id number]) Current Condition History of Current Condition Onset Date 06/05/23 Current Complaints L UKA History of Current Condition Pt reports he had a menisectomy 45 years ago and was having cortizone shots and was tat the point needed surgery. He is typically really active and wants to get back to that especially this summer. Pt had a partial tear of achilles last fall and is now recovered. Pt reports he is woosy when it comes to pain. Has a trigger finger in left hand. He hasn't been doing exercises besides some general ROM. He has a FWW and elevated toilet seat but hasn' t needed it. HE showered for the first time today besides inc pain. He has a walk in shower. He has been using a hunting cot so he doesn't ahve to go upstairs. He did go upstairs to shower today. meniscectomy done in R knee 2 years ago but still painful Treatment Goals Patient/Caregiver Goals Fishing, crabbing, biking, hiking, work on 5 acre yard and around house PT-OP-C Subjective Start: 06/09/23 12:58 Freq: Status: Active Protocol: Document 07/24/23 13:05 [facility] (Rec: 07/24/23 13:46 [facility] [id number]) OP-PT Subjective Patient Comments Patient Comments Tape only lasted one day but it really helped. He walked [address] and felt okay. PT-OP-F Manual Assessment Start: 06/09/23 12:58 Freq: Status: Active Protocol: Document 06/09/23 12:58 [facility] (Rec: 06/09/23 15:16 [facility] [id number]) Manual Assessments Other Manual Assessments Other Manual Assessments He took off the surgical dressing yesterday adn changed to what was recommended. He is wearing thigh high compression stockings. mild bruising noted in med quad PT-OP-G Mobility & Gait Start: 06/09/23 12:58 Freq: Status: Active Protocol: Document 06/09/23 12:58 [facility] (Rec: 06/09/23 15:16 [facility] [id number]) OP Gait Assessment Comments Gait Comments Amb w/sig dec stance on LLE, lat lean to LLE; dec step length RLE step through and amb w/pole on L PT-OP-K Range of Motion Start: 06/09/23 12:58 Freq: Status: Active Protocol: Document 07/10/23 09:52 [facility] (Rec: 07/10/23 10:32 [facility] [id number]) Knee Goniometric Range of Motion Knee Left Flexion Active (degrees) 117 Extension Active (degrees) 0 Comments pain PT-OP-M Strength Start: 06/09/23 12:58 Freq: Status: Active Protocol: Document 07/10/23 09:52 [facility] (Rec: 07/10/23 10:32 [facility] [id number]) Hip Strength Hip Manual Muscle Testing Right Flexion (L2) 5 Normal Extension (S1) 5 Normal Abduction 5 Normal Adduction 4+ Good+ External Rotation 5 Normal Internal Rotation 5 Normal Left Flexion (L2) 5 Normal Extension (S1) 3+ Fair+ Abduction 4+ Good+ Adduction 4+ Good+ External Rotation 5 Normal Internal Rotation 5 Normal Knee Strength Knee Manual Muscle Testing Right Flexion (S2) 5 Normal Extension (L3) 5 Normal Left Flexion (S2) 4+ Good+ Extension (L3) 4+ Good+ Ankle/Foot Strength Ankle and Foot Manual Muscle Testing Right Dorsiflexion (L4) 5 Normal Plantarflexion (S1) 5 Normal Comments 20 heel raises Left Dorsiflexion (L4) 5 Normal Plantarflexion (S1) 4 Good Comments 11 heel raises-pain in quad PT-OP-Q Treatments Start: 06/09/23 12:58 Freq: Status: Active Protocol: Document 07/24/23 13:05 [facility] (Rec: 07/24/23 13:46 [facility] [id number]) Cardio Equipment Bicycle (Upright) Duration (Minutes) 6 Resistance 9 Seat Position 8 Therapeutic Exercises Supine Exercises core Supine Exercise Name DL isometric Side bilateral Reps/Minutes 25 sec Sitting Exercises seated hip abduction with band Side bilateral Equipment Used level 5 band Reps/Minutes one minute Comments monitored for pain Standing Exercises squat with band Side bilateral Equipment Used lvl 3 Reps/Minutes 2x10 Comments VC to squat to a depth that does not increase pain Manual Therapy Treatment Soft Tissue Mobilization STM left knee Body Location ITB, lat quad Mobilization Type Rolling,Other Body Position Hooklying Joint Mobilizations hip Comments free the ball ER FM; inf FM patellofemoral Joint sup, inf, med Neuro Re-Education Treatment Balance Activities bosu Comments 1. step up x10 L-rail prn 2. mini squat x10 blue side 3. black side balance DL w/ redding wt shifts CW/CCW 4. lat step ups x10 L PT-OP-T Assessment and Plan Start: 06/09/23 12:58 Freq: Status: Active Protocol: Document 07/24/23 13:05 [facility] (Rec: 07/24/23 13:46 [facility] [id number]) Physical Therapy Assessment Goals strength Short Term Goal (STG) pt will be indep w/HEP STG Duration achieved advancing as able Intermediate Goal (LTG) Pt will score 5/5 on all B LE MMT in order to allow ease w/ typical active lifestyle. 07/09-improving LTG Duration 09/01/23 ROM Short Term Goal (STG) Pt will improved L knee AROM to at least 5-100 STG Duration achieved Fire Operations Forester Goal (LTG) Pt will have at least 0-125 deg L Knee ROM in order to allow pt to do stairs and squatting down activities. LTG Duration 09/01/23 activity Short Term Goal (STG) pt will be able to go for walks on flat ground up to 1/2 mile w/o inc pain greater than 4/10 STG Duration achieved Intermediate Goal (LTG) pt will be able to go for walks on uneven ground/trails for 2 miles w/o inc pain greater than 1/10 LTG Duration 09/01/23 LEFS Impairment 0 Short Term Goal (STG) Pt will be to improve LEFS to at least 35/80 to show improved functional ability. STG Duration achieved to 36 Intermediate Goal (LTG) Pt will be to improve LEFS to at least 60/80 to show improved functional ability. LTG Duration 09/01/23 Assessment Summary Assessment Pt is improving today with greater ease with all exercises w/less pain. He has improved strength with squats and was able to squat deeper. Physical Therapy Plan Frequency and Duration Frequency of Treatment 2x/Week Duration of treatment (weeks) 12 Plan of Care Start Date 06/09/23 Plan of Care End Date 09/01/23 Next Visit Focus/Plan Next Note Type Treatment Note Next Visit Plan cont to advance strength and balance
--- NOTE | 2023-07-28 16:31 | PT.OTN ---
Current Diagnoses Unilateral primary osteoarthritis, left knee (07/28/23) Difficulty in walking, not elsewhere classified (07/28/23) Weakness (07/28/23) Physical Therapy Treatment Note PT-OP-A Visit Information Start: 06/09/23 12:58 Freq: Status: Active Protocol: Document 07/28/23 12:46 AB (Rec: 07/28/23 13:46 AB [id number]) Out-Patient Physical Therapy Visit Information Visit Information Visit Type Treatment Note Visit Note 07/31 Access Code [email or web address] Visit Start Time 13:01 Visit Stop Time 13:45 Visit Number 14 Number of CARPET YARN WINDER OPERATOR Visits 1 PT-OP-B Current Condition Start: 06/09/23 12:58 Freq: Status: Active Protocol: Document 06/09/23 12:58 [facility] (Rec: 06/09/23 15:16 [facility] [id number]) Current Condition History of Current Condition Onset Date 06/05/23 Current Complaints L UKA History of Current Condition Pt reports he had a menisectomy 45 years ago and was having cortizone shots and was tat the point needed surgery. He is typically really active and wants to get back to that especially this summer. Pt had a partial tear of achilles last fall and is now recovered. Pt reports he is woosy when it comes to pain. Has a trigger finger in left hand. He hasn't been doing exercises besides some general ROM. He has a FWW and elevated toilet seat but hasn' t needed it. HE showered for the first time today besides inc pain. He has a walk in shower. He has been using a hunting cot so he doesn't ahve to go upstairs. He did go upstairs to shower today. meniscectomy done in R knee 2 years ago but still painful Treatment Goals Patient/Caregiver Goals Fishing, crabbing, biking, hiking, work on 5 acre yard and around house PT-OP-C Subjective Start: 06/09/23 12:58 Freq: Status: Active Protocol: Document 07/28/23 12:46 [facility] (Rec: 07/28/23 13:46 AB [id number]) OP-PT Subjective Patient Comments Patient Comments Patient reports he feels that he had a set back. Patient reports increased pain and swelling, unable to determine cause. AROM left knee 0 to 120 deg start of session. PT-OP-F Manual Assessment Start: 06/09/23 12:58 Freq: Status: Active Protocol: Document 06/09/23 12:58 [facility] (Rec: 06/09/23 15:16 [facility] [id number]) Manual Assessments Other Manual Assessments Other Manual Assessments He took off the surgical dressing yesterday adn changed to what was recommended. He is wearing thigh high compression stockings. mild bruising noted in med quad PT-OP-G Mobility & Gait Start: 06/09/23 12:58 Freq: Status: Active Protocol: Document 06/09/23 12:58 [facility] (Rec: 06/09/23 15:16 [facility] [id number]) OP Gait Assessment Comments Gait Comments Amb w/sig dec stance on LLE, lat lean to LLE; dec step length RLE step through and amb w/pole on L PT-OP-K Range of Motion Start: 06/09/23 12:58 Freq: Status: Active Protocol: Document 07/10/23 09:52 [facility] (Rec: 07/10/23 10:32 [facility] [id number]) Knee Goniometric Range of Motion Knee Left Flexion Active (degrees) 117 Extension Active (degrees) 0 Comments pain PT-OP-M Strength Start: 06/09/23 12:58 Freq: Status: Active Protocol: Document 07/10/23 09:52 [facility] (Rec: 07/10/23 10:32 [facility] [id number]) Hip Strength Hip Manual Muscle Testing Right Flexion (L2) 5 Normal Extension (S1) 5 Normal Abduction 5 Normal Adduction 4+ Good+ External Rotation 5 Normal Internal Rotation 5 Normal Left Flexion (L2) 5 Normal Extension (S1) 3+ Fair+ Abduction 4+ Good+ Adduction 4+ Good+ External Rotation 5 Normal Internal Rotation 5 Normal Knee Strength Knee Manual Muscle Testing Right Flexion (S2) 5 Normal Extension (L3) 5 Normal Left Flexion (S2) 4+ Good+ Extension (L3) 4+ Good+ Ankle/Foot Strength Ankle and Foot Manual Muscle Testing Right Dorsiflexion (L4) 5 Normal Plantarflexion (S1) 5 Normal Comments 20 heel raises Left Dorsiflexion (L4) 5 Normal Plantarflexion (S1) 4 Good Comments 11 heel raises-pain in quad PT-OP-Q Treatments Start: 06/09/23 12:58 Freq: Status: Active Protocol: Document 07/28/23 12:46 AB (Rec: 07/28/23 13:46 AB [id number]) Therapeutic Exercises Standing Exercises glute med isometric Side bilateral Reps/Minutes one minute X 30 to 35 sec each LE Comments Verbal and visual cues step down Standing Exercise Name step up step back 6 inch step and step down fwd Equipment Used 4 in step fwd X 2 then X 10 6 inch step back 3X10 Reps/Minutes 12 Comments cues control calf stretch Standing Exercise Name stair gastroc Side bilateral Reps/Minutes 1 min each Manual Therapy Treatment Soft Tissue Mobilization STM left knee Body Location ITB, lat quad Mobilization Type Rolling,Other Body Position Hooklying Taping Patellar taping Body Location left knee Treatment Focus unload fat pad and track medially Type of Tape Leukotape and coverroll Skin Inspection WNL PT-OP-T Assessment and Plan Start: 06/09/23 12:58 Freq: Status: Active Protocol: Document 07/28/23 12:46 [facility] (Rec: 07/28/23 13:46 AB [id number]) Physical Therapy Assessment Goals strength Short Term Goal (STG) pt will be indep w/HEP STG Duration achieved advancing as able Eviction Specialist Goal (LTG) Pt will score 5/5 on all B LE MMT in order to allow ease w/ typical active lifestyle. 07/09-improving LTG Duration 09/01/23 ROM Short Term Goal (STG) Pt will improved L knee AROM to at least 5-100 STG Duration achieved Fpc Goal (LTG) Pt will have at least 0-125 deg L Knee ROM in order to allow pt to do stairs and squatting down activities. LTG Duration 09/01/23 activity Short Term Goal (STG) pt will be able to go for walks on flat ground up to 1/2 mile w/o inc pain greater than 4/10 STG Duration achieved Fpc Goal (LTG) pt will be able to go for walks on uneven ground/trails for 2 miles w/o inc pain greater than 1/10 LTG Duration 09/01/23 LEFS Impairment 0 Short Term Goal (STG) Pt will be to improve LEFS to at least 35/80 to show improved functional ability. STG Duration achieved to 36 Eviction Specialist Goal (LTG) Pt will be to improve LEFS to at least 60/80 to show improved functional ability. LTG Duration 09/01/23 Assessment Summary Assessment Palomo reports he is good end of session. Physical Therapy Plan Frequency and Duration Frequency of Treatment 2x/Week Duration of treatment (weeks) 12 Plan of Care Start Date 06/09/23 Plan of Care End Date 09/01/23 Next Visit Focus/Plan Next Note Type Treatment Note Next Visit Plan cont to advance strength and balance
--- NOTE | 2023-07-30 10:42 | PT.OTN ---
Current Diagnoses Unilateral primary osteoarthritis, left knee (07/30/23) Difficulty in walking, not elsewhere classified (07/30/23) Weakness (07/30/23) Physical Therapy Treatment Note PT-OP-A Visit Information Start: 06/09/23 12:58 Freq: Status: Active Protocol: Document 07/30/23 08:08 AB (Rec: 07/30/23 10:42 AB [id number]) Out-Patient Physical Therapy Visit Information Visit Information Visit Type Treatment Note Visit Note 08/31 Access Code [id number] Visit Start Time 09:03 Visit Stop Time 09:46 Visit Number 15 Number of ORGAN RECOVERY COORDINATOR Visits 2 PT-OP-B Current Condition Start: 06/09/23 12:58 Freq: Status: Active Protocol: Document 06/09/23 12:58 [facility] (Rec: 06/09/23 15:16 [facility] [id number]) Current Condition History of Current Condition Onset Date 06/05/23 Current Complaints L UKA History of Current Condition Pt reports he had a menisectomy 45 years ago and was having cortizone shots and was tat the point needed surgery. He is typically really active and wants to get back to that especially this summer. Pt had a partial tear of achilles last fall and is now recovered. Pt reports he is woosy when it comes to pain. Has a trigger finger in left hand. He hasn't been doing exercises besides some general ROM. He has a FWW and elevated toilet seat but hasn' t needed it. HE showered for the first time today besides inc pain. He has a walk in shower. He has been using a hunting cot so he doesn't ahve to go upstairs. He did go upstairs to shower today. meniscectomy done in R knee 2 years ago but still painful Treatment Goals Patient/Caregiver Goals Fishing, crabbing, biking, hiking, work on 5 acre yard and around house PT-OP-C Subjective Start: 06/09/23 12:58 Freq: Status: Active Protocol: Document 07/30/23 08:08 AB (Rec: 07/30/23 10:42 AB [id number]) OP-PT Subjective Patient Comments Patient Comments Patient reports he saw the MD and was told not to be concerned about the scab, but to continue to stay out of the hot tub. Patient reports he felt better post performing the exercises. AROM left knee lacking 2 deg extension to 122 deg flexion. PT-OP-F Manual Assessment Start: 06/09/23 12:58 Freq: Status: Active Protocol: Document 06/09/23 12:58 [facility] (Rec: 06/09/23 15:16 [facility] [id number]) Manual Assessments Other Manual Assessments Other Manual Assessments He took off the surgical dressing yesterday adn changed to what was recommended. He is wearing thigh high compression stockings. mild bruising noted in med quad PT-OP-G Mobility & Gait Start: 06/09/23 12:58 Freq: Status: Active Protocol: Document 06/09/23 12:58 [facility] (Rec: 06/09/23 15:16 [facility] [id number]) OP Gait Assessment Comments Gait Comments Amb w/sig dec stance on LLE, lat lean to LLE; dec step length RLE step through and amb w/pole on L PT-OP-K Range of Motion Start: 06/09/23 12:58 Freq: Status: Active Protocol: Document 07/10/23 09:52 [facility] (Rec: 07/10/23 10:32 [facility] [id number]) Knee Goniometric Range of Motion Knee Left Flexion Active (degrees) 117 Extension Active (degrees) 0 Comments pain PT-OP-M Strength Start: 06/09/23 12:58 Freq: Status: Active Protocol: Document 07/10/23 09:52 [facility] (Rec: 07/10/23 10:32 [facility] [id number]) Hip Strength Hip Manual Muscle Testing Right Flexion (L2) 5 Normal Extension (S1) 5 Normal Abduction 5 Normal Adduction 4+ Good+ External Rotation 5 Normal Internal Rotation 5 Normal Left Flexion (L2) 5 Normal Extension (S1) 3+ Fair+ Abduction 4+ Good+ Adduction 4+ Good+ External Rotation 5 Normal Internal Rotation 5 Normal Knee Strength Knee Manual Muscle Testing Right Flexion (S2) 5 Normal Extension (L3) 5 Normal Left Flexion (S2) 4+ Good+ Extension (L3) 4+ Good+ Ankle/Foot Strength Ankle and Foot Manual Muscle Testing Right Dorsiflexion (L4) 5 Normal Plantarflexion (S1) 5 Normal Comments 20 heel raises Left Dorsiflexion (L4) 5 Normal Plantarflexion (S1) 4 Good Comments 11 heel raises-pain in quad PT-OP-Q Treatments Start: 06/09/23 12:58 Freq: Status: Active Protocol: Document 07/30/23 08:08 AB (Rec: 07/30/23 10:42 AB [id number]) Gym Equipment Shuttle Balance red clips Details head turns and visual scanning Comments stagger stance mini squats X 10 without scanning and head turns CGA Therapeutic Exercises Supine Exercises HS stretch Supine Exercise Name from hooklying holding behind knee with towel Reps/Minutes X2 60 seconds Standing Exercises glute med isometric Side bilateral Reps/Minutes one minute X 30 to 35 sec each LE Comments Verbal and visual cues calf stretch Standing Exercise Name stair gastroc Side bilateral Reps/Minutes 1 min X2 each step ups Standing Exercise Name lat up/down Side left Reps/Minutes 12 ea Comments cues control Manual Therapy Treatment Soft Tissue Mobilization STM left knee Body Location quad, peripatellar, hamstring Mobilization Type Cross-Friction,Rolling Neuro Re-Education Treatment Balance Activities bosu Details hands above bars CGA Comments 1. step up x10 blue side 2. mini squat x10 blue side foam Details blue cushion Comments SLS with visual scanning and head turns PT-OP-T Assessment and Plan Start: 06/09/23 12:58 Freq: Status: Active Protocol: Document 07/30/23 08:08 AB (Rec: 07/30/23 10:42 AB [id number]) Physical Therapy Assessment Assessment Summary Assessment Patient reports having no pain , just tired end of session, Noted increased SLS on foam with head turns and scanning from 3 sec to 5-6 seconds left LE post glute med activation. Physical Therapy Plan Frequency and Duration Frequency of Treatment 2x/Week Duration of treatment (weeks) 12 Plan of Care Start Date 06/09/23 Plan of Care End Date 09/01/23 Next Visit Focus/Plan Next Note Type Treatment Note Next Visit Plan cont to advance strength and balance
--- NOTE | 2023-08-04 14:30 | PT.OTN ---
Current Diagnoses Unilateral primary osteoarthritis, left knee (08/04/23) Difficulty in walking, not elsewhere classified (08/04/23) Weakness (08/04/23) Physical Therapy Treatment Note PT-OP-A Visit Information Start: 06/09/23 12:58 Freq: Status: Active Protocol: Document 08/04/23 13:45 [facility] (Rec: 08/04/23 14:30 [facility] [id number]) Out-Patient Physical Therapy Visit Information Visit Information Visit Type Progress Note Visit Note 04/02 Visit Start Time 13:46 Visit Stop Time 14:27 Visit Number 16 Number of BLACK ASH WORKER Visits 0 PT-OP-B Current Condition Start: 06/09/23 12:58 Freq: Status: Active Protocol: Document 06/09/23 12:58 [facility] (Rec: 06/09/23 15:16 [facility] [id number]) Current Condition History of Current Condition Onset Date 06/05/23 Current Complaints L UKA History of Current Condition Pt reports he had a menisectomy 45 years ago and was having cortizone shots and was tat the point needed surgery. He is typically really active and wants to get back to that especially this summer. Pt had a partial tear of achilles last fall and is now recovered. Pt reports he is woosy when it comes to pain. Has a trigger finger in left hand. He hasn't been doing exercises besides some general ROM. He has a FWW and elevated toilet seat but hasn' t needed it. HE showered for the first time today besides inc pain. He has a walk in shower. He has been using a hunting cot so he doesn't ahve to go upstairs. He did go upstairs to shower today. meniscectomy done in R knee 2 years ago but still painful Treatment Goals Patient/Caregiver Goals Fishing, crabbing, biking, hiking, work on 5 acre yard and around house PT-OP-C Subjective Start: 06/09/23 12:58 Freq: Status: Active Protocol: Document 08/04/23 13:45 [facility] (Rec: 08/04/23 14:30 [facility] [id number]) OP-PT Subjective Patient Comments Patient Comments pt went clamdigging and that was a little rough on it. Did a lot of gardening and that went okay w/knee. No more sharp pains, but knee still feels tired. he rode his bike 12 miles and felt okay and did paved and mostly flat overall . PT-OP-F Manual Assessment Start: 06/09/23 12:58 Freq: Status: Active Protocol: Document 06/09/23 12:58 [facility] (Rec: 06/09/23 15:16 [facility] [id number]) Manual Assessments Other Manual Assessments Other Manual Assessments He took off the surgical dressing yesterday adn changed to what was recommended. He is wearing thigh high compression stockings. mild bruising noted in med quad PT-OP-G Mobility & Gait Start: 06/09/23 12:58 Freq: Status: Active Protocol: Document 06/09/23 12:58 [facility] (Rec: 06/09/23 15:16 [facility] [id number]) OP Gait Assessment Comments Gait Comments Amb w/sig dec stance on LLE, lat lean to LLE; dec step length RLE step through and amb w/pole on L PT-OP-K Range of Motion Start: 06/09/23 12:58 Freq: Status: Active Protocol: Document 08/04/23 13:45 [facility] (Rec: 08/04/23 14:30 [facility] [id number]) Knee Goniometric Range of Motion Knee Left Flexion Active (degrees) 122 Extension Active (degrees) 0 Comments tight PT-OP-M Strength Start: 06/09/23 12:58 Freq: Status: Active Protocol: Document 08/04/23 13:45 [facility] (Rec: 08/04/23 14:30 [facility] [id number]) Hip Strength Hip Manual Muscle Testing Right Flexion (L2) 5 Normal Extension (S1) 5 Normal Abduction 5 Normal Adduction 5 Normal External Rotation 5 Normal Internal Rotation 5 Normal Left Flexion (L2) 5 Normal Extension (S1) 5 Normal Abduction 5 Normal Adduction 5 Normal External Rotation 5 Normal Internal Rotation 5 Normal Knee Strength Knee Manual Muscle Testing Right Flexion (S2) 5 Normal Extension (L3) 5 Normal Left Flexion (S2) 5 Normal Extension (L3) 5 Normal Ankle/Foot Strength Ankle and Foot Manual Muscle Testing Right Dorsiflexion (L4) 5 Normal Plantarflexion (S1) 5 Normal Comments 20 heel raises Left Dorsiflexion (L4) 5 Normal Plantarflexion (S1) 5 Normal Comments 20 heel raises PT-OP-Q Treatments Start: 06/09/23 12:58 Freq: Status: Active Protocol: Document 08/04/23 13:45 [facility] (Rec: 08/04/23 14:30 [facility] [id number]) Cardio Equipment Bicycle (Upright) Duration (Minutes) 6 Resistance 1-10 Seat Position 8 Therapeutic Exercises Standing Exercises step down Standing Exercise Name step up step back 6 inch step and step down fwd Equipment Used 6 in Reps/Minutes 12 Comments cues control stretches Standing Exercise Name quad on mat Side left Reps/Minutes [id number] step ups Standing Exercise Name lat up/down Side left Equipment Used 6 in Reps/Minutes 12 ea Comments cues control & alignment sit to stand Side bilateral Reps/Minutes 10 reps after Comments facilitation into LLE 1st w/ traction Other Exercises isometrics Other Exercise Name MMT Side bilateral Manual Therapy Treatment Soft Tissue Mobilization STM left knee Body Location VL in seated Mobilization Type Cross-Friction,Rolling PT-OP-T Assessment and Plan Start: 06/09/23 12:58 Freq: Status: Active Protocol: Document 08/04/23 13:45 [facility] (Rec: 08/04/23 14:30 [facility] [id number]) Physical Therapy Assessment Goals strength Short Term Goal (STG) pt will be indep w/HEP STG Duration achieved advancing as able Brick Molder Hand Goal (LTG) Pt will score 5/5 on all B LE MMT in order to allow ease w/ typical active lifestyle. 07/09-improving LTG Duration achieved strength 08/03 ROM Short Term Goal (STG) Pt will improved L knee AROM to at least 5-100 STG Duration achieved Assisted Goal (LTG) Pt will have at least 0-125 deg L Knee ROM in order to allow pt to do stairs and squatting down activities. 08/03-0-122 LTG Duration 09/01/23 activity Short Term Goal (STG) pt will be able to go for walks on flat ground up to 1/2 mile w/o inc pain greater than 4/10 STG Duration achieved Brick Molder Hand Goal (LTG) pt will be able to go for walks on uneven ground/trails for 2 miles w/o inc pain greater than 1/10 08/03-on beach which was a little harder on his knee; has already gotten about 6k steps in so far LTG Duration 09/01/23 LEFS Impairment 0 Short Term Goal (STG) Pt will be to improve LEFS to at least 35/80 to show improved functional ability. STG Duration achieved to 36 Brick Molder Hand Goal (LTG) Pt will be to improve LEFS to at least 60/80 to show improved functional ability. 08/03-80 LTG Duration 09/01/23 Assessment Summary Assessment Pt making great progress w/ strength and ROM w/dec functional strength still w/ some pain noted still w/decent of stairs. He still has difficulty on uneven terrain w /knee discomfort. requires cues for control for decent. cont PT to work on stair control Physical Therapy Plan Frequency and Duration Frequency of Treatment 2x/Week Duration of treatment (weeks) 12 Plan of Care Start Date 06/09/23 Plan of Care End Date 09/01/23 Therapeutic Interventions Therapeutic Interventions Balance Training,Gait Training ,Home Exercise Program,Joint Mobilizations,Manual Therapy, Neuromuscular Re-education, Orthotic/Prosthetic Management ,Patient/Caregiver Education, Self-Care/Home Management,Soft Tissue Mobilization,Taping, Therapeutic Activities, Therapeutic Exercises Modalities Cold Pack/Ice Massage,Electric Stimulation,Hot Packs, Ultrasound Next Visit Focus/Plan Next Note Type Treatment Note Next Visit Plan cont to advance strength and balance
--- NOTE | 2023-08-12 10:50 | PT.OTN ---
Current Diagnoses Unilateral primary osteoarthritis, left knee (08/12/23) Difficulty in walking, not elsewhere classified (08/12/23) Weakness (08/12/23) Physical Therapy Treatment Note PT-OP-A Visit Information Start: 06/09/23 12:58 Freq: Status: Active Protocol: Document 08/12/23 09:44 SW (Rec: 08/12/23 10:50 SW [id number]) Out-Patient Physical Therapy Visit Information Visit Information Visit Type Treatment Note Visit Note 05/03 PN Visit Start Time 09:46 Visit Stop Time 10:26 Visit Number 17 Number of HUMAN RESOURCES ADMINISTRATOR Visits 1 PT-OP-B Current Condition Start: 06/09/23 12:58 Freq: Status: Active Protocol: Document 06/09/23 12:58 [facility] (Rec: 06/09/23 15:16 [facility] [id number]) Current Condition History of Current Condition Onset Date 06/05/23 Current Complaints L UKA History of Current Condition Pt reports he had a menisectomy 45 years ago and was having cortizone shots and was tat the point needed surgery. He is typically really active and wants to get back to that especially this summer. Pt had a partial tear of achilles last fall and is now recovered. Pt reports he is woosy when it comes to pain. Has a trigger finger in left hand. He hasn't been doing exercises besides some general ROM. He has a FWW and elevated toilet seat but hasn' t needed it. HE showered for the first time today besides inc pain. He has a walk in shower. He has been using a hunting cot so he doesn't ahve to go upstairs. He did go upstairs to shower today. meniscectomy done in R knee 2 years ago but still painful Treatment Goals Patient/Caregiver Goals Fishing, crabbing, biking, hiking, work on 5 acre yard and around house PT-OP-C Subjective Start: 06/09/23 12:58 Freq: Status: Active Protocol: Document 08/12/23 09:44 SW (Rec: 08/12/23 10:50 SW [id number]) OP-PT Subjective Patient Comments Patient Comments Pt reports L lateral discomfort, glute to inferior knee. Pt reports knee has been feeling good, it has been multiple other areas sore with different activities. PT-OP-F Manual Assessment Start: 06/09/23 12:58 Freq: Status: Active Protocol: Document 06/09/23 12:58 [facility] (Rec: 06/09/23 15:16 [facility] [id number]) Manual Assessments Other Manual Assessments Other Manual Assessments He took off the surgical dressing yesterday adn changed to what was recommended. He is wearing thigh high compression stockings. mild bruising noted in med quad PT-OP-G Mobility & Gait Start: 06/09/23 12:58 Freq: Status: Active Protocol: Document 06/09/23 12:58 [facility] (Rec: 06/09/23 15:16 [facility] [id number]) OP Gait Assessment Comments Gait Comments Amb w/sig dec stance on LLE, lat lean to LLE; dec step length RLE step through and amb w/pole on L PT-OP-K Range of Motion Start: 06/09/23 12:58 Freq: Status: Active Protocol: Document 08/04/23 13:45 [facility] (Rec: 08/04/23 14:30 [facility] [id number]) Knee Goniometric Range of Motion Knee Left Flexion Active (degrees) 122 Extension Active (degrees) 0 Comments tight PT-OP-M Strength Start: 06/09/23 12:58 Freq: Status: Active Protocol: Document 08/04/23 13:45 [facility] (Rec: 08/04/23 14:30 [facility] [id number]) Hip Strength Hip Manual Muscle Testing Right Flexion (L2) 5 Normal Extension (S1) 5 Normal Abduction 5 Normal Adduction 5 Normal External Rotation 5 Normal Internal Rotation 5 Normal Left Flexion (L2) 5 Normal Extension (S1) 5 Normal Abduction 5 Normal Adduction 5 Normal External Rotation 5 Normal Internal Rotation 5 Normal Knee Strength Knee Manual Muscle Testing Right Flexion (S2) 5 Normal Extension (L3) 5 Normal Left Flexion (S2) 5 Normal Extension (L3) 5 Normal Ankle/Foot Strength Ankle and Foot Manual Muscle Testing Right Dorsiflexion (L4) 5 Normal Plantarflexion (S1) 5 Normal Comments 20 heel raises Left Dorsiflexion (L4) 5 Normal Plantarflexion (S1) 5 Normal Comments 20 heel raises PT-OP-Q Treatments Start: 06/09/23 12:58 Freq: Status: Active Protocol: Document 08/12/23 09:44 SW (Rec: 08/12/23 10:50 SW [id number]) Cardio Equipment Bicycle (Upright) Duration (Minutes) 8 Resistance 1-10 Seat Position 8 Gym Equipment Shuttle Balance red clips Details WBOS, stagger Comments stagger stance head turns CGA Therapeutic Exercises Supine Exercises HS stretch Supine Exercise Name from hooklying holding behind knee with towel Reps/Minutes X2 60 seconds Standing Exercises lateral stepping Standing Exercise Name side stepping, resisted ambulation Side bilateral Resistance green TB Equipment Used @ rail Reps/Minutes 3 x 10 ft ea Comments cues for alignment, maintaing bend in knees step down Standing Exercise Name step up step back 6 inch step and step down fwd Equipment Used 6 in Reps/Minutes 12 Comments cues control calf stretch Standing Exercise Name gastroc/soleus Side bilateral Reps/Minutes 1' x 2 ea step ups Standing Exercise Name lat up/down Side left Equipment Used 6 in Reps/Minutes 12 ea Comments cues control Neuro Re-Education Treatment Balance Activities SLS Surface stable Equipment @ counter Reps/Duration 3 x 1' Comments cues for balance points to decrease ankle inversion Self-Care/Home Management Treatment Education Patient Education Home Exercise Program,Pain Management Other Education HEP, Progressions, strength/ mobility/flexibility, Importance of Carryover HEP for maintaining progress. PT-OP-T Assessment and Plan Start: 06/09/23 12:58 Freq: Status: Active Protocol: Document 08/12/23 09:44 (Rec: 08/12/23 10:50 [id number]) Physical Therapy Assessment Goals strength Short Term Goal (STG) pt will be indep w/HEP STG Duration achieved advancing as able [facility] Goal (LTG) Pt will score 5/5 on all B LE MMT in order to allow ease w/ typical active lifestyle. 07/09-improving LTG Duration achieved strength 08/03 ROM Short Term Goal (STG) Pt will improved L knee AROM to at least 5-100 STG Duration achieved Boatswain Mate Goal (LTG) Pt will have at least 0-125 deg L Knee ROM in order to allow pt to do stairs and squatting down activities. 08/03-0-122 LTG Duration 09/01/23 activity Short Term Goal (STG) pt will be able to go for walks on flat ground up to 1/2 mile w/o inc pain greater than 4/10 STG Duration achieved [facility] Goal (LTG) pt will be able to go for walks on uneven ground/trails for 2 miles w/o inc pain greater than /08/03-on beach which was a little harder on his knee; has already gotten about 6k steps in so far LTG Duration 09/01/23 LEFS Impairment 0 Short Term Goal (STG) Pt will be to improve LEFS to at least 35/80 to show improved functional ability. STG Duration achieved to 36 Boatswain Mate Goal (LTG) Pt will be to improve LEFS to at least 60/80 to show improved functional ability. 08/03-53/80 LTG Duration 09/01/23 Assessment Summary Assessment Extended time on pt education this session. Pt to discuss with PT next session possible discharge and carryover of HEP for maintenance. Physical Therapy Plan Frequency and Duration Frequency of Treatment 2x/Week Duration of treatment (weeks) 12 Plan of Care Start Date 06/09/23 Plan of Care End Date 09/01/23 Therapeutic Interventions Therapeutic Interventions Balance Training,Gait Training ,Home Exercise Program,Joint Mobilizations,Manual Therapy, Neuromuscular Re-education, Orthotic/Prosthetic Management ,Patient/Caregiver Education, Self-Care/Home Management,Soft Tissue Mobilization,Taping, Therapeutic Activities, Therapeutic Exercises Modalities Cold Pack/Ice Massage,Electric Stimulation,Hot Packs, Ultrasound Next Visit Focus/Plan Next Note Type Treatment Note Next Visit Plan HEP review/Handouts for carryover
--- NOTE | 2023-08-14 18:12 | PT.OTN ---
Current Diagnoses Unilateral primary osteoarthritis, left knee (08/14/23) Difficulty in walking, not elsewhere classified (08/14/23) Weakness (08/14/23) Physical Therapy Treatment Note PT-OP-A Visit Information Start: 06/09/23 12:58 Freq: Status: Active Protocol: Document 08/14/23 16:48 [facility] (Rec: 08/14/23 18:12 [facility] [id number]) Out-Patient Physical Therapy Visit Information Visit Information Visit Type Discharge Summary Visit Start Time 16:46 Visit Stop Time 17:30 Visit Number 18 Number of TAXONOMIST Visits 0 PT-OP-B Current Condition Start: 06/09/23 12:58 Freq: Status: Active Protocol: Document 06/09/23 12:58 [facility] (Rec: 06/09/23 15:16 [facility] [id number]) Current Condition History of Current Condition Onset Date 06/05/23 Current Complaints L UKA History of Current Condition Pt reports he had a menisectomy 45 years ago and was having cortizone shots and was tat the point needed surgery. He is typically really active and wants to get back to that especially this summer. Pt had a partial tear of achilles last fall and is now recovered. Pt reports he is woosy when it comes to pain. Has a trigger finger in left hand. He hasn't been doing exercises besides some general ROM. He has a FWW and elevated toilet seat but hasn' t needed it. HE showered for the first time today besides inc pain. He has a walk in shower. He has been using a hunting cot so he doesn't ahve to go upstairs. He did go upstairs to shower today. meniscectomy done in R knee 2 years ago but still painful Treatment Goals Patient/Caregiver Goals Fishing, crabbing, biking, hiking, work on 5 acre yard and around house PT-OP-C Subjective Start: 06/09/23 12:58 Freq: Status: Active Protocol: Document 08/14/23 16:48 [facility] (Rec: 08/14/23 18:12 [facility] [id number]) OP-PT Subjective Patient Comments Patient Comments Pt reports he had a big day friday and had pain in post HS and stretched and iced and recovered. Still gets tightness in ant quad PT-OP-F Manual Assessment Start: 06/09/23 12:58 Freq: Status: Active Protocol: Document 06/09/23 12:58 [facility] (Rec: 06/09/23 15:16 [facility] [id number]) Manual Assessments Other Manual Assessments Other Manual Assessments He took off the surgical dressing yesterday adn changed to what was recommended. He is wearing thigh high compression stockings. mild bruising noted in med quad PT-OP-G Mobility & Gait Start: 06/09/23 12:58 Freq: Status: Active Protocol: Document 06/09/23 12:58 [facility] (Rec: 06/09/23 15:16 [facility] [id number]) OP Gait Assessment Comments Gait Comments Amb w/sig dec stance on LLE, lat lean to LLE; dec step length RLE step through and amb w/pole on L PT-OP-K Range of Motion Start: 06/09/23 12:58 Freq: Status: Active Protocol: Document 08/04/23 13:45 [facility] (Rec: 08/04/23 14:30 [facility] [id number]) Knee Goniometric Range of Motion Knee Left Flexion Active (degrees) 122 Extension Active (degrees) 0 Comments tight PT-OP-M Strength Start: 06/09/23 12:58 Freq: Status: Active Protocol: Document 08/04/23 13:45 [facility] (Rec: 08/04/23 14:30 [id number] Hip Strength Hip Manual Muscle Testing Right Flexion (L2) 5 Normal Extension (S1) 5 Normal Abduction 5 Normal Adduction 5 Normal External Rotation 5 Normal Internal Rotation 5 Normal Left Flexion (L2) 5 Normal Extension (S1) 5 Normal Abduction 5 Normal Adduction 5 Normal External Rotation 5 Normal Internal Rotation 5 Normal Knee Strength Knee Manual Muscle Testing Right Flexion (S2) 5 Normal Extension (L3) 5 Normal Left Flexion (S2) 5 Normal Extension (L3) 5 Normal Ankle/Foot Strength Ankle and Foot Manual Muscle Testing Right Dorsiflexion (L4) 5 Normal Plantarflexion (S1) 5 Normal Comments 20 heel raises Left Dorsiflexion (L4) 5 Normal Plantarflexion (S1) 5 Normal Comments 20 heel raises PT-OP-Q Treatments Start: 06/09/23 12:58 Freq: Status: Active Protocol: Document 08/14/23 16:48 [facility] (Rec: 08/14/23 18:12 [facility] [id number]) Therapeutic Exercises Supine Exercises bridge Supine Exercise Name DL Side bilateral Reps/Minutes 8 Comments SL bridge attempts Sitting Exercises seated hip abduction with band Side bilateral Equipment Used level 5 band Reps/Minutes one minute Comments monitored for pain Standing Exercises squat Side bilateral Equipment Used L5 band at knees Reps/Minutes 15 Comments tap Other Exercises stretches Other Exercise Name review of stretches (calf, HS, bottoms up, glute, figure 4) Side bilateral Reps/Minutes 6 min Manual Therapy Treatment Soft Tissue Mobilization STM left knee Body Location VL, HS, ITB, lat glute Mobilization Type Cross-Friction,Rolling Joint Mobilizations hip Comments free the ball ER & IR FM; inf FM patellofemoral Joint sup, inf, med PT-OP-T Assessment and Plan Start: 06/09/23 12:58 Freq: Status: Active Protocol: Document 08/14/23 16:48 [facility] (Rec: 08/14/23 18:12 [facility] [id number]) Physical Therapy Assessment Goals strength Short Term Goal (STG) pt will be indep w/HEP STG Duration achieved advancing as able [facility] Goal (LTG) Pt will score 5/5 on all B LE MMT in order to allow ease w/ typical active lifestyle. 07/09-improving LTG Duration achieved strength 08/03 ROM Short Term Goal (STG) Pt will improved L knee AROM to at least 5-100 STG Duration achieved [facility] Goal (LTG) Pt will have at least 0-125 deg L Knee ROM in order to allow pt to do stairs and squatting down activities. 08/03-0-122 LTG Duration achieved to 0-125 activity Short Term Goal (STG) pt will be able to go for walks on flat ground up to 1/2 mile w/o inc pain greater than 4/10 STG Duration achieved [facility] Goal (LTG) pt will be able to go for walks on uneven ground/trails for 2 miles w/o inc pain greater than 1/10 08/03-on beach which was a little harder on his knee; has already gotten about 6k steps in so far LTG Duration achieved LEFS Impairment 0 Short Term Goal (STG) Pt will be to improve LEFS to at least 35/80 to show improved functional ability. STG Duration achieved to 36 Inseam Trimmer Goal (LTG) Pt will be to improve LEFS to at least 60/80 to show improved functional ability. 08/03-53/80 LTG Duration achieved to 63 Assessment Summary Assessment Pt has met all goals at this time and is progressing well with treatment. He has had some L thigh pain which does not appear directly related to the knee. He improved with functional ability and has returned to fishing and yard work. DC to [facility] Physical Therapy Plan Discharge Physical Therapy Discharge Reasons Goals Met
== END 2023-08-19 10:42 | disposition home or self-care (01) ==
LOC: PHYS 16:45
PROVIDERS: Family Provider Student in an Organized Health Care Education/Training Program; PCP Student in an Organized Health Care Education/Training Program; Referring Provider Orthopaedic Surgery; Visit Provider Orthopaedic Surgery
DX: M17.12 Unilateral primary osteoarthritis, left knee (principal); R53.1 Weakness; R26.2 Difficulty in walking, not elsewhere classified
CPT/HCPCS: 97110; 97112; 97140; 97162; 97535

== ENCOUNTER → 2023-09-12 11:10 | Outpatient (CLI) | payer MEDICARE, OTHER, SELFPAY ==
[2023-09-12 13:36] LABS: Cortisol Random 7.27 ug/dL
== END ==
LOC: LAB 11:12
PROVIDERS: Family Provider Student in an Organized Health Care Education/Training Program; PCP Student in an Organized Health Care Education/Training Program; Referring Provider Internal Medicine; Visit Provider Internal Medicine
DX: I10 Essential (primary) hypertension (principal)
CPT/HCPCS: 36415; 82088; 82533; 82570; 83497; 83835; 84244

== ENCOUNTER → 2023-10-01 07:39 | Outpatient (CLI) | payer MEDICARE, OTHER, SELFPAY ==
--- NOTE | 2023-10-01 07:40 | DI.NM.S_ITS ---
PROCEDURE: NM EXERCISE TREADMILL NON NUC COMPARISON: None INDICATIONS: Angina FINDINGS: Rest ECG sinus rhythm. Jarod protocol 6:45, maximum heart rate 144 bpm (94% peak predicted), maximum blood pressure 200/100, 7.0 METS, BRAYAN +9%. Exercise ECG sinus tachycardia no ST segment changes or arrhythmia. The patient complained of a left arm ache during exercise that did not resolve until 5 minutes into recovery. IMPRESSION: Low risk study. No evidence of exercise-induced ischemia or arrhythmia. Hypertensive response. Normal heart rate response. Slightly reduced exercise capacity. Dictated by: Kimberly Clarke D.O. on 10/01/2023 at 15:22 Approved by: Kimberly Clarke D.O. on 10/01/2023 at 15:23
== END ==
PROVIDERS: Family Provider Student in an Organized Health Care Education/Training Program; PCP Student in an Organized Health Care Education/Training Program; Referring Provider Student in an Organized Health Care Education/Training Program; Visit Provider Student in an Organized Health Care Education/Training Program
DX: I20.89 Other forms of angina pectoris (principal)
CPT/HCPCS: 93017

== ENCOUNTER → 2023-11-26 11:25 | Outpatient (CLI) | payer MEDICARE, OTHER, SELFPAY ==
[2023-11-26 12:39] LABS: Alanine Aminotransferase 29 IU/L (<50); Albumin 4.6 g/dL (3.5-5.0); Albumin Globulin Ratio 1.4 (1.0-2.8); Alkaline Phosphatase 64 U/L (38-126); Aspartate Aminotransferase 29 IU/L (17-59); BUN Creatinine Ratio 14.6 (6-22); Bilirubin Total 0.8 mg/dL (0.2-1.3); Blood Urea Nitrogen 15 mg/dL (9-20); Calcium 9.3 mg/dL (8.4-10.2); Carbon Dioxide 25 mmol/L (22-32); Chloride 104 mmol/L (98-107); Estimated Glomerular Filt Rate > 60 mL/min (>60); Globulin 3.4 g/dL (1.7-4.1); Glucose 105 mg/dL (80-110); HEMOLYSIS < 15 (0-50); Potassium 4.2 mmol/L (3.4-5.1); Sodium 135 mmol/L (137-145)
[2023-11-26 18:32] LABS: Hemoglobin A1C% w Est Avg Glu 5.6 % (4.0-6.0)
== END ==
PROVIDERS: Family Provider Student in an Organized Health Care Education/Training Program; PCP Student in an Organized Health Care Education/Training Program; Referring Provider Student in an Organized Health Care Education/Training Program; Visit Provider Student in an Organized Health Care Education/Training Program
DX: R73.9 Hyperglycemia, unspecified (principal); I10 Essential (primary) hypertension
CPT/HCPCS: 36415; 80053; 83036; 84443

== ENCOUNTER → 2024-01-19 10:15 | Outpatient (CLI) | payer MEDICARE, OTHER, SELFPAY ==
--- NOTE | 2024-01-19 10:16 | DI.ECHO.S_ITS ---
[facility] : : [address] : : [place] : : [id number] : : Phone: [phone] Echocardiogram Report + + :Name: MIGUEL ANGEL DAVE Study Date: 01/19/2024 Height: 72 in : :[facility] ReadingLocation: Weight: 232 lb : : Gender: Male BSA: 2.3 m2 : :: 1955 Age: 68 yrs BP: 148/82 mmHg: :Reason For Study: ATHEROSCLEROTIC HEART DISEASE OF [place] : :[facility] [place] : :Ordering Physician: KAMALJIT RIZO Performed By: Shailesh Carpenter : :Referring: KAMALJIT RIZO : + + Interpretation Summary 1. The left ventricular contractility is normal estimated ejection fraction is greater than 60% with no segmental wall motion abnormalities. Mild concentric LVH. Grade 1 diastolic dysfunction. 2. The right ventricular contractility is normal. 3. All cardiac chambers are of normal size. 4. No significant valvular abnormalities. 5. No obvious intracardiac shunts. 6. No obvious intracardiac masses nor thrombi. 7. No hemodynamically significant pericardial effusion. 8. Low right-sided filling pressures. Conclusion: Normal biventricular systolic function with no significant valvular abnormalities. Procedure: A two-dimensional transthoracic echocardiogram with color flow and Doppler was performed. The study quality was technically good. There is no prior echocardiogram noted for this patient. The patient was in normal sinus rhythm during the exam. Left Ventricle: The left ventricle is normal in size. Left ventricular wall thickness is mildly increased. There is no ventricular septal defect visualized. The ejection fraction is estimated to be 60-65%. There are no focal wall motion abnormalities. Right Ventricle: The right ventricle is normal in size and function. Atria: The left atrial size is normal. The right atrium is normal in size. There is no Doppler evidence for an interatrial shunt. Mitral Valve: The mitral valve is normal in structure and function. There is trace mitral regurgitation. Aortic Valve: The aortic valve is trileaflet. The aortic valve opens well. No aortic regurgitation is present. Tricuspid Valve: The tricuspid valve is normal in structure and function. No tricuspid regurgitation. Pulmonic Valve: The pulmonic valve is normal in structure and function. There is no pulmonic valvular regurgitation. Great Vessels: The aortic root is normal size. The dimensions of the ascending aorta are normal. The pulmonary artery is normal size. The IVC is of normal diameter and collapses greater than 50% with a sniff. This suggests a low right atrial pressure of 3 mm Hg. Pericardium/ Pleura There is no pericardial effusion. There is no pleural effusion. MMode/2D Measurements & Calculations LVIDd: 5.2 cm LVOT diam: 2.4 cm LVIDs: 3.2 cm Ao root diam: 3.4 cm FS: 38.2 % asc Aorta Diam: 3.2 cm EPSS: 0.54 cm Ao Arch Diam (Prox Trans): 1.9 cm IVSd: 1.1 cm LVPWd: 1.1 cm LV seth. diameter/BSA (cm/m^2): 2.3 LV sys. diameter/BSA (cm/m^2): 1.4 LA A2 area: 17.4 cm2 RA long axis: 5.7 cm LA A4 area: 18.0 cm2 RA area: 21.5 cm2 LA length (vol): 5.1 cm RA vol: 68.4 ml LA vol: 51.6 ml RA : 30.1 ml/m2 LA vol index: 22.8 ml/m2 IVC diam: 1.9 cm RVD1 (basal): 3.4 cm RVD2 (mid): 2.8 cm TAPSE: 3.0 cm Doppler Measurements & Calculations Ao V2 max: 127.8 cm/sec LVOT Max Erick: 104.2 cm/sec Ao V2 mean: 88.4 cm/sec LV V1 max P.3 mmHg Ao max P.5 mmHg LV V1 VTI: 22.3 cm Ao mean P.5 mmHg MAGGIE(I,D): 3.8 cm2 Ao V2 VTI: 25.6 cm MAGGIE(V,D): 3.5 cm2 sev ratio: 0.87 MAGGIE indexed to BSA (cm^2/m^2): 1.7 MV E max erick: 65.8 cm/sec PA V2 max: 85.8 cm/sec MV A max erick: 76.4 cm/sec PA V2 mean: 60.2 cm/sec MV E/A: 0.86 PA mean P.6 mmHg Med Peak E' Erick: 5.4 cm/sec E/E' med: 12.1 Lat Peak E' Erick: 8.3 cm/sec E/E' lat: 8.0 E/e' average: 10.0 MV dec time: 0.19 sec SV(LVOT): 96.7 ml Reading Physician:
== END ==
PROVIDERS: Family Provider Student in an Organized Health Care Education/Training Program; PCP Student in an Organized Health Care Education/Training Program; Referring Provider Internal Medicine; Visit Provider Internal Medicine
DX: I25.119 Atherosclerotic heart disease of native coronary artery with unspecified angina pectoris (principal); R06.09 Other forms of dyspnea
CPT/HCPCS: 93306

== ENCOUNTER → 2024-04-07 11:56 | Outpatient (CLI) | payer MEDICARE, OTHER, SELFPAY ==
[2024-04-07 12:33] LABS: Hematocrit 43.3 % (41-53); Hemoglobin 14.4 g/dL (13.5-17.5)
[2024-04-07 12:51] LABS: Blood Urea Nitrogen 13 mg/dL (9-20); Calcium 9.8 mg/dL (8.4-10.2); Carbon Dioxide 27 mmol/L (22-32); Chloride 105 mmol/L (98-107); Estimated Glomerular Filt Rate > 60 mL/min (>60); Glucose 100 mg/dL (80-110); HEMOLYSIS < 15 (0-50); Potassium 4.7 mmol/L (3.4-5.1); Sodium 140 mmol/L (137-145)
[2024-04-07 15:59] LABS: Creatinine Urine Random 499.25 mg/dL; Protein (Total) Urine Random < 5 mg/dL (0-12); Protein Creatinine Ratio Urine 0.01 GRAM/24H
== END ==
LOC: LAB 12:00
PROVIDERS: Family Provider Student in an Organized Health Care Education/Training Program; PCP Student in an Organized Health Care Education/Training Program; Referring Provider Student in an Organized Health Care Education/Training Program; Visit Provider Student in an Organized Health Care Education/Training Program
DX: N05.9 Unspecified nephritic syndrome with unspecified morphologic changes (principal); D70.9 Neutropenia, unspecified; D63.1 Anemia in chronic kidney disease; R80.9 Proteinuria, unspecified
CPT/HCPCS: 36415; 80048; 82570; 84156; 85014; 85018

== ENCOUNTER → 2024-06-10 15:39 | Outpatient (CLI) | payer MEDICARE, OTHER, SELFPAY ==
--- NOTE | 2024-06-10 15:41 | DI.US.S_ITS ---
PROCEDURE: US RENAL COMPLETE INDICATIONS: CHRONIC KIDNEY DISEASE STAGE 2 TECHNIQUE: Real-time scanning was performed of the kidneys and bladder, with image documentation. COMPARISON: None. FINDINGS: Kidneys: Kidneys are normal in size. Right kidney measures 12 cm long; left kidney measures 10.8 cm long. Right renal cortical thickness is 1.8 cm; left renal cortical thickness is 2.5 cm. Renal cortical echotexture is slightly increased. No hydronephrosis or nephrolithiasis. No suspicious solid mass lesions. Benign left-sided renal cysts. Suspected vascular calcifications. Bladder: Pre-void bladder volume is 284 mL. Post-void residual is 44 mL. Pre-void images demonstrate no intraluminal masses or stones. On pre-void images, both ureteral jets are noted with color Doppler interrogation. (Of note, ureteral jets may not be detectable in up to 25% of cases due to insufficient differences in specific gravity between ureteral and bladder urine). Miscellaneous: No free pelvic fluid. Hepatic steatosis and hepatomegaly. IMPRESSION: Increased renal cortical echogenicity, consistent with chronic parenchymal disease. Dictated by: Devin Cheney M.D. on 06/11/2024 at 10:40 Approved by: Devin Cheney M.D. on 06/11/2024 at 10:41
== END ==
PROVIDERS: Family Provider Student in an Organized Health Care Education/Training Program; PCP Student in an Organized Health Care Education/Training Program; Referring Provider Student in an Organized Health Care Education/Training Program; Visit Provider Student in an Organized Health Care Education/Training Program
DX: N18.2 Chronic kidney disease, stage 2 (mild) (principal); N28.1 Cyst of kidney, acquired; K76.0 Fatty (change of) liver, not elsewhere classified; R16.0 Hepatomegaly, not elsewhere classified
CPT/HCPCS: 76770

== ENCOUNTER 2024-06-24 08:29 | Day surgery (SDC) | payer MEDICARE, OTHER, SELFPAY ==
--- NOTE | 2024-06-24 | PATH_ITS ---
[facility] Accession Number: [id number] No. of containers..03 Tissue . 01 Material submitted: . PART A: colon - APPENDICEAL ORIFICE POLYP PART B: colon - DESCENDING POLYPS PART C: colon - RECTAL POLYPS . 01 Diagnosis: A. APPENDICEAL ORIFICE: Tubular adenoma. . B. DESCENDING COLON: Tubular adenomas. . C. RECTUM: Hyperplastic polyps. [facility] 06/25/2024 1525 Local . 01 Electronically signed: . Natasha Ferreira DO, Pathologist NPI- [id number] . 01 Gross description: . Part A: APPENDICEAL ORIFICE POLYP: Received in formalin are multiple fragment(s) of badillo, soft tissue measuring 0.1 x 0.1 x 0.1 cm to 0.4 x 0.3 x 0.3 cm submitted entirely in 1 cassette(s) Part B: DESCENDING POLYPS: Received in formalin are 4 fragment(s) of badillo, soft tissue measuring 0.1 x 0.1 x 0.1 cm to 0.5 x 0.4 x 0.4 cm submitted entirely in 1 cassette(s) Part C: RECTAL POLYPS: Received in formalin are 2 fragment(s) of badillo, soft tissue measuring 0.3 x 0.3 x 0.3 cm to 0.7 x 0.3 x 0.3 cm submitted entirely in 1 cassette(s) /[facility] 06/24/2024 2331 Local . 01 Pathologist provided ICD-10: Z12.11 . 01 CPT . 272319, 414121, 458473 Specimen Comment: A courtesy copy of this report has been sent to [phone] Performed at: [address] [id number] MD Tej Oliva MD Phone: [phone]
[2024-06-24] MEDS: LACTATED RINGERS 1,000 ML 42 ML IV (09:21)
[2024-06-24 09:40] LABS: COVID-19 CEPHEID 4-PLEX PCR Negative (Negative); Influenza A - CEPHEID Flu A NEGATIVE (NEGATIVE); Influenza B - CEPHEID Flu B NEGATIVE (NEGATIVE); Respiratory Syncytial Virus Negative (Negative)
--- NOTE | 2024-06-24 10:23 | PM.HP.IH.1 ---
History of Present Illness History of Present Illness Date Patient Seen: 06/24/24 Time Patient Seen: 10:23 Chief complaint: SDC Narrative: Giuliano is a 68-year-old man here for colonoscopy. He has never had one before. No family history of colon cancer. [facility] Medical History (Updated 06/14/24 @ 09:20 by Taylor Sarabia MD) Wears glasses Hearing decreased Fever Fatigue Surgical History (Updated 02/09/23 @ 20:48 by Anuja Lim) Anesthesia History of knee surgery Family History (Updated 02/09/23 @ 20:49 by Anuja Lim) Father Cancer Mother Cancer Social History marital status: number of children: 1 occupational status: other (retired) Smoking Status: Former smoker alcohol intake: current substance use type: marijuana Meds Home Medications and Allergies Home Medications Medication Instructions Recorded Confirmed Type semaglutide 0.25 mg or 0.5 mg (2 0.5 mg (0.736 mL) SUBCUT QWEEK #9 03/11/24 06/24/24 Rx mg/3 mL) subcutaneous pen injector mL tamsulosin 0.4 mg capsule 0.4 mg PO DAILY #90 caps 06/07/24 06/24/24 Rx aspirin 81 mg tablet,delayed 81 mg PO DAILY 06/24/24 06/24/24 History release atorvastatin 40 mg tablet (Lipitor) 40 mg PO DAILY 06/24/24 06/24/24 History fluticasone propionate 50 1 spray intranasal BID 06/24/24 06/24/24 History mcg/actuation nasal spray,suspension Allergies Allergy/AdvReac Type Severity Reaction Status Date / Time No Known Drug Allergies Allergy Verified 06/24/24 09:03 Exam Const General: No acute distress Resp Effort & Inspection: normal respiratory effort Objective Labs Labs: Laboratory Results - last 24 hr 06/24/24 08:44 SARS-CoV-2 (PCR) Negative Influenza A (RT-PCR) Flu a negative Influenza B (RT-PCR) Flu b negative RSV (PCR) Negative Assessment & Plan Assessment and plan (1) Colon cancer screening: Status: Acute Plan Colonoscopy Time-Based Coding :: [TOTAL MINUTES] spent with patient and on the chart (including review of chart, obtaining history, exam, reviewing outside data, placing orders, documenting exam and treatment plan, and counseling patient) on [DATE]. PROFEE Clay Modeler Document charge(s): No
[2024-06-24 10:58] VITALS: BP 127/83; PULSE 73; RESP 19; TEMP 36.7; O2SAT 96
--- NOTE | 2024-06-24 10:58 | PM.OP.COLON ---
Operative Date/Time/Diagnoses Date of procedure: 06/24/24 Time of procedure: 10:58 Pre-op diagnosis: Colon cancer screening Post-op diagnosis: same Procedure & Clinicians Study performed: Colonoscopy Same procedure as scheduled: Yes Surgeon: Parish Newell Procedure Notes Procedure in detail: Surgeon: Parish Newell MD Anesthesia: Marline Talbert CRNA Procedure: The patient was brought to the endoscopy suite, placed in left lateral decubitus position. The patient was connected to monitoring devices. A time-out was performed. Sedation was administered. Once the patient was adequately sedated, a digital rectal exam was performed and was normal. The scope was then inserted and advanced to the cecum where the appendiceal orifice was identified and photographed. The scope was then slowly withdrawn over greater than 6 minutes. The mucosa was thoroughly inspected. There appeared to be a small polyp appendiceal orifice which was removed with a cold snare. There were 2 small polyps in the descending colon removed with a cold snare and sent together. There were 2 small polyps in the rectum removed with cold snare and sent together. The scope was retroflexed in the rectum. [] The scope was straightened and removed. The patient was awakened and brought to recovery. Scope withdrawal time: 14 minutes Sedation time: 23 minutes EBL: 5 mL Findings: A small appendiceal orifice polyp, 2 small descending colon polyps and 2 small rectal polyps Post-procedure Disposition: PACU
[2024-06-24 11:03] VITALS: BP 150/84; PULSE 77; RESP 19; TEMP 36.6; O2SAT 96
== END 2024-06-24 11:15 | disposition home or self-care (01) ==
PROVIDERS: Nurse Anesthetist, Certified Registered; Family Provider Student in an Organized Health Care Education/Training Program; PCP Student in an Organized Health Care Education/Training Program; Referring Provider Surgery; Visit Provider Surgery
PROC: 0DJD8ZZ Inspection of Lower Intestinal Tract, Via Natural or Artificial Opening Endoscopic (ICD-10-PCS; CPT 45378; principal; 2024-06-24 10:00)
DX: Z12.11 Encounter for screening for malignant neoplasm of colon (principal); Z11.52 Encounter for screening for COVID-19; Z87.891 Personal history of nicotine dependence; D12.1 Benign neoplasm of appendix; D12.4 Benign neoplasm of descending colon; K62.1 Rectal polyp
CPT/HCPCS: 45385; 0241U; J2704

== ENCOUNTER → 2024-09-22 07:50 | Outpatient (CLI) | payer MEDICARE, OTHER, SELFPAY ==
[2024-09-22 08:34] LABS: Cholesterol 181 mg/dL (140-199); HDL Cholesterol 92 mg/dL (40-60); Triglycerides 108 mg/dL (35-150)
[2024-09-22 08:40] LABS: Microalbumi Creatinin Ratio Ur 4.0 ug/mg CR (<30)
[2024-09-22 09:04] LABS: Cortisol AM (Before 10AM) 11.5 ug/dL (4.46-22.7)
== END ==
PROVIDERS: Family Provider Student in an Organized Health Care Education/Training Program; PCP Student in an Organized Health Care Education/Training Program; Referring Provider Student in an Organized Health Care Education/Training Program; Visit Provider Student in an Organized Health Care Education/Training Program
DX: I12.9 Hypertensive chronic kidney disease with stage 1 through stage 4 chronic kidney disease, or unspecified chronic kidney disease (principal); N18.1 Chronic kidney disease, stage 1; I95.1 Orthostatic hypotension; E78.5 Hyperlipidemia, unspecified; Z83.3 Family history of diabetes mellitus
CPT/HCPCS: 36415; 80061; 82024; 82043; 82088; 82533; 82570; 84244

== ENCOUNTER → 2024-10-06 11:12 | Outpatient (CLI) | payer MEDICARE, OTHER, SELFPAY | PROVIDERS: Family Provider Student in an Organized Health Care Education/Training Program; PCP Student in an Organized Health Care Education/Training Program; Referring Provider Student in an Organized Health Care Education/Training Program; Visit Provider Student in an Organized Health Care Education/Training Program | DX: R55 Syncope and collapse (principal); Z87.891 Personal history of nicotine dependence; R42 Dizziness and giddiness; J98.8 Other specified respiratory disorders; R94.2 Abnormal results of pulmonary function studies | CPT/HCPCS: 94060; 94726; 94729 ==

== ENCOUNTER → 2025-01-26 06:55 | Outpatient (CLI) | payer MEDICARE, OTHER, SELFPAY ==
--- NOTE | 2025-01-26 06:56 | DI.US.S_ITS ---
PROCEDURE: US ABD AORTA ANEURYSM SCREEN
== END ==
PROVIDERS: Family Provider Student in an Organized Health Care Education/Training Program; PCP Student in an Organized Health Care Education/Training Program; Referring Provider Student in an Organized Health Care Education/Training Program; Visit Provider Student in an Organized Health Care Education/Training Program
DX: Z13.6 Encounter for screening for cardiovascular disorders (principal); Z12.5 Encounter for screening for malignant neoplasm of prostate; F17.200 Nicotine dependence, unspecified, uncomplicated; G47.33 Obstructive sleep apnea (adult) (pediatric); E66.811 Obesity, class 1; I10 Essential (primary) hypertension
CPT/HCPCS: 36415; 76706; G0103